=== PATIENT | female | born 1955 | race Caucasian/White ===

== ENCOUNTER → 2020-09-17 07:40 | Outpatient (CLI) | payer OTHER, SELFPAY ==
[2020-09-17 08:11] LABS: Add Manual Diff / Slide Review NO; Basophils Absolute Auto 0 /uL (0-100); Basophils Percent Auto 0.7 % (0-2); Eosinophils Absolute Auto 100 /uL (0-450); Eosinophils Percent Auto 1.5 % (2-4); Hematocrit 40.3 % (36-46); Hemoglobin 13.7 g/dL (12.0-16.0); Lymphocytes Absolute Auto 3400 /uL (1100-4500); Lymphocytes Percent Auto 51.5 % (25-40); Mean Corpuscular HGB Conc 33.9 % (30-36); Mean Corpuscular Hemoglobin 33.9 PG (26-34); Mean Corpuscular Volume 99.9 fL (80-100); Monocytes Absolute Auto 500 /uL (0-900); Monocytes Percent Auto 7.8 % (3-14); Neutrophils Absolute Auto 2500 /uL (1500-7000); Neutrophils Percent Auto 38.5 % (50-75); Platelet Count 224 X10^3/uL (150-400); Red Blood Cell Count 4.04 X10^6/uL (4.0-5.2); Red Cell Distribution Width 13.3 % (11.6-14.8); White Blood Cell Count 6.6 X10^3/uL (4.5-11.0)
[2020-09-17 08:34] LABS: Alanine Aminotransferase 28 IU/L (<35); Albumin 4.2 g/dL (3.5-5.0); Albumin Globulin Ratio 1.4 (1.0-2.8); Alkaline Phosphatase 71 U/L (38-126); Aspartate Aminotransferase 38 IU/L (14-36); BUN Creatinine Ratio 22.2 (6-22); Bilirubin Total 0.5 mg/dL (0.2-1.3); Blood Urea Nitrogen 14 mg/dL (7-17); Calcium 9.3 mg/dL (8.4-10.2); Carbon Dioxide 32 mmol/L (22-32); Chloride 101 mmol/L (98-107); Cholesterol 249 mg/dL (140-199); Estimated Glomerular Filt Rate > 60.0 mL/min (>60); Glucose 90 mg/dL (80-110); HDL Cholesterol 99 mg/dL (40-60); HEMOLYSIS < 15 (0-50); LDL Cholesterol Calculated 136 mg/dL (<100); Potassium 3.9 mmol/L (3.4-5.1); Sodium 136 mmol/L (137-145); Total Protein 7.2 g/dL (6.3-8.2); Triglycerides 68 mg/dL (35-150)
== END ==
PROVIDERS: PCP Family Medicine; Referring Provider Family Medicine; Visit Provider Family Medicine
DX: R63.6 Underweight (principal); Z13.220 Encounter for screening for lipoid disorders; Z92.89 Personal history of other medical treatment
CPT/HCPCS: 36415; 80053; 80061; 85025

== ENCOUNTER → 2020-10-18 13:52 | Outpatient (CLI) | payer OTHER, SELFPAY | PROVIDERS: PCP Family Medicine; Referring Provider Family Medicine; Visit Provider Family Medicine | DX: M81.0 Age-related osteoporosis without current pathological fracture (principal); Z13.820 Encounter for screening for osteoporosis; Z78.0 Asymptomatic menopausal state | CPT/HCPCS: 77080 ==

== ENCOUNTER → 2021-08-01 09:46 | Outpatient (CLI) | payer OTHER, SELFPAY ==
--- NOTE | 2021-08-01 09:48 | DI.RAD.S_ITS ---
PROCEDURE: XR LUMBAR SPINE 2-3V INDICATIONS: chronic back pain TECHNIQUE: Three views of the lumbar spine were acquired. COMPARISON: None. FINDINGS: Bones: 5 [id number] vertebrae are present. Generalized osteopenia. 8 mm grade 1-2 anterolisthesis of L4 on L5 and 6 mm grade 1 anterolisthesis of L5 on S1 are noted. L4 pars interarticularis defects not excluded. No vertebral body compression fractures. No suspicious bony lesions. Mild to moderate facet hypertrophy is seen throughout the lumbar spine. Disc space narrowing and degenerative endplate changes are most prominent at the L4-5 level. Soft tissues: Overlying bowel gas pattern is normal. No suspicious soft tissue calcifications. IMPRESSION: 1. Grade 1-2 anterolisthesis of L4 on L5 and grade 1 anterolisthesis of L5 on S1. 2. Arpu-qo-[id number] multilevel degenerative changes throughout the lumbar spine. Findings could be further evaluated with dedicated MRI if indicated clinically. Dictated by: Renan Bartholomew M.D. on 08/01/2021 at 10:36 Approved by: Renan Bartholomew M.D. on 08/01/2021 at 10:39
== END ==
PROVIDERS: PCP Family Medicine; Referring Provider Family Medicine; Visit Provider Family Medicine
DX: M54.41 Lumbago with sciatica, right side (principal); M43.16 Spondylolisthesis, lumbar region; M43.17 Spondylolisthesis, lumbosacral region; M47.816 Spondylosis without myelopathy or radiculopathy, lumbar region
CPT/HCPCS: 72100

== ENCOUNTER → 2021-09-05 16:30 | Outpatient (CLI) | payer OTHER, SELFPAY ==
--- NOTE | 2021-09-05 16:31 | DI.MRI.S_ITS ---
PROCEDURE: MR LUMBAR SPINE WO CON INDICATIONS: Disc degeneration, anterolisthesis TECHNIQUE: Noncontrast sagittal T1 spin echo and T2 fast echo, sagittal STIR, and T2 fast spin echo through the lumbar spine. In cases with scoliosis, additional coronal T2 fast spin echo may be performed. COMPARISON: [facility], CR, XR LUMBAR SPINE 2-3V, 08/01/2021, 9:37. FINDINGS: Image quality: Excellent. Alignment and Curvature: 5 lumbar type vertebral bodies are present by plain film. 10 mm of anterolisthesis of L4 on L5. 6 mm of anterolisthesis of L5 on S1. Bone Marrow: Marrow is of normal overall signal. No acute vertebral body compression fractures. Mild reactive signal throughout the endplates of the lumbar spine. Spinal Cord: Conus medullaris terminates at the L1-L2 disc space level. Visualized cord demonstrates normal signal and size. Paraspinous Soft Tissues: No paravertebral masses. T12-L1: Mild disc desiccation. No significant canal, or foraminal stenosis. L1-L2: Mild disc desiccation. No significant canal, or foraminal stenosis. L2-L3: Mild disc desiccation and diffuse disc bulge. Mild facet hypertrophy. Mild canal stenosis. Mild bilateral foraminal stenosis. L3-L4: Mild disc height loss and desiccation. Mild diffuse disc bulge. Mild facet hypertrophy. Mild canal stenosis. Mild bilateral foraminal stenosis. L4-L5: Moderate disc height loss and desiccation. Mild diffuse disc bulge. Moderate bilateral facet hypertrophy. Mild epidural lipomatosis. Moderate canal stenosis. Moderate right and moderate to severe left foraminal stenosis. Mild left L4 nerve root compression. L5-S1: Moderate disc height loss and desiccation. Mild diffuse disc bulge. Mild bilateral facet hypertrophy. Mild canal stenosis. Moderate to severe right and moderate left foraminal stenosis. Right L5 nerve root compression. IMPRESSION: 1. Multilevel degenerative disc and facet disease, as well as ligamentum flavum hypertrophy and epidural lipomatosis. 2. Multilevel canal stenoses, worst at L4-L5 where there is moderate canal stenosis. 3. Multilevel foraminal stenoses, worst at L4-L5 and L5-S1 where there is associated intraforaminal nerve root compression. Recommend correlation with clinical symptoms to ascertain relevance of these findings. 4. L4-L5 and L5-S1 spondylolisthesis as described above. Dictated by: Lux Stapleton M.D. on 09/06/2021 at 9:20 Approved by: Lux Stapleton M.D. on 09/06/2021 at 9:26
== END ==
PROVIDERS: PCP Family Medicine; Referring Provider Orthopaedic Surgery Orthopaedic Surgery of the Spine; Visit Provider Orthopaedic Surgery Orthopaedic Surgery of the Spine
DX: M43.17 Spondylolisthesis, lumbosacral region (principal); M48.062 Spinal stenosis, lumbar region with neurogenic claudication; M51.17 Intervertebral disc disorders with radiculopathy, lumbosacral region; M51.16 Intervertebral disc disorders with radiculopathy, lumbar region; M48.07 Spinal stenosis, lumbosacral region; G89.29 Other chronic pain
CPT/HCPCS: 72148

== ENCOUNTER → 2021-09-21 09:46 | Outpatient (CLI) | payer OTHER, SELFPAY ==
--- NOTE | 2021-09-21 09:48 | DI.CT.S_ITS ---
PROCEDURE: CT LUMBAR SPINE WO CON INDICATIONS: Spinal stenosis, lumbar region TECHNIQUE: Noncontrast 3 mm thick sections acquired from the T12 level to the sacrum. Sagittal and coronal reformats were constructed. For radiation dose reduction, the following was used: automated exposure control. COMPARISON: [facility], CR, XR LUMBAR SPINE 2-3V, 08/01/2021, 9:37. [facility], MR, MR LUMBAR SPINE WO CON, 09/05/2021, 17:14. FINDINGS: Image quality: This examination is limited by involuntary motion artifact. Bones: No acute vertebral body compression fractures. No suspicious lytic or blastic bony lesions. T12-L1: Normal. L1-L2: Normal. L2-L3: The disc height is well preserved. Mild generalized disc bulge is seen. Mild bilateral neural foraminal narrowing is seen. Mild central canal narrowing is seen. L3-L4: The disc height is well preserved. Mild to moderate disc bulge is seen. Mild to moderate facet hypertrophy is seen. Mild bilateral neural foraminal narrowing is seen. No significant central canal narrowing is seen. L4-L5: Grade 1 anterolisthesis is seen at this level, without associated pars defects. Mild loss disc height is seen. Moderate to prominent facet joint hypertrophy is seen. There is moderate right-sided and moderate to severe left-sided neural foraminal narrowing seen. There is a degree of compression seen upon the exiting nerve roots. There is severe central canal narrowing. L5-S1: Mild grade 1 anterolisthesis is seen at this level. The disc height is well preserved. At least moderate facet hypertrophy is seen. There is mild to moderate disc bulge. At least moderate bilateral neural foraminal narrowing can be seen. There is mild central canal narrowing. Soft tissues: No retroperitoneal masses or hematomas. Visualized aorta is normal in caliber. There is partial visualization of a right mammoplasty implant. A moderate amount of stool is seen within the colon. Tiny right-sided kidney stones are seen that measure up to 2 mm. IMPRESSION: Focal lower lumbar spine degenerative changes are seen at L4-L5 and L5-S1. The degenerative changes are overall better demonstrated on the recent prior lumbar MRI. Incidental note is made of: Right-sided mammoplasty implant Likely constipation The nonobstructing right-sided kidney stones Dictated by: Carlo Henry M.D. on 09/21/2021 at 10:29 Approved by: Carlo Henry M.D. on 09/21/2021 at 10:36
== END ==
PROVIDERS: PCP Family Medicine; Referring Provider Orthopaedic Surgery Orthopaedic Surgery of the Spine; Visit Provider Orthopaedic Surgery Orthopaedic Surgery of the Spine
DX: M48.061 Spinal stenosis, lumbar region without neurogenic claudication (principal); M47.816 Spondylosis without myelopathy or radiculopathy, lumbar region; M47.817 Spondylosis without myelopathy or radiculopathy, lumbosacral region; N20.0 Calculus of kidney
CPT/HCPCS: 72131

== ENCOUNTER → 2021-10-21 10:25 | Outpatient (CLI) | payer OTHER, SELFPAY | PROVIDERS: PCP Family Medicine; Referring Provider Family Medicine; Visit Provider Family Medicine | DX: M81.0 Age-related osteoporosis without current pathological fracture (principal); Z13.820 Encounter for screening for osteoporosis; Z78.0 Asymptomatic menopausal state | CPT/HCPCS: 77080 ==

== ENCOUNTER → 2021-10-21 14:38 | Outpatient (CLI) | payer OTHER, SELFPAY ==
[2021-10-21 16:27] LABS: Add Manual Diff / Slide Review NO; Basophils Absolute Auto 0 /uL (0-100); Basophils Percent Auto 0.5 % (0-2); Eosinophils Absolute Auto 100 /uL (0-450); Eosinophils Percent Auto 2.1 % (2-4); Hemoglobin 13.6 g/dL (12.0-16.0); Lymphocytes Absolute Auto 2300 /uL (1100-4500); Lymphocytes Percent Auto 35.1 % (25-40); Mean Corpuscular HGB Conc 35.7 % (30-36); Mean Corpuscular Hemoglobin 35.1 PG (26-34); Mean Corpuscular Volume 98.4 fL (80-100); Monocytes Absolute Auto 400 /uL (0-900); Monocytes Percent Auto 6.8 % (3-14); Neutrophils Absolute Auto 3700 /uL (1500-7000); Neutrophils Percent Auto 55.5 % (50-75); Platelet Count 208 X10^3/uL (150-400); Red Blood Cell Count 3.86 X10^6/uL (4.0-5.2); Red Cell Distribution Width 12.5 % (11.6-14.8); White Blood Cell Count 6.6 X10^3/uL (4.5-11.0)
[2021-10-21 16:44] LABS: BUN Creatinine Ratio 29.5 (6-22); Blood Urea Nitrogen 18 mg/dL (7-17); Calcium 9.1 mg/dL (8.4-10.2); Carbon Dioxide 30 mmol/L (22-32); Chloride 102 mmol/L (98-107); Estimated Glomerular Filt Rate > 60 mL/min (>60); Glucose 87 mg/dL (80-110); HEMOLYSIS < 15 (0-50); Potassium 4.3 mmol/L (3.4-5.1); Sodium 140 mmol/L (137-145)
[2021-11-15 11:08] LABS: Cholesterol 224 mg/dL (140-199); HDL Cholesterol 85 mg/dL (40-60); LDL Cholesterol Calculated 123 mg/dL (<100); Triglycerides 78 mg/dL (35-150)
== END ==
PROVIDERS: PCP Family Medicine; Referring Provider Orthopaedic Surgery Orthopaedic Surgery of the Spine; Visit Provider Orthopaedic Surgery Orthopaedic Surgery of the Spine
DX: Z01.818 Encounter for other preprocedural examination (principal); R73.9 Hyperglycemia, unspecified; Z01.812 Encounter for preprocedural laboratory examination; M81.0 Age-related osteoporosis without current pathological fracture; Z13.820 Encounter for screening for osteoporosis; Z78.0 Asymptomatic menopausal state; R74.8 Abnormal levels of other serum enzymes
CPT/HCPCS: 36415; 77080; 80048; 80061; 83036; 85025; 93005

== ENCOUNTER → 2021-11-15 09:11 | Outpatient (CLI) | payer OTHER, SELFPAY ==
[2021-11-15 10:15] LABS: COVID19 -Nasal RAPID Negative (Negative)
== END ==
PROVIDERS: PCP Family Medicine; Referring Provider Orthopaedic Surgery Orthopaedic Surgery of the Spine; Visit Provider Orthopaedic Surgery Orthopaedic Surgery of the Spine
DX: Z20.822 Contact with and (suspected) exposure to COVID-19 (principal)
CPT/HCPCS: 87635; C9803

== ENCOUNTER 2021-11-18 06:16 | Inpatient (IN) | payer OTHER, SELFPAY ==
[2021-11-11 12:35] VITALS: BMI 22.4
[2021-11-18] VITALS (13 sets, daily range): BP systolic 109–129; BP diastolic 49–69; PULSE 60–91; RESP 16–20; TEMP 35.7–36.8; O2SAT 94–99; BMI 22.4
[2021-11-18] MEDS: LACTATED RINGERS 1,000 ML 42 ML IV ×2 (07:17→09:29)
[2021-11-18] MEDS: PREGABALIN 75 MG CAPSULE PO (07:21)
[2021-11-18] MEDS: ACETAMINOPHEN IV 1,000 MG/100 ML VIAL 400 MG IV (07:21)
--- NOTE | 2021-11-18 07:40 | PM.PREOP ---
Pre-operative Note COVID-19 COVID-19 status: Negative Result date/Date tested (Pos, Neg/Pending): 11/17/21 Criteria for continued procedure: Expected advancement of disease process, Possibility delay results in more complex future surgery or treatment, Increased loss of function, Continuing or worsening of significant or severe pain, Deterioration of the patient's condition or overall health and Delay expected to result in less-positive ultimate med/surg outcome Interval Note History & Physical reviewed/Exam performed by Physician: Yes Changes to H&P: No
[2021-11-18] MEDS: CEFAZOLIN 2 GM/100 ML PREMIX 100 ML IV ×2 (08:14→15:59)
--- NOTE | 2021-11-18 08:33 | SUR.OPER ---
Prone on spine table, head in foam head support, padded chest and pelvic supports, gel pad at knees, lower legs supported by pillows; nipples, genitalia and toes free of pressure, arms secured on foam padded arm boards at <90 degrees abduction. Tape over blanket at thigh secured to table.
[2021-11-18] MEDS: BUPIVACAINE 0.25% (PF) 30 ML, EPINEPHrine 0.3 MG INJ (08:43)
[2021-11-18] MEDS: BUPIVACAINE LIPOSOME 266 MG/20 ML VIAL INJ (08:43)
--- NOTE | 2021-11-18 11:00 | DI.RAD.S_ITS ---
PROCEDURE: XR LUMBAR SPINE 2-3V INDICATIONS: L4-5, L5-S1 ROBOT TLIF TECHNIQUE: 2 intraoperative views of the lumbar spine were acquired. COMPARISON: [facility], , XR LUMBAR SPINE 2-3V, 08/01/2021, 9:37. FINDINGS: Pedicle screw fixation spanning L4-S1 with intervertebral body spacers. Anterolisthesis of L4 on L5 is similar to slightly improved. IMPRESSION: Intraoperative guidance provided. Dictated by: Stevie Barnes M.D. on 11/18/2021 at 12:31 Approved by: Stevie Barnes M.D. on 11/18/2021 at 12:32
--- NOTE | 2021-11-18 11:51 | P.OP_ITS ---
Operative Date/Time/Diagnoses Date of procedure: 11/18/21 Time of procedure: 07:40 Pre-op diagnosis: 1. L4-5, L5-S1 spondylolisthesis 2. L4-5, L5-S1 spinal stenosis with neurogenic claudication Post-op diagnosis: same Procedure & Clinicians Procedure: 1. L4-5, L5-S1 Postero-lateral and posterior interbody fusion 2. L4-5, L5-S1 interbody cage placement. 3. L4-5, L5-S1 decompressive laminectomy with bilateral facetecomies 4. L4-5, L5-S1 Posterior segmental instrumentation 5. Langlois of bone marrow from iliac crest 6. Utilization of microsurgical technique and operating microscope 7. Utilization of robotic assisted navigation Same procedure as scheduled: Yes Indications: Patient has been having chronic back pain and worsening lumbar radiculopathy. Patient failed multiple conservative management with worsening pain weakness and numbness in her lower extremity. Patient has been having difficulty performing activity of daily living. After discussing risks benefits of treatment options, patient elected proceed with surgery. Surgeon: Gregory Pardo Storage Administrator: Tung Littlejohn Click Yes if Unassisted: No Anesthesia Type: General Operative Notes Closure Type: primary Specimen(s): none sent Prosthetic devices, grafts, tissues, transplants, or devices: Globus CREO MIS screws, Rise cages Applied: catheter Estimated Blood Loss (mL): 100 Blood products transfused: none Procedure in detail: Patient was seen in the preoperative area. Risks and benefits of the surgery was discussed with the patient. Informed consent was obtained from the patient and placed in the chart. Surgical site was marked. Patient was taken to the operative room. General anesthesia was administered. Prophylactic antibiotic was given to the patient less than 30 min before the incision was made. Patient was placed into a prone position on the Som table. Patient's back was then prepped and draped in the sterile fashion. Time-out was performed at this time. After patient was prepped and draped, patient's PSIS was palpated and marked bilaterally. Small 1 cm incision was made over the PSIS for placement of the reference probes. Two trocar was placed into the PSIS 1 on each side. The reference probe was attached to the trocar of the reference apparatus. At this time the C-arm imaging was used to confirm AP and lateral of L4-L5, L5- S1 vertebrae and merged the C-arm imaging using the [employer] robotic navigation system with the CT of the lumbar spine. After successful merging was completed and confirmed, skin marker was used to aman out the skin incision using the Kihon robotic arm. Bilateral incision was made at this time. Pre templated trajectory was used and guided using the [employer] robotic navigation system for bilateral L4, L5, S1 pedicle screw placement. This was done by using the robotic arm to guide the high-speed bur to make a cortical entry point. Next a drill was placed also using the robotic arm and guided using the navigation system drilling partially through bilateral L4, L5 and S1 pedicles. Next L4, L5, S1 pedicle screws it was pre templated and measured was placed onto the power waste collection driver and inserted into the pedicles bilaterally. After all 6 screws were placed C-arm imaging was taken of both AP and lateral to confirm the placement. Excellent placement of the screws were confirmed and a matched precisely with the pre planned screw placement using the navigation sys tem. MARs retractor was inserted using [employer] guidence. Globus MARS retractors was placed inside the incision and docked onto the L4 and L5 lamina. Using microsurgical technique and operating microscope, a L4, L5 laminectomy and L4-5, L5-S1 facetectomy was performed using a Kerrison rongeur. Patient was found have severe lateral recess and neural foramen stenosis which was fully d ecompressed after the laminectomy facetectomy. More than 75% of the facets were removed during the process of decompression rendering L4-5, L5-S1 level grossly unstable and required a fusion procedure at the same time. The disc space at L4-5, L5-S1 was identified, and a total diskectomy was performed at L4-5, L5-S1 level. The endplates were decorticated using a rasp and shaver. The total diskectomy and decortication was performed at L4-5, L5-S1 level in order to to accomplish a L4-5, L5-S1 fusion. The local bone from the laminectomy and facetectomy was saved for local bone grafting. After the total diskectomy and decortication was completed, Trifecta bone graft material was combined with local bone that was harvested earlier. At this time, a separate skin is incision was made over the iliac crest. A Jamshidi needle was inserted into the iliac crest through a separate skin incision. 5 cc of bone marrow aspiration was obtained through the separate skin incision using a Jamshidi needle from the iliac crest. The bone marrow aspiration was combined with local bone and the Trifecta bone grafting material. The bone grafting material was placed into the L4-5, L5-S1 interbody space along with a expandable cage. The cage was expanded to its maximum height using the torque limiting screwdriver. The disc preparation as well as the cage insertion were also performed under navigation guidance. After the cage was placed, AP and lateral C-arm imaging was taken to confirm placement of the cage and excellent position was confirmed. Globus MARS retractor was inserted and docked onto the L4-5, L5-S1 posterolateral gutter on the right side. Using the power drill, posterior- lateral decortication was performed at L4-5, L5-S1 level until bleeding cortical bone was identified. The remaining bone grafting material was placed into the L4-5, L5-S1 posterior lateral gutter he order to accomplish posterolateral fusion at the L4-5, L5-S1 level. At this time the tulips were attached to the L4, L5, S1 pedicle screw shanks. After measuring the length of the rods, they were inserted into the tulips of the pedicle screws and locked in place using locking caps and torque limiting screwdriver bilaterally. Total 6 caps and 2 titanium rods was used in order to complete the posterior instrumentation construct. The locking caps reduce the spondylolisthesis when it was placed through the threaded reduction blade attached to the tulips. After all the hardware was placed, and confirmed with AP and lateral C-arm imaging, the wound was then irrigated with sterile normal saline and packed with Ray-Arvin gauze for 3 min to accomplish hemostasis. After the gauze was removed the deep fascia was closed with #1 Vicryl suture. The subcutaneous layer was closed with 2-0 Vicryl. The skin was closed with skin zion. Patient tolerated the procedure well. There were no complications. Neuro monitoring system was used to monitor patient's neurologic status throughout entire procedure. There was no disturbance of the neural monitoring signals throughout the case. Complications: none Post-operative Condition: stable Disposition: PACU Plan for aftercare: Admit to inpatient hospital
[2021-11-18] MEDS: HYDROMORPHONE 2 MG INJ IV (12:13)
[2021-11-18] MEDS: OXYCODONE IR 5 MG TABLET PO (12:19)
[2021-11-18] MEDS: SODIUM CHLORIDE 0.9% 1,000 ML 100 ML IV (14:33)
--- NOTE | 2021-11-18 15:12 | PC.NURSE ---
Pt to room 209 via bed from PACU. Pt is awake, alert, and oriented. States she is comfortable at 4/10 pain. IVF infusing as ordered. SCDS on and running. Oriented Pt to room, call light, bed controls, and tv controls. Reminded Pt that she is not to get out of bed without assistance and bed alarm has been placed on for safety.
--- NOTE | 2021-11-18 15:57 | PT-IP ANOTE ---
Received PT orders, reviewed the chart, and met with pt this PM. Was able to gather PLOF but pt was reporting 8/10 pain and felt too woozy to initiate PT. Notified RN. Will follow up Thursday AM.
[2021-11-18] MEDS: HYDROMORPHONE 0.5 MG INJ IV (15:59)
[2021-11-18] MEDS: ONDANSETRON 4 MG/2 ML INJ IV (15:59)
[2021-11-18] MEDS: OXYCODONE IR 5 MG TABLET 10 MG PO (19:33)
[2021-11-18] MEDS: DOCUSATE 100 MG CAPSULE PO (21:44)
[2021-11-18] MEDS: hydrOXYzine pamoate 25 MG CAPSULE PO (21:44)
[2021-11-18] MEDS: SENNOSIDES 8.6 MG TABLET 17.2 MG PO (21:44)
[2021-11-19] VITALS (9 sets, daily range): BP systolic 90–115; BP diastolic 37–52; PULSE 65–75; RESP 15–20; TEMP 35.6–36.4; O2SAT 93–98
[2021-11-19] MEDS: CEFAZOLIN 2 GM/100 ML PREMIX 100 ML IV (00:15)
[2021-11-19] MEDS: SODIUM CHLORIDE 0.9% 1,000 ML 100 ML IV ×2 (00:16→11:12)
[2021-11-19] MEDS: OXYCODONE IR 5 MG TABLET 10 MG PO ×5 (00:16→19:45)
[2021-11-19 07:40] LABS: Add Manual Diff / Slide Review NO; Basophils Absolute Auto 0 /uL (0-100); Basophils Percent Auto 0.1 % (0-2); Eosinophils Absolute Auto 0 /uL (0-450); Eosinophils Percent Auto 0.1 % (2-4); Hematocrit 30.1 % (36-46); Hemoglobin 10.7 g/dL (12.0-16.0); Lymphocytes Absolute Auto 2800 /uL (1100-4500); Lymphocytes Percent Auto 25.9 % (25-40); Mean Corpuscular HGB Conc 35.5 % (30-36); Mean Corpuscular Hemoglobin 34.7 PG (26-34); Mean Corpuscular Volume 97.7 fL (80-100); Monocytes Absolute Auto 900 /uL (0-900); Neutrophils Absolute Auto 7200 /uL (1500-7000); Neutrophils Percent Auto 65.9 % (50-75); Platelet Count 159 X10^3/uL (150-400); Red Blood Cell Count 3.08 X10^6/uL (4.0-5.2); Red Cell Distribution Width 12.7 % (11.6-14.8); White Blood Cell Count 10.9 X10^3/uL (4.5-11.0)
[2021-11-19 07:55] LABS: Alanine Aminotransferase 32 IU/L (<35); Albumin 3.2 g/dL (3.5-5.0); Albumin Globulin Ratio 1.4 (1.0-2.8); Alkaline Phosphatase 54 U/L (38-126); Aspartate Aminotransferase 39 IU/L (14-36); BUN Creatinine Ratio 22.6 (6-22); Bilirubin Total 0.2 mg/dL (0.2-1.3); Blood Urea Nitrogen 12 mg/dL (7-17); Calcium 8.1 mg/dL (8.4-10.2); Carbon Dioxide 27 mmol/L (22-32); Chloride 106 mmol/L (98-107); Cholesterol 173 mg/dL (140-199); Estimated Glomerular Filt Rate > 60 mL/min (>60); Globulin 2.3 g/dL (1.7-4.1); Glucose 99 mg/dL (80-110); HDL Cholesterol 66 mg/dL (40-60); HEMOLYSIS < 15 (0-50); LDL Cholesterol Calculated 96 mg/dL (<100); Potassium 3.8 mmol/L (3.4-5.1); Sodium 137 mmol/L (137-145); Total Protein 5.5 g/dL (6.3-8.2); Triglycerides 56 mg/dL (35-150)
[2021-11-19] MEDS: MAGNESIUM HYDROXIDE 30 ML UDC PO (08:19)
[2021-11-19] MEDS: ONDANSETRON 4 MG/2 ML INJ IV ×2 (08:20→23:17)
[2021-11-19] MEDS: DOCUSATE 100 MG CAPSULE PO ×2 (08:21→19:45)
--- NOTE | 2021-11-19 08:53 | P.PN_ITS ---
Subjective Subjective Date Patient Seen: 11/19/21 Time Patient Seen: 08:53 Interval history: Patient is complaining of moderate to severe low back pain. She has not worked with physical therapy or occupational therapy yet. She is somewhat hypotensive at 96/40. Not complaining of dizziness or lightheadedness currently. She notes she has some new left thigh numbness since surgery, which is slowly resolving. Exam Vital Signs (past 8 hours): - 11/19/21 05:00 11/19/21 05:20 Temperature 96.9 F L Pulse Rate 70 Respiratory Rate 17 15 Blood Pressure 96/40 L 98/48 L Pulse Oximetry 94 93 Oxygen Flow Rate 0 0 Oxygen Delivery Method Room Air Oxygen Flow Rate 0 Narrative Exam Narrative: Pleasant 66-year-old female, resting comfortably in bed, no acute distress. Dressings demonstrates some scant serosanguineous drainage, no surrounding erythema, induration, nehemiah pus. Bilateral lower extremity: Motor functions are grossly intact, sensation is grossly intact light touch, calves are soft and nontender to palpation. Objective Labs Result Diagrams: 11/19/21 06:40 11/19/21 06:40 Labs: Laboratory Results - last 24 hr 11/19/21 11/19/21 11/19/21 06:40 06:40 06:40 WBC 10.9 RBC 3.08 L Hgb Cancelled 10.7 L Hct Cancelled 30.1 L MCV 97.7 MCH 34.7 H MCHC 35.5 RDW 12.7 Plt Count 159 Neut % (Auto) 65.9 Lymph % (Auto) 25.9 Person % (Auto) 8.0 Eos % (Auto) 0.1 L Baso % (Auto) 0.1 Neut # (Auto) 7200 H Lymph # (Auto) 2800 Person # (Auto) 900 Eos # (Auto) 0 Baso # (Auto) 0 Sodium 137 Potassium 3.8 Chloride 106 Carbon Dioxide 27 BUN 12 Creatinine 0.53 Estimated GFR > 60 BUN/Creatinine Ratio 22.6 H Glucose 99 Calcium 8.1 L Total Bilirubin 0.2 AST 39 H ALT 32 Alkaline Phosphatase 54 Total Protein 5.5 L Albumin 3.2 L Globulin 2.3 Albumin/Globulin Ratio 1.4 Triglycerides 56 Cholesterol 173 LDL Cholesterol, Calc 96 HDL Cholesterol 66 H [facility] Medical History Anterolisthesis of lumbosacral spine Elevated liver enzymes History of HPV infection Low back pain with right-sided sciatica Normal colonoscopy Osteoporosis Spinal stenosis Varicose vein of leg Welcome to Medicare preventive visit Surgical History History of open reduction and internal fixation (ORIF) procedure History of tonsillectomy and adenoidectomy Hx of abdominoplasty Hx of breast augmentation Hx of cosmetic surgery Social History household members: family Smoking Status: Never smoker alcohol intake: former Assessment & Plan Post-op Postoperative Procedures: Procedures Operation Date: 11/18/21 07:45 Actual Procedure Side Surgeon p L4-5, L5-S1 TLIF w. posterior instrumentation -Robot Not Applicable Gregory Pardo MD Postoperative day: 1 Postoperative status narrative: -stable status post L4-5, L5-S1 TLIF Postoperative plan narrative: -mobilize with PT/OT. Weightbearing as tolerated with front wheel walker. Limit bending, lifting, twisting x6 weeks -continue with multimodal pain management. Encouraged use of oral pain medications. Will add tramadol for breakthrough pain. Patient declined to make Tylenol scheduled. -DC urinary catheter today -continue to monitor for hypotension -disposition: Likely home tomorrow with daughter Quality VTE Deep Vein Thrombosis/Pulmonary Embolism Present on Admission: No
--- NOTE | 2021-11-19 09:40 | PT.IIE ---
Current Diagnoses Hyperlipidemia, unspecified (11/18/21) Spondylolisthesis, lumbar region (11/18/21) Spinal stenosis, lumbar region with neurogenic claudication (11/18/21) Lumbago with sciatica, right side (11/18/21) Age-related osteoporosis without current pathological fracture (11/18/21) Abnormal levels of other serum enzymes (11/18/21) Surgery Performed Operation Date: 11/18/21 07:45 Actual Procedures p L4-5, L5-S1 TLIF w. posterior instrumentation -Robot(Not Applicable) - Gregory Pardo MD Surgical History (Last Reviewed 11/19/21 @ 08:55 by Bernadette Blount PA-C) History of open reduction and internal fixation (ORIF) procedure History of tonsillectomy and adenoidectomy Hx of abdominoplasty Hx of breast augmentation Hx of cosmetic surgery Medical History (Last Reviewed 11/19/21 @ 08:55 by Bernadette Blount PA-C) Anterolisthesis of lumbosacral spine Elevated liver enzymes History of HPV infection Low back pain with right-sided sciatica Normal colonoscopy Osteoporosis Spinal stenosis Varicose vein of leg Welcome to Medicare preventive visit Physical Therapy Inpatient Evaluation/Re-Eval M1 PT/OT-IP Prior Functional Status Start: 11/18/21 14:52 Freq: NEEDED Status: Active Protocol: Document 11/19/21 09:40 AB (Rec: 11/19/21 14:00 AB [id number]) Medical Review Prior Functional Status Medical History Reviewed Yes Communication able to make needs known Mobility and Gait pt stated that she is independent with all mobilities without assistive device. Social History Household Members family Living Arrangements House Number of Floors (Floors) One Floor Number of Stairs To Enter/Railing? 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 pt lives in [place] with her daughter, Josh, and grandbaby, Rojelio. Josh states she will be available and able to assist at discharge as long as pt's needs are relatively simple. M2 PT-IP Current Condition Start: 11/18/21 14:52 Freq: NEEDED Status: Active Protocol: Document 11/19/21 09:40 AB (Rec: 11/19/21 14:00 AB [email or web address]) Physical Therapy Current Condition Current Condition Evaluation Date 11/19/21 Treatment Diagnosis s/p L4-5, L5S1 TLIF; difficulty in wakiing Onset Date 11/18/21 M3 PT-IP Subjective Start: 11/18/21 14:52 Freq: NEEDED Status: Active Protocol: Document 11/19/21 09:40 AB (Rec: 11/19/21 14:00 AB [email or web address]) Subjective Physical Therapy Visit Type Type Initial Evaluation Visit Start Time 09:40 Visit Stop Time 10:20 Total Visit Minutes 40 Number of QUARTER TRIMMER Visits 0 Physical Therapy Visit Comments Patient Comments agreeable to do PT Therapy Pain Assessment Pain When Pain Assessed At Rest Pain Present Pain Present Pain Reported Location back Intensity 7 Scale Used Numeric (0 - 10) Pain Behaviors Guarding Pain Management Techniques Distraction,Modification of Treatment,Re-positioning, Timing of Activity with Medications M4 PT-IP Mobility and Gait Start: 11/18/21 14:52 Freq: NEEDED Status: Active Protocol: Document 11/19/21 09:40 AB (Rec: 11/19/21 14:00 AB [email or web address]) PT-Bed Mobility Assessment Rolling Type of Rolling Log Rolling Level of Assist Maximal Assistance Supine to Sit Supine to Sit Maximum Assistance,1 Person Assistance,2 Person Assistance Sit to Supine Sit to Supine Maximum Assistance,1 Person Assistance Scooting Scooting to Edge of Bed Maximum Assistance PT-Transfer Assessment Sit to and From Stand Sit to and from Stand Maximum Assistance,1 Person Assistance,2 Person Assistance ,Use of Upper Extremities Equipment Transfer Assistive Device Gait Belt,Front Wheeled Walker Orthotic/Prosthetic Devices or Brace: No Comments Mobility Comments educated pt on back precautions and log roll bed mobility. BP in supine: 97/46. pt c/o 7 /10 LBP. completed supine to sit max A and max cues. min to mod A for sitting balance on EOB. c/o lightheadedness. BP sittin/40. pt sat on EOB for ~ 2 more minutes. BP checked: 90/45. pt requesting to go back to bed. agreed to stand and completed sit to stand max A x 1-2 and max cues. instructed to take steps towards HOB and completed ~ 3 steps using FWW max A 1-2 and cues. presents with unstady gait. c/o dizziness. completed sit to supine max A and max cues for techniques. positioned pt in bed. BP in supine: 86/47. call light and table placed within reach. nurse aware of BP Gait Assessment Gait Gait Assistance Required: Maximum Assistance,1 Person Assist,2 Person Assist Distance (Feet) 2 Able to Maintain Weight Bearing Status Yes During Gait Assistive Devices Assistive Device Gait Belt,Front Wheeled Walker Orthotic/Prosthetic Devices or Brace: No Gait Deviations General Gait Pattern Decreased Stride Length, Decreased Feet Clearance Factors Limiting Gait Function Factors Limiting Gait Function Decreased Activity Tolerance, Decreased Strength,Difficulty Following Directions,Limited Range of Motion,Pain,Poor Balance,Poor Safety Awareness PT-Balance Assessment Sitting Balance and Reactions Static Sitting Balance Ability Fair Dynamic Sitting Balance Ability Fair Standing Balance and Reactions Static Standing Balance Ability Poor Dynamic Standing Balance Ability Poor Device Used FWW M5 PT-IP Objective Assessments Start: 11/18/21 14:52 Freq: NEEDED Status: Active Protocol: Document 11/19/21 09:40 AB (Rec: 11/19/21 14:00 [email or web address]) Orientation Orientation/Cognition Level of Alertness Alert Orientation Name,Place,Situation Language Function Ability No Deficits Noted Safety Awareness Decreased Safety Awareness Memory Description Short Term Impaired Comments needs constant cues to keep eyes open Gross Range of Motion Lower Extremity ROM Assessment Within Functional Limits Strength Lower Extremity Strength Hip 4-/5 Knee 4-/5 Coordination Assessment Gross Coordination Gross Coordination WNL Sensation Assessment Sensation Gross Sensation WNL Muscle Tone Muscle Tone WNL Yes M6 PT-IP Treatment Start: 11/18/21 14:52 Freq: NEEDED Status: Active Protocol: Document 11/19/21 09:40 AB (Rec: 11/19/21 14:00 AB [email or web address]) Physical Therapy Treatment Education Education Provided Precautions,Weight Bearing Status,Post-Op Packet,Safety M7 PT-IP Assessment and Plan Start: 11/18/21 14:52 Freq: NEEDED Status: Active Protocol: Document 11/19/21 09:40 AB (Rec: 11/19/21 14:00 AB [email or web address]) PT Summary Assessment and Plan Potential Rehabilitation Potential Fair Status of Condition at Evaluation Evolving Summary Impairments Pain,ROM,Strength,Balance, Coordination,Sensation,Tone, Cognition,Bed Mobility, Transfers,Gait,Activity Tolerance Assessment Summary pt requiring max A x1-2 with mobility and unable to tolerate much activity with c/ o lightheadedness with upright mobility. pt unable to ambulate at this time. pt will require SNF rehab to improve strength and independence. will continue to assess progress. Goals Bed Mobility Goal Minimal Assistance Transfer Goal Minimal Assistance,Front Wheeled Walker Gait Goal Minimal Assistance,Front Wheel Walker Gait Distance 50 Other Goals improve bed mobility, transfers, ambulation using FWW 150 ft SBA up/down 3 steps R rail ascending SBA Days to Meet Goals 10 Frequency of Treatment Frequency Of Treatment Twice a Day Treatment Plan Physical Therapy Treatment Plan Bed Mobility Training,Transfer Training,Gait Training, Therapeutic Exercise,Balance Retraining,Post Op Education, Discharge Planning,Hot or Cold Pack,Neuromuscular Re-ed, Coordination Retraining,Manual Therapy Precautions Lumbar Precautions Log Roll,No Twisting,Limit Bending,Lifting Restriction of 10 lbs,Gait Belt above Incisional Area Recommendations To Nursing Amount of Assist Needed 2 Person Assist Discharge Recommendations PT Discharge Recommendations Home with 15/09 Assist Available,Home Health,SNF Rehab,Home vs SNF Transportation Needs at Discharge Private Vehicle,Wheelchair/ Cabulance
[2021-11-19] MEDS: TRAMADOL 50 MG TABLET PO ×3 (09:45→22:18)
--- NOTE | 2021-11-19 14:35 | CM.DANOTE ---
Addendum entered by SANDRA Rodriguez 11/21/21 11:33: DC Note: Patient cleared by PT for return home w/family to assist. Patient confident about her return home, close outpatient f/u [facility] Original Note: Initial DCP Assessment Note Pt is a 66 yo female, resident of [place], now POD#[address] [place] [address] Pardo PCP: Lopez Bhakta Payer: Alen [facility] Reviewed chart, pt discussed in multidisciplinary rounds this morning. Therapy currently recommending SNF based on initial PT eval; patient is a 2 person assist. Indp at baseline. Patient hopeful to return home, lives w/dtr Josh who can assist as long as patient is closer to one person assist Unable to complete this initial assessment at bedside, patient complaining of pain this morning; needs follow up tomorrow AM SANDRA Marquez Discharge Planning/Care Management CM Discharge Assessment Start: 11/19/21 14:30 Freq: Status: Active Protocol: Document 11/19/21 14:30 WOOD (Rec: 11/19/21 14:35 WOOD [id number]) Discharge Planning Assessment Assigned College Tutor SANDRA Lawrence DPOA/Assigned Designee Name Josh Edyta Awad dtr Contact Information [phone] Advance Directives? No History Provided By Patient,Medical Record Prior Living Arrangements House Household Members family Type of transporation used prior to Relies on Others admit Independent with ADL's Yes Is patient alert and oriented? 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 PT: pt lives in [place] with her daughter, Josh, and grandbaby, Rojelio. Josh states she will be available and able to assist at discharge as long as patient's needs are relatively simple SNF currently recommended based on initial eval, 2 person assist. Patient has [facility] Patient/Family Preference Snf Facility,Home with Home Health Barriers to Discharge Yes Comment Rec is SNF at this time, patient has [facility], likely home w/family vs SNF is [place] approves Transportation Arrangement Family if home, cabulance if SNF Additional Comment Needs follow up
[2021-11-19] MEDS: ACETAMINOPHEN 325 MG TABLET 650 MG PO (15:14)
--- NOTE | 2021-11-19 15:30 | PT.IPTN ---
Current Diagnoses Hyperlipidemia, unspecified (11/18/21) Spondylolisthesis, lumbar region (11/18/21) Spinal stenosis, lumbar region with neurogenic claudication (11/18/21) Lumbago with sciatica, right side (11/18/21) Age-related osteoporosis without current pathological fracture (11/18/21) Abnormal levels of other serum enzymes (11/18/21) Surgery Performed Operation Date: 11/18/21 07:45 Actual Procedures p L4-5, L5-S1 TLIF w. posterior instrumentation -Robot(Not Applicable) - Gregory Pardo MD Physical Therapy Treatment Note M2 PT-IP Current Condition Start: 11/18/21 14:52 Freq: NEEDED Status: Active Protocol: Document 11/19/21 09:40 AB (Rec: 11/19/21 14:00 AB [email or web address]) Physical Therapy Current Condition Current Condition Evaluation Date 11/19/21 Treatment Diagnosis s/p L4-5, L5S1 TLIF; difficulty in wakiing Onset Date 11/18/21 M3 PT-IP Subjective Start: 11/18/21 14:52 Freq: NEEDED Status: Active Protocol: Document 11/19/21 15:30 AB (Rec: 11/19/21 16:42 AB [email or web address]) Subjective Physical Therapy Visit Type Type Treatment Note Visit Start Time 15:30 Visit Stop Time 16:25 Total Visit Minutes 55 Number of CLAY MAKER Visits 0 Physical Therapy Visit Comments Patient Comments agreeable to do PT Therapy Pain Assessment Pain When Pain Assessed At Rest Pain Present Pain Present Pain Reported Location back Intensity 4 Scale Used increases to 8/10 with mobility Pain Management Techniques Apply Cold,Distraction, Modification of Treatment,Re- positioning,Timing of Activity with Medications M4 PT-IP Mobility and Gait Start: 11/18/21 14:52 Freq: NEEDED Status: Active Protocol: Document 11/19/21 15:30 AB (Rec: 11/19/21 16:42 AB [id number]) PT-Bed Mobility Assessment Rolling Level of Assist Standby Assistance,Moderate Assistance Supine to Sit Supine to Sit Standby Assistance,Moderate Assistance Sit to Supine Sit to Supine Standby Assistance PT-Transfer Assessment Sit to and From Stand Sit to and from Stand Contact Guard Assistance, Minimal Assistance,1 Person Assistance,Use of Upper Extremities Equipment Transfer Assistive Device Gait Belt,Front Wheeled Walker Orthotic/Prosthetic Devices or Brace: No Transfers Transfer Destination Chair Transfer Technique Stand Step Pivot Transfer Ability Level of Assist Minimal Assistance,1 Person Assistance,Use of Upper Extremities Comments Mobility Comments daughter in room with pt. pt requires cues to recall back precautions. BP ins upine: 97 /47. pt completed supine to sit log roll mod A and cues. requires assist with trunk preventing to lean back. positioned on EOB . BP in sittin/51. completed sit to stand min A and ambulated in room using FWW min A ~ 20 ft. pt sat on the chair. BP after ambulation: 115/54. pt with no c/o dizziness. pt concerned about sit to stand from the chair. educated pt on techniques. pt completed sit <>stand from chair x 2 requiring CGA and cues. caregiver training initiated. educated daughter on pt's back precautions and log roll bed mobility. educated daughter on how to use safety belt and how to assist pt. daughter was able to put safety belt on pt and assisted pt with sit to stand and ambulated pt in room using FWW CGA to min A. pt sat on chair and rested. agreed to do bed mobility. daughter was able to assist pt with transfer to the bed using FWW CGA to min A. pt completed log roll sit<>supine x 2 sets. PT cueing pt and educated daughter on bed mobility techniques on first set. pt able to complete bed mobility on 2nd set SBA and daughter providing cues. pt transferred back to chair using FWW with daughter assisting. positioned pt on the chair. call light and table placed within reach. talked to pt regarding stair climbing and stated that there is another way into the house and she can go through the garage which has 4 steps but B rails to hold on to. pt also confirmed that she has a FWW at home. set up another caregiver training with daughter but daughter will not be able to come in the morning but will come in at 1pm tomorrow. Gait Assessment Gait Gait Assistance Required: Contact Guard Assist,Minimum Assistance Distance (Feet) 20 Able to Maintain Weight Bearing Status Yes During Gait Assistive Devices Assistive Device Gait Belt,Front Wheeled Walker Orthotic/Prosthetic Devices or Brace: No Gait Deviations General Gait Pattern Decreased Stride Length, Decreased Feet Clearance, Narrow Based Gait Factors Limiting Gait Function Factors Limiting Gait Function Decreased Activity Tolerance, Decreased Strength,Difficulty Following Directions,Limited Range of Motion,Pain,Poor Balance,Poor Safety Awareness M5 PT-IP Objective Assessments Start: 11/18/21 14:52 Freq: NEEDED Status: Active Protocol: Document 11/19/21 09:40 AB (Rec: 11/19/21 14:00 AB [email or web address]) Orientation Orientation/Cognition Level of Alertness Alert Orientation Name,Place,Situation Language Function Ability No Deficits Noted Safety Awareness Decreased Safety Awareness Memory Description Short Term Impaired Comments needs constant cues to keep eyes open Gross Range of Motion Lower Extremity ROM Assessment Within Functional Limits Strength Lower Extremity Strength Hip 4-/5 Knee 4-/5 Coordination Assessment Gross Coordination Gross Coordination WNL Sensation Assessment Sensation Gross Sensation WNL Muscle Tone Muscle Tone WNL Yes M6 PT-IP Treatment Start: 11/18/21 14:52 Freq: NEEDED Status: Active Protocol: Document 11/19/21 15:30 AB (Rec: 11/19/21 16:42 AB [id number]) Physical Therapy Treatment Education Education Provided Precautions,Safety M7 PT-IP Assessment and Plan Start: 11/18/21 14:52 Freq: NEEDED Status: Active Protocol: Document 11/19/21 15:30 AB (Rec: 11/19/21 16:42 AB [email or web address]) PT Summary Assessment and Plan Potential Rehabilitation Potential Good Summary Impairments Pain,ROM,Strength,Balance, Coordination,Sensation,Tone, Cognition,Bed Mobility, Transfers,Gait,Activity Tolerance Progress Towards Goals Slow Progress due to Pain Assessment Summary Pt continues to c/o increase pain but able to ambulate this afternoon. caregiver training initiated but further training is needed. set up another caregiver training tomorrow and daughter can only come in the afternoon at 1pm. will continue to assess progress. Goals Bed Mobility Goal Minimal Assistance Transfer Goal Minimal Assistance,Front Wheeled Walker Gait Goal Minimal Assistance,Front Wheel Walker Gait Distance 50 Other Goals improve bed mobility, transfers, ambulation using FWW 150 ft SBA up/down 4 steps B rail ascending SBA Days to Meet Goals 10 Frequency of Treatment Frequency Of Treatment Twice a Day Treatment Plan Physical Therapy Treatment Plan Bed Mobility Training,Transfer Training,Gait Training, Therapeutic Exercise,Balance Retraining,Post Op Education, Discharge Planning,Hot or Cold Pack,Neuromuscular Re-ed, Coordination Retraining,Manual Therapy Other Recommendations and Next Treatment caregiver trainin/28 @ [facility] 1pm; stair climbing training Precautions Lumbar Precautions Log Roll,No Twisting,Limit Bending,Lifting Restriction of 10 lbs,Gait Belt above Incisional Area Recommendations To Nursing Amount of Assist Needed 1 Person Assist Discharge Recommendations PT Discharge Recommendations Home with 15/09 Assist Available,Home Health Transportation Needs at Discharge Private Vehicle,Wheelchair/ Cabulance
[2021-11-19] MEDS: SENNOSIDES 8.6 MG TABLET 17.2 MG PO (19:45)
[2021-11-19] MEDS: hydrOXYzine pamoate 25 MG CAPSULE PO (22:18)
[2021-11-20] VITALS (7 sets, daily range): BP systolic 85–122; BP diastolic 32–60; PULSE 61–83; RESP 16–18; TEMP 35.8–36.1; O2SAT 93–100
[2021-11-20] MEDS: ONDANSETRON 4 MG/2 ML INJ IV ×2 (04:15→23:38)
[2021-11-20] MEDS: OXYCODONE IR 5 MG TABLET 10 MG PO ×2 (04:18→15:08)
--- NOTE | 2021-11-20 06:39 | PC.NURSE ---
End of shift note. Care of patient [id number]. Patient AAOX3, c/o 09/01 back pain, relieved with oxycodone 10mg. Patient up to bathroom with SBA. Good CMS Bilateral LE, while at rest, when asked, does say yes to some BLE numbness. Plan is for patient to possibly discharge home today with daughter.
--- NOTE | 2021-11-20 07:13 | PM.PNPO.1 ---
Subjective Subjective Date Patient Seen: 11/20/21 Time Patient Seen: 07:13 Interval history: Patient's pain is 8/10. Patient denies fever or chills. No nausea or vomiting. Exam Vital Signs (past 8 hours): - 11/19/21 23:50 11/20/21 03:50 Temperature 96.0 F L 97.0 F L Pulse Rate 68 65 Respiratory Rate 15 16 Blood Pressure 90/46 L 103/51 L Pulse Oximetry 97 93 Oxygen Flow Rate 0 Oxygen Delivery Method Room Air Oxygen Flow Rate 0 Narrative Exam Narrative: 66-year-old female resting comfortably in bed in no apparent distress. Dressing shows scant drainage. Neurovascular status is intact bilateral lower extremities. Const General: cooperative and comfortable Resp Effort & Inspection: normal respiratory effort and able to speak in complete sentences Objective Labs Result Diagrams: 11/19/21 06:40 11/19/21 06:40 Labs: Laboratory Results - last 24 hr 11/19/21 11/19/21 11/19/21 06:40 06:40 06:40 WBC 10.9 RBC 3.08 L Hgb Cancelled 10.7 L Hct Cancelled 30.1 L MCV 97.7 MCH 34.7 H MCHC 35.5 RDW 12.7 Plt Count 159 Neut % (Auto) 65.9 Lymph % (Auto) 25.9 [place] % (Auto) 8.0 Eos % (Auto) 0.1 L Baso % (Auto) 0.1 Neut # (Auto) 7200 H Lymph # (Auto) 2800 [place] # (Auto) 900 Eos # (Auto) 0 Baso # (Auto) 0 Sodium 137 Potassium 3.8 Chloride 106 Carbon Dioxide 27 BUN 12 Creatinine 0.53 Estimated GFR > 60 BUN/Creatinine Ratio 22.6 H Glucose 99 Calcium 8.1 L Total Bilirubin 0.2 AST 39 H ALT 32 Alkaline Phosphatase 54 Total Protein 5.5 L Albumin 3.2 L Globulin 2.3 Albumin/Globulin Ratio 1.4 Triglycerides 56 Cholesterol 173 LDL Cholesterol, Calc 96 HDL Cholesterol 66 H [facility] Medical History Anterolisthesis of lumbosacral spine Elevated liver enzymes History of HPV infection Low back pain with right-sided sciatica Normal colonoscopy Osteoporosis Spinal stenosis Varicose vein of leg Welcome to Medicare preventive visit Surgical History History of open reduction and internal fixation (ORIF) procedure History of tonsillectomy and adenoidectomy Hx of abdominoplasty Hx of breast augmentation Hx of cosmetic surgery Social History household members: family Smoking Status: Never smoker alcohol intake: former Assessment & Plan Post-op Postoperative Procedures: Procedures Operation Date: 11/18/21 07:45 Actual Procedure Side Surgeon p L4-5, L5-S1 TLIF w. posterior instrumentation -Robot Not Applicable Gregory Pardo MD Postoperative day: 2 Postoperative status: doing well and marginal pain control Postoperative status narrative: Stable status post L4-L5, L5-S1 posterior lateral and posterior interbody fusion Postoperative plan: routine post-op care Postoperative plan narrative: Mobilize with physical therapy, limit bending, lifting, twisting Multimodal pain management Disposition, likely home this afternoon if patient is safe for home environment Quality VTE Deep Vein Thrombosis/Pulmonary Embolism Present on Admission: No
[2021-11-20] MEDS: DOCUSATE 100 MG CAPSULE PO ×2 (08:14→19:43)
[2021-11-20] MEDS: MAGNESIUM HYDROXIDE 30 ML UDC PO (08:14)
[2021-11-20] MEDS: TRAMADOL 50 MG TABLET PO ×4 (08:14→22:23)
[2021-11-20] MEDS: ACETAMINOPHEN 325 MG TABLET 650 MG PO ×2 (08:16→14:22)
--- NOTE | 2021-11-20 10:15 | PT.IPTN ---
Current Diagnoses Hyperlipidemia, unspecified (11/18/21) Spondylolisthesis, lumbar region (11/18/21) Spinal stenosis, lumbar region with neurogenic claudication (11/18/21) Lumbago with sciatica, right side (11/18/21) Age-related osteoporosis without current pathological fracture (11/18/21) Abnormal levels of other serum enzymes (11/18/21) Surgery Performed Operation Date: 11/18/21 07:45 Actual Procedures p L4-5, L5-S1 TLIF w. posterior instrumentation -Robot(Not Applicable) - Gregory Pardo MD Physical Therapy Treatment Note M2 PT-IP Current Condition Start: 11/18/21 14:52 Freq: NEEDED Status: Active Protocol: Document 11/19/21 09:40 AB (Rec: 11/19/21 14:00 AB [id number]) Physical Therapy Current Condition Current Condition Evaluation Date 11/19/21 Treatment Diagnosis s/p L4-5, L5S1 TLIF; difficulty in wakiing Onset Date 11/18/21 M3 PT-IP Subjective Start: 11/18/21 14:52 Freq: NEEDED Status: Active Protocol: Document 11/20/21 10:15 AB (Rec: 11/20/21 12:22 AB [email or web address]) Subjective Physical Therapy Visit Type Type Treatment Note Visit Start Time 10:15 Visit Stop Time 10:55 Total Visit Minutes 40 Number of UPHOLSTERY ESTIMATOR Visits 0 Physical Therapy Visit Comments Patient Comments agreeable to do PT Therapy Pain Assessment Pain When Pain Assessed At Rest Pain Present Pain Present Pain Reported Location back Intensity 6 Scale Used Numeric (0 - 10) Pain Management Techniques Apply Cold,Distraction, Modification of Treatment,Re- positioning,Timing of Activity with Medications M4 PT-IP Mobility and Gait Start: 11/18/21 14:52 Freq: NEEDED Status: Active Protocol: Document 11/20/21 10:15 AB (Rec: 11/20/21 12:22 AB [email or web address]) PT-Bed Mobility Assessment Rolling Type of Rolling Log Rolling Level of Assist Standby Assistance Supine to Sit Supine to Sit Standby Assistance PT-Transfer Assessment Sit to and From Stand Sit to and from Stand Standby Assistance,1 Person Assistance,Use of Upper Extremities Equipment Transfer Assistive Device Gait Belt,Front Wheeled Walker Orthotic/Prosthetic Devices or Brace: No Transfers Transfer Destination Toilet Transfer Technique ambulated Transfer Ability Level of Assist Standby Assistance Comments Mobility Comments BP in supine: 92/45. completed supine to sit log roll SBA with increase time needed to complete task. no c /o dizziness. BP in sittin/52. pt requested to use the toilet and completed sit to stand SBA and ambulated to the toilet using FWW SBA . completed sit to stand from the toilet SBA and ambulated towards the sink using FWW SBA . able to maintain standing using FWW for support SBA while completing handwashing. pt ambulated to the chair using FWW SBA. BP checked: 109/53. pt ambulated in the hallway using FWW SBA ~ 125 ft. presents with slow deidra, decrease LE elevation and narrow base. educated pt on how to do stairs. pt completed up/down steps using B rails CGA. assisted pt back to room. ambulated from w/c to chair using FWW SBA. positioned on chair. call light and table placed within reach. Gait Assessment Gait Gait Assistance Required: Standby Assistance Distance (Feet) 125 Able to Maintain Weight Bearing Status Yes During Gait Assistive Devices Assistive Device Gait Belt,Front Wheeled Walker Orthotic/Prosthetic Devices or Brace: No Gait Deviations General Gait Pattern Decreased Stride Length, Decreased Feet Clearance Factors Limiting Gait Function Factors Limiting Gait Function Decreased Activity Tolerance, Decreased Strength,Limited Range of Motion,Pain,Poor Balance,Poor Safety Awareness Stair Climbing Assessment Evaluation Level of Assist On Stairs Contact Guard Assistance Devices Stair Climbing Assistive Devices Left Railing,Right Railing Technique/Endurance Stair Climbing Direction Ascend and Descend Stair Climbing Technique Step to Step Number of Steps Climbed 3 Stair Climbing Set # Repetitions (reps) 1 M5 PT-IP Objective Assessments Start: 11/18/21 14:52 Freq: NEEDED Status: Active Protocol: Document 11/19/21 09:40 AB (Rec: 11/19/21 14:00 AB [id number]) Orientation Orientation/Cognition Level of Alertness Alert Orientation Name,Place,Situation Language Function Ability No Deficits Noted Safety Awareness Decreased Safety Awareness Memory Description Short Term Impaired Comments needs constant cues to keep eyes open Gross Range of Motion Lower Extremity ROM Assessment Within Functional Limits Strength Lower Extremity Strength Hip 4-/5 Knee 4-/5 Coordination Assessment Gross Coordination Gross Coordination WNL Sensation Assessment Sensation Gross Sensation WNL Muscle Tone Muscle Tone WNL Yes M6 PT-IP Treatment Start: 11/18/21 14:52 Freq: NEEDED Status: Active Protocol: Document 11/20/21 10:15 AB (Rec: 11/20/21 12:22 AB [id number]) Physical Therapy Treatment Education Education Provided Safety M7 PT-IP Assessment and Plan Start: 11/18/21 14:52 Freq: NEEDED Status: Active Protocol: Document 11/20/21 10:15 AB (Rec: 11/20/21 12:22 AB [id number]) PT Summary Assessment and Plan Potential Rehabilitation Potential Good Summary Impairments Pain,ROM,Strength,Balance, Sensation,Cognition,Bed Mobility,Transfers,Gait, Activity Tolerance Progress Towards Goals Progressing Toward Goals Assessment Summary pt progressing with mobility but continues to c/o increase pain. able to complete tasks SBA and stair climbing CGA. Caregiver training set up at 1pm today. pt plans to go home with her daughter to assist her. pt may go home when medically stable. Goals Bed Mobility Goal Minimal Assistance Transfer Goal Minimal Assistance,Front Wheeled Walker Gait Goal Minimal Assistance,Front Wheel Walker Gait Distance 50 Other Goals improve bed mobility, transfers, ambulation using FWW 150 ft SBA up/down 4 steps B rail ascending SBA Days to Meet Goals 10 Frequency of Treatment Frequency Of Treatment Twice a Day Treatment Plan Physical Therapy Treatment Plan Bed Mobility Training,Transfer Training,Gait Training, Therapeutic Exercise,Balance Retraining,Post Op Education, Discharge Planning,Hot or Cold Pack,Neuromuscular Re-ed, Coordination Retraining,Manual Therapy Other Recommendations and Next Treatment caregiver trainin/28 @ [employer] 1pm; stair climbing training Precautions Lumbar Precautions Log Roll,No Twisting,Limit Bending,Lifting Restriction of 10 lbs,Gait Belt above Incisional Area Recommendations To Nursing Amount of Assist Needed 1 Person Assist Discharge Recommendations PT Discharge Recommendations Home with 15/09 Assist Available,Home Health Transportation Needs at Discharge Private Vehicle,Wheelchair/ Cabulance
--- NOTE | 2021-11-20 12:02 | OT.IP.EVAL ---
Current Diagnoses Hyperlipidemia, unspecified (11/18/21) Spondylolisthesis, lumbar region (11/18/21) Spinal stenosis, lumbar region with neurogenic claudication (11/18/21) Lumbago with sciatica, right side (11/18/21) Age-related osteoporosis without current pathological fracture (11/18/21) Abnormal levels of other serum enzymes (11/18/21) Surgery Performed Operation Date: 11/18/21 07:45 Actual Procedures p L4-5, L5-S1 TLIF w. posterior instrumentation -Robot(Not Applicable) - Gregory Pardo MD Past Medical History (Last Reviewed 11/20/21 @ 07:14 by Tung Littlejohn PA-C) Anterolisthesis of lumbosacral spine Elevated liver enzymes History of HPV infection Low back pain with right-sided sciatica Normal colonoscopy Osteoporosis Spinal stenosis Varicose vein of leg Welcome to Medicare preventive visit Surgical History (Last Reviewed 11/20/21 @ 07:14 by Tung Littlejohn PA-C) History of open reduction and internal fixation (ORIF) procedure History of tonsillectomy and adenoidectomy Hx of abdominoplasty Hx of breast augmentation Hx of cosmetic surgery Occupational Therapy Inpatient Evaluation/Re-Eval M1 PT/OT-IP Prior Functional Status Start: 11/18/21 14:52 Freq: NEEDED Status: Active Protocol: Document 11/20/21 11:23 [facility] (Rec: 11/20/21 12:27 [facility] [id number]) Medical Review Prior Functional Status Medical History Reviewed Yes Communication able to make needs known Mobility and Gait pt stated that she is independent with all mobilities without assistive device. Activities of Daily Living and IADL's Pt states needing increased time for ADl and IADL needs. Social History Household Members family Living Arrangements House Number of Stairs To Enter/Railing? 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 pt lives in [place] with her daughter, Josh, and grandbabyRojelio. Josh states she will be available and able to assist at discharge as long as pt's needs are relatively simple. Pt states has a female urinal and bidet at home to use. M2 OT-IP Current Condition Start: 11/20/21 12:08 Freq: Status: Active Protocol: Document 11/20/21 11:23 [facility] (Rec: 11/20/21 12:27 [facility] [id number]) Occupational Therapy Current Condition Current Condition Evaluation Date 11/20/21 Treatment Diagnosis S/P L4-5, L5-S1 TLIF Diagnosis Onset Date 11/18/21 Post Operative Precautions Lumbar Precautions Log Roll,No Twisting,Limit Bending,Lifting Restriction of 10 lbs,Gait Belt above Incisional Area M3 OT- IP Subjective and Pain Start: 11/20/21 12:08 Freq: Status: Active Protocol: Document 11/20/21 11:23 [facility] (Rec: 11/20/21 12:27 [facility] [id number]) OT- Subjective Occupational Therapy Visit Type Type Initial Evaluation Visit Start Time 11:23 Visit Stop Time 12:02 Total Visit Minutes 39 Occupational Therapy Visit Comments Patient Comments Pt wanting to shower. Patient/Caregiver Goals TO go home. OT Pain Assessment Pain When Pain Assessed At Rest Pain Present Pain Present Pain Reported Location back Intensity 5 Scale Used Numeric (0 - 10) M4 OT- IP ADL's Start: 11/20/21 12:08 Freq: Status: Active Protocol: Document 11/20/21 11:23 [facility] (Rec: 11/20/21 12:27 [facility] [id number]) OT [id number] Comments OT Self-Feeding Comments Pt states has no issues. OT ADL-Oral Care General Eval Oral Care Ability Independent Areas of Assistance Retrieving/Set-Up of Items OT ADL-Dressing General Eval Upper Body Dressing Ability Minimal Assistance Lower Body Dressing Ability Standby Assistance,Maximum Assistance Comments OT Dressing Comments Able to show pt and practice use of LB dressing equipment for needs. OT ADL-Toileting Comments OT Toileting Comments Pt able to simulate standing to wipe and able to reach appropriately. Pt has a female urinal and bidet at home to use as pt having to get up at night several times per pt. Also suggested may be helpful to use wet ones and possible or wear pads/brief at night. Pt not open to getting a BSC. OT ADL-Bathing Bathing Type Bathing Type Shower General Evaluation Bathing Ability Moderate Assistance Areas Needing Assistance Wash/Dry Back,Wash/Dry Lower Extremities Devices Bathing Equipment Hand Held Shower Sprayer, Shower Chair with Arms,Grab Bars Comments OT Bathing Comments Pt needing assist for her back and feet. Pt states her daughter will be able to assist her at home for showering needs. M5 OT- IP IADL's Start: 11/20/21 12:08 Freq: Status: Active Protocol: Document 11/20/21 11:23 [facility] (Rec: 11/20/21 12:27 [facility] [id number]) OT-Instrumental Activities of Daily Living Deficits IADL Deficits Identified Deficits Home Safety Awareness Awareness of Need for Assistance at Home Good Awareness Ability to Problem Solve Emergency Able to Problem Solve Situations Home Safety Comments Pt has supportive daughter to assist for her needs at home. Medication Management Medication Management Comments Pt has supportive daughter to assist for her needs at home. Money Management Money Management Comments Pt has supportive daughter to assist for her needs at home. Meal Preparation Meal Preparation Caregiver Provides Assist Steam Press Operator Steam Press Operator Caregiver Provides Assist M6 OT- IP Functional Cognition Start: 11/20/21 12:08 Freq: Status: Active Protocol: Document 11/20/21 11:23 [facility] (Rec: 11/20/21 12:27 [facility] [id number]) Cognitive Factors Limiting Selfcare Function Cognitive Ability Level of Alertness Alert Patient Orientation Name,Place,Situation Attention Span Ability Capable of Focused Attention, Capable of Sustained Attention Ability to Follow Commands Able to Follow One Step Commands Memory Description No Deficits Noted Safety Awareness No Deficits Noted Problem Solving Ability No deficits Noted Cognitive Comments Cognitive Assessment Comments Pt able to follow her back precautions with good safety for all ADl and mobility needs . OT- Vision and Hearing OT- Hearing Assessment OT- Hearing Assessment WFL OT- Vision Assessment Visual Acuity Glasses All The Time Visual Attentiveness WFL Occular Pursuits WFL M7 OT- IP Mobility and Balance Start: 11/20/21 12:08 Freq: Status: Active Protocol: Document 11/20/21 11:23 [facility] (Rec: 11/20/21 12:27 [facility] [id number]) OT-Transfer Assessment Sit to and From Stand Sit to and from Stand Standby Assistance Transfers Transfer Ability Standby Assistance,Contact Guard Assistance Technique Transfer Destination Chair,Shower Stall Transfer Technique Stand Step Pivot Devices Transfer Assistive Devices Gait Belt,Front Wheeled Walker Comments Mobility Comments SBA to come to stand and CGA when stepping over the threshold of the shower. OT- Balance Assessment Sitting Balance and Reactions Static Sitting Balance Ability Good Dynamic Sitting Balance Ability Good Standing Balance and Reactions Static Standing Balance Ability Good Dynamic Standing Balance Ability Fair M8 OT- IP Objective Assessments Start: 11/20/21 12:08 Freq: Status: Active Protocol: Document 11/20/21 11:23 [facility] (Rec: 11/20/21 12:27 [facility] [id number]) OT-Muscle Tone Assessment Muscle Tone WNL Yes M9 OT- IP Assessment and Plan Start: 11/20/21 12:08 Freq: Status: Active Protocol: Document 11/20/21 11:23 [facility] (Rec: 11/20/21 12:27 [facility] [id number]) OT Summary Assessment and Plan Potential Rehabilitation Potential Excellent Analytic Complexity at Evaluation Low Summary OT Impairments Pain,Balance,Functional Mobility,Dressing,Toileting, Bathing,Toilet Transfers, Shower Transfers Progress Towards Goals Progressing Toward Goals Assessment Summary Pt Low complexity and main barrier are pain, steps, and now needing one person assist for mobility and ADl needs. Pt 's daughter to be home to assist pt for her needs. Pt may benefit from LB dressing equipment and BSC/pads/brief for OT needs. Pt looking to go home with assist when medically stable. Goals Grooming Goal Independent Dressing Goal Independent Toileting Goal Independent Bathing Goal Minimal Assistance Toilet Transfer Goal Independent Shower Transfer Goal Independent Days to Meet Goals 5 Frequency of Treatment Frequency Of Treatment Once a Day Treatment Plan OT Treatment Plan ADL Training,Functional Mobility,Patient/Family Education,Discharge Planning Discharge Recommendations OT Discharge Recommendations Home with Assistance Home Equipment Needs bsc?, LB dressing equipment Transportation Needs at Discharge Private Vehicle
--- NOTE | 2021-11-20 13:39 | PT.IPTN ---
Current Diagnoses Hyperlipidemia, unspecified (11/18/21) Spondylolisthesis, lumbar region (11/18/21) Spinal stenosis, lumbar region with neurogenic claudication (11/18/21) Lumbago with sciatica, right side (11/18/21) Age-related osteoporosis without current pathological fracture (11/18/21) Abnormal levels of other serum enzymes (11/18/21) Surgery Performed Operation Date: 11/18/21 07:45 Actual Procedures p L4-5, L5-S1 TLIF w. posterior instrumentation -Robot(Not Applicable) - Gregory Pardo MD Physical Therapy Treatment Note M2 PT-IP Current Condition Start: 11/18/21 14:52 Freq: NEEDED Status: Active Protocol: Document 11/19/21 09:40 AB (Rec: 11/19/21 14:00 AB [id number]) Physical Therapy Current Condition Current Condition Evaluation Date 11/19/21 Treatment Diagnosis s/p L4-5, L5S1 TLIF; difficulty in wakiing Onset Date 11/18/21 M3 PT-IP Subjective Start: 11/18/21 14:52 Freq: NEEDED Status: Active Protocol: Document 11/20/21 13:09 [place] (Rec: 11/20/21 13:55 [place] [id number]) Subjective Physical Therapy Visit Type Type Treatment Note Visit Start Time 13:09 Visit Stop Time 13:39 Total Visit Minutes 30 Notes Daughter present for caregiver training Number of MARKSMANSHIP INSTRUCTOR Visits 1 Physical Therapy Visit Comments Patient Comments agreeable to do PT Therapy Pain Assessment Pain When Pain Assessed At Rest Pain Present Pain Present Pain Reported Location back Pain Management Techniques Re-positioning,Timing of Activity with Medications M4 PT-IP Mobility and Gait Start: 11/18/21 14:52 Freq: NEEDED Status: Active Protocol: Document 11/20/21 13:09 [place] (Rec: 11/20/21 13:55 [place] [id number]) PT-Bed Mobility Assessment Rolling Type of Rolling Log Rolling Level of Assist Standby Assistance Sit to Supine Sit to Supine Standby Assistance PT-Transfer Assessment Sit to and From Stand Sit to and from Stand Standby Assistance,1 Person Assistance,Use of Upper Extremities Equipment Transfer Assistive Device Gait Belt,Front Wheeled Walker Orthotic/Prosthetic Devices or Brace: No Transfers Transfer Destination Bed,Wheelchair Transfer Technique ambulated Transfer Ability Level of Assist Standby Assistance Comments Mobility Comments Pt in chair upon arrival w/ daughter in room. SBA for sit< >stand w/ FWW. Pt ambulated ~ 120 ft to practice stairs SBA w/ FWW and ascended/descended 3 steps w/ BHR and daughter providing CGA. Pt used w/c to transport back to room due to increased pain and fatigue. Returned to bed SBA. Good awareness and adherence to spinal precautions. Gait Assessment Gait Gait Assistance Required: Standby Assistance Distance (Feet) 125 Able to Maintain Weight Bearing Status Yes During Gait Assistive Devices Assistive Device Gait Belt,Front Wheeled Walker Orthotic/Prosthetic Devices or Brace: No Gait Deviations General Gait Pattern Decreased Stride Length, Decreased Feet Clearance Factors Limiting Gait Function Factors Limiting Gait Function Decreased Activity Tolerance, Decreased Strength,Limited Range of Motion,Pain,Poor Balance,Poor Safety Awareness Comments Gait Comments Slow deidra, proper use of FWW no LOB. Stair Climbing Assessment Evaluation Level of Assist On Stairs Contact Guard Assistance Devices Stair Climbing Assistive Devices Left Railing,Right Railing Technique/Endurance Stair Climbing Direction Ascend and Descend Stair Climbing Technique Step to Step Number of Steps Climbed 3 Stair Climbing Set # Repetitions (reps) 1 Comments Stair Climbing Comments Pt ascended/descended 3 steps w/ BHR step to pattern and CGA provided by her daughter. Pt and daughter feel safe to complete at home. PT-Balance Assessment Sitting Balance and Reactions Static Sitting Balance Ability Good Dynamic Sitting Balance Ability Good Standing Balance and Reactions Static Standing Balance Ability Good Dynamic Standing Balance Ability Good Device Used FWW M5 PT-IP Objective Assessments Start: 11/18/21 14:52 Freq: NEEDED Status: Active Protocol: Document 11/19/21 09:40 AB (Rec: 11/19/21 14:00 AB [id number]) Orientation Orientation/Cognition Level of Alertness Alert Orientation Name,Place,Situation Language Function Ability No Deficits Noted Safety Awareness Decreased Safety Awareness Memory Description Short Term Impaired Comments needs constant cues to keep eyes open Gross Range of Motion Lower Extremity ROM Assessment Within Functional Limits Strength Lower Extremity Strength Hip 4-/5 Knee 4-/5 Coordination Assessment Gross Coordination Gross Coordination WNL Sensation Assessment Sensation Gross Sensation WNL Muscle Tone Muscle Tone WNL Yes M6 PT-IP Treatment Start: 11/18/21 14:52 Freq: NEEDED Status: Active Protocol: Document 11/20/21 13:09 [place] (Rec: 11/20/21 13:55 [place] [id number]) Physical Therapy Treatment Exercises Exercises Ankle Pumps,Gluteal Sets,Quad Sets Education Education Provided Precautions,Safety Other Treatments Other Treatment Performed Completed caregiver training w / pts daughter. M7 PT-IP Assessment and Plan Start: 11/18/21 14:52 Freq: NEEDED Status: Active Protocol: Document 11/20/21 13:09 [place] (Rec: 11/20/21 13:55 KS [id number]) PT Summary Assessment and Plan Potential Rehabilitation Potential Good Summary Impairments Pain,ROM,Strength,Balance, Sensation,Cognition,Bed Mobility,Transfers,Gait, Activity Tolerance Progress Towards Goals Progressing Toward Goals Assessment Summary Pt SBA to CGA throughout treatment today. Able to ambulate ~125 ft w/ FWW and ascend/descend 3 stairs w/ BHR . Pt ambulates very slowly due to pain, however had no LOB. Completed caregiver training w / pts daughter who was able to provide all necessary assist and will be present 15/09. Pt will benefit from OPPT when appropriate to improve spinal and abdominal stability. Goals Bed Mobility Goal Minimal Assistance Transfer Goal Minimal Assistance,Front Wheeled Walker Gait Goal Minimal Assistance,Front Wheel Walker Gait Distance 50 Other Goals improve bed mobility, transfers, ambulation using FWW 150 ft SBA up/down 4 steps B rail ascending SBA Days to Meet Goals 10 Frequency of Treatment Frequency Of Treatment Twice a Day Treatment Plan Physical Therapy Treatment Plan Bed Mobility Training,Transfer Training,Gait Training, Therapeutic Exercise,Balance Retraining,Post Op Education, Discharge Planning,Hot or Cold Pack,Neuromuscular Re-ed, Coordination Retraining,Manual Therapy Precautions Lumbar Precautions Log Roll,No Twisting,Limit Bending,Lifting Restriction of 10 lbs,Gait Belt above Incisional Area Recommendations To Nursing Amount of Assist Needed 1 Person Assist Discharge Recommendations PT Discharge Recommendations Home with 15/09 Assist Available,Outpatient PT Transportation Needs at Discharge Private Vehicle
[2021-11-20] MEDS: SENNOSIDES 8.6 MG TABLET 17.2 MG PO (19:43)
[2021-11-21 03:00] VITALS: BP 98/47; PULSE 61; RESP 20; TEMP 36.3; O2SAT 96
[2021-11-21] MEDS: BISACODYL 10 MG SUPP PR (03:13)
--- NOTE | 2021-11-21 07:25 | P.DS_ITS ---
History of Present Illness History of Present Illness Date Patient Seen: 11/21/21 Time Patient Seen: 07:25 Chief complaint: Tlif Narrative: Patient is complaining of moderate low back pain this morning. Her main concern is her constipation. Her nurse states she does not want to ambulate in the hallways and has been ambulating in her room only. She also notes she has mild lightheadedness with sitting to standing. Her current pain regimen is controlling her pain well. Overall she is feeling good and would like to be discharged home today. Discharge Providers Provider Date of admission: 11/18/21 06:16 Discharge Date: 11/21/21 Primary care physician: Lopez Bhakta MD Consults: 11/18/21 12:46 Consult to Occupational Therapy Evaluate & Treat Comment: Physician Instructions: Evaluate and treat Consult to Physical Therapy Evaluate & Treat Comment: Physician Instructions: Evaluate and Treat Discharge provider: Bernadette Blount PA-C Summary Hospital Course Discharge Diagnosis: 1. L4-5, L5-S1 spondylolisthesis 2. L4-5, L5-S1 spinal stenosis with neurogenic claudication 3. Hypotension, mildly symptomatic Hospital Course: Operative Date/Time/Diagnoses Date of procedure: 11/18/21 Time of procedure: 07:40 Procedure & Clinicians Procedure: 1. L4-5, L5-S1 Postero-lateral and posterior interbody fusion 2. L4-5, L5-S1 interbody cage placement. 3. L4-5, L5-S1 decompressive laminectomy with bilateral facetecomies 4. L4-5, L5-S1 Posterior segmental instrumentation 5. [place] of bone marrow from iliac crest 6. Utilization of microsurgical technique and operating microscope 7. Utilization of robotic assisted navigation Same procedure as scheduled: Yes Indications: Patient has been having chronic back pain and worsening lumbar radiculopathy. Patient failed multiple conservative management with worsening pain weakness and numbness in her lower extremity.? Patient has been having difficulty performing activity of daily living.? After discussing risks benefits of treatment options, patient elected proceed with surgery. Surgeon: Gregory Pardo Spot Man: Tung Littlejohn Click Yes if Unassisted: No Anesthesia Type: General Operative Notes Closure Type: primary Specimen(s): none sent Prosthetic devices, grafts, tissues, transplants, or devices: Globus CREO MIS screws, Rise cages Applied: catheter Estimated Blood Loss (mL): 100 Blood products transfused: none Status at Discharge Cognitive/behavioral status at discharge: at baseline, oriented Functional status at discharge: uses cane/walker Overall status at discharge: patient is progressing back to baseline Exam Vital Signs (past 8 hours): - 11/21/21 03:00 Temperature 97.3 F L Pulse Rate 61 Respiratory Rate 20 Blood Pressure 98/47 L Pulse Oximetry 96 Oxygen Delivery Method Room Air Oxygen Flow Rate 0 Narrative Exam Narrative: Pleasant 66-year-old female, resting comfortably in bed, no acute distress. Dressing is clean, dry, intact. Bilateral lower extremity: Motor functions are grossly intact, sensation is grossly intact to light touch, calves are soft and nontender palpation. Objective Labs Result Diagrams: 11/19/21 06:40 11/19/21 06:40 [facility] Medical History Anterolisthesis of lumbosacral spine Elevated liver enzymes History of HPV infection Low back pain with right-sided sciatica Normal colonoscopy Osteoporosis Spinal stenosis Varicose vein of leg Welcome to Medicare preventive visit Surgical History History of open reduction and internal fixation (ORIF) procedure History of tonsillectomy and adenoidectomy Hx of abdominoplasty Hx of breast augmentation Hx of cosmetic surgery Social History household members: family Smoking Status: Never smoker alcohol intake: former Discharge Assessment & Plan Assessment and Plan Assessment: -stable status post L4-5, L5-S1 Postero-lateral and posterior interbody fusion -hypotension, mildly symptomatic Plan of Treatment: -mobilize with PT/OT. No bending, lifting, twisting x6 weeks. Weightbearing as tolerated with front wheel walker. -continue with multimodal pain management -encouraged ambulation for constipation. We will also use constipation med occasions. -in terms of hypotension, encouraged the patient to dangle her legs at the side of the bed before standing for 5 minutes. -disposition: Home today once cleared by PT/OT Discharge Plan Discharge Plan Patient Disposition: Home Discharge orders & Medications Prescriptions: New docusate sodium 100 mg Capsule 100 mg PO BID PRN (Reason: constipation) Qty: 30 0RF oxycodone 5 mg Tablet See Rx Instructions .ROUTE .COMPLEX PRN (Reason: Pain, Severe (7-10)) Qty: 30 0RF Rx Instructions: Take 1-2 tablets by mouth every 4 hours as needed for moderate to severe postoperative pain tramadol 50 mg Tablet 50 mg PO Q4HR PRN (Reason: pain) Qty: 42 0RF Continued (DME) compression stockings See Rx Instructions .Route .MEDSUPPLY Qty: 3 0RF Rx Instructions: Bilateral lower extremity compression stockings up to knee 10-15 mmHg. Duration 999 days. Indication: Varicose veins and swelling acetaminophen 325 mg Tablet 650 mg PO Q4H PRN (Reason: Pain) Follow up/Referrals: Lopez Bhakta MD [Primary Care Provider] - Gregory Pardo MD [Physician] - (10-14 days for postoperative visit) Diet/Activity/Treatments Diet: Diet as Tolerated Other treatments: Dressing/Wound care: -Keep dressing in place until postoperative follow-up office visit. -Okay to shower. Keep wound out of direct water stream. Can use PressNSeal plastic wrap to protect from shower stream. No soaking or submerging until all the scabs fall off (approximately 6 weeks). -Please call the office if dressing becomes wet, soiled, or saturated. Activities: -Limit bending, lifting, twisting x6 weeks. No deep bending (more than 90 degrees) or twisting at the waist. No lifting > 20 pounds. -Walk frequently. -Weight-bearing as tolerated. Use front wheeled walker, and progress to cane when safe. -Continue with home exercises as directed by your physical therapist. -Ice your incision as needed for pain/inflammation/swelling. Protect your skin with a folded pillowcase. -Incentive Spirometer (breathing device from hospital): 5-10xs every hour while awake for the first 1-2 weeks. Follow-up: -Follow-up with your surgeon or PA in the office in 10-14 days after surgery. -Follow-up with your surgeon 6 weeks postoperatively. Call the office if you have chest pain, shortness of breath, significant swelling that will not resolve with elevating, fever over 101?, significantly w orsening pain, or are concerned you might need to go to the Emergency Room. [facility]: [phone] Skin/Wound/Dressing Care Report to your healthcare provider any signs of infection, such as:: chills, fever, night sweats, unusual drainage and unusual redness Visit Report/Discharge Packet Instructions: DI for Prescription Opioid Use, DI for Transforaminal Lumbar Interbody Fusion Stand Alone Forms: Surgery Discharge Discharge Data Primary Care Provider: Lopez Bhakta Quality VTE Deep Vein Thrombosis/Pulmonary Embolism Present on Admission: No
[2021-11-21 08:00] VITALS: BP 109/48; PULSE 67; RESP 18; TEMP 36.3; O2SAT 98
[2021-11-21] MEDS: DOCUSATE 100 MG CAPSULE PO (08:19)
[2021-11-21] MEDS: TRAMADOL 50 MG TABLET PO ×2 (08:19→14:40)
[2021-11-21 09:10] LABS: Hematocrit 30.2 % (36-46); Hemoglobin 10.7 g/dL (12.0-16.0)
--- NOTE | 2021-11-21 09:33 | OT.IP.TRT ---
Current Diagnoses Hyperlipidemia, unspecified (11/18/21) Spondylolisthesis, lumbar region (11/18/21) Spinal stenosis, lumbar region with neurogenic claudication (11/18/21) Lumbago with sciatica, right side (11/18/21) Age-related osteoporosis without current pathological fracture (11/18/21) Abnormal levels of other serum enzymes (11/18/21) Surgery Performed Operation Date: 11/18/21 07:45 Actual Procedures p L4-5, L5-S1 TLIF w. posterior instrumentation -Robot(Not Applicable) - Gregory Pardo MD Occupational Therapy Treatment Note M2 OT-IP Current Condition Start: 11/20/21 12:08 Freq: Status: Active Protocol: Document 11/20/21 11:23 [facility] (Rec: 11/20/21 12:27 [facility] [id number]) Occupational Therapy Current Condition Current Condition Evaluation Date 11/20/21 Treatment Diagnosis S/P L4-5, L5-S1 TLIF Diagnosis Onset Date 11/18/21 Post Operative Precautions Lumbar Precautions Log Roll,No Twisting,Limit Bending,Lifting Restriction of 10 lbs,Gait Belt above Incisional Area M3 OT- IP Subjective and Pain Start: 11/20/21 12:08 Freq: Status: Active Protocol: Document 11/21/21 09:32 [facility] (Rec: 11/21/21 09:43 [facility] [id number]) OT- Subjective Occupational Therapy Visit Type Type Treatment Note Visit Start Time 09:09 Visit Stop Time 09:33 Total Visit Minutes 24 Occupational Therapy Visit Comments Patient Comments Pt sitting on the BSC when OT came to work with pt. Pt not hungry and did not eat. Pt requesting to have a protein drink and nurse notified. Patient/Caregiver Goals To go home. OT Pain Assessment Pain When Pain Assessed At Rest Pain Present Pain Present Pain Reported Location back Intensity 5 Scale Used Numeric (0 - 10) M4 OT- IP ADL's Start: 11/20/21 12:08 OT ADL-Toileting Comments OT Toileting Comments Pt able to squat and reach back to wipe appropriately while keeping the other hand in the middle of the FWW to assist for her balance. M5 OT- IP IADL's Start: 11/20/21 12:08 Freq: Status: Active Protocol: Document 11/20/21 11:23 [facility] (Rec: 11/20/21 12:27 [facility] [id number]) OT-Instrumental Activities of Daily Living Deficits IADL Deficits Identified Deficits Home Safety Awareness Awareness of Need for Assistance at Home Good Awareness Ability to Problem Solve Emergency Able to Problem Solve Situations Home Safety Comments Pt has supportive daughter to assist for her needs at home. Medication Management Medication Management Comments Pt has supportive daughter to assist for her needs at home. Money Management Money Management Comments Pt has supportive daughter to assist for her needs at home. Meal Preparation Meal Preparation Caregiver Provides Assist Seasoner Seasoner Caregiver Provides Assist M6 OT- IP Functional Cognition Start: 11/20/21 12:08 Freq: Status: Active Protocol: Document 11/21/21 09:32 [facility] (Rec: 11/21/21 09:43 [facility] [id number]) Cognitive Factors Limiting Selfcare Function Cognitive Comments Cognitive Assessment Comments No issues noted. M7 OT- IP Mobility and Balance Start: 11/20/21 12:08 Freq: Status: Active Protocol: Document 11/21/21 09:32 [facility] (Rec: 11/21/21 09:43 [facility] [id number]) OT- Bed Mobility Assessment Supine to Sit Supine to Sit Assist Standby Assistance Sit to Supine Sit to Supine Assist Standby Assistance OT-Transfer Assessment Sit to and From Stand Sit to and from Stand Standby Assistance Transfers Transfer Ability Standby Assistance Technique Transfer Destination Bed,Bedside Commode Transfer Technique Stand Step Pivot Devices Transfer Assistive Devices Gait Belt,Front Wheeled Walker Comments Mobility Comments SBA to stand able to transfer from the BSC to bed. CGA for gown management. OT- Balance Assessment Sitting Balance and Reactions Static Sitting Balance Ability Normal Dynamic Sitting Balance Ability Good Standing Balance and Reactions Static Standing Balance Ability Good Dynamic Standing Balance Ability Fair M8 OT- IP Objective Assessments Start: 11/20/21 12:08 Freq: Status: Active Protocol: Document 11/20/21 11:23 [facility] (Rec: 11/20/21 12:27 [facility] [id number]) OT-Muscle Tone Assessment Muscle Tone WNL Yes M9 OT- IP Assessment and Plan Start: 11/20/21 12:08 Freq: Status: Active Protocol: Document 11/21/21 09:32 [facility] (Rec: 11/21/21 09:43 [facility] [id number]) OT Summary Assessment and Plan Potential Rehabilitation Potential Excellent Analytic Complexity at Evaluation Low Summary OT Impairments Pain,Balance,Functional Mobility,Dressing,Toileting, Bathing,Toilet Transfers, Shower Transfers Progress Towards Goals Progressing Toward Goals Assessment Summary Pt still having lots of pain 5 /10 but moving very well with mostly with SBA with occasional CGA. Pt looking to home with her daughter when medically stable. Goals Grooming Goal Independent Dressing Goal Independent Toileting Goal Independent Bathing Goal Minimal Assistance Toilet Transfer Goal Independent Shower Transfer Goal Independent Days to Meet Goals 2 Frequency of Treatment Frequency Of Treatment Once a Day Treatment Plan OT Treatment Plan ADL Training,Functional Mobility,Patient/Family Education,Discharge Planning Discharge Recommendations OT Discharge Recommendations Home with Assistance Home Equipment Needs bsc?, LB dressing equipment Transportation Needs at Discharge Private Vehicle
--- NOTE | 2021-11-21 10:21 | PT-IP ANOTE ---
Attempted to see pt this AM, she refused PT due to fatigue. Has already been cleared for d/c home w/ daughter assisting.
[2021-11-21 12:00] VITALS: BP 96/47; PULSE 70; TEMP 36.3; O2SAT 95
--- NOTE | 2021-11-21 17:36 | PC.NURSE ---
Pt discharged at 1645, escorted off floor in wheelchair accompanied by hospital staff. IV removed and discharge teaching provided, including wound care, follow up appointments and instructions about new medications. All questions answered. Pt left the floor with all belongings.
== END 2021-11-21 17:40 | disposition home or self-care (01) | DRG 455 ==
PROVIDERS: Physician Assistant; Admitting Provider Orthopaedic Surgery Orthopaedic Surgery of the Spine; PCP Family Medicine; Referring Provider Family Medicine; Visit Provider Orthopaedic Surgery Orthopaedic Surgery of the Spine
PROC: 0SG00AJ Fusion of Lumbar Vertebral Joint with Interbody Fusion Device, Posterior Approach, Anterior Column, Open Approach (ICD-10-PCS; principal; 2021-11-18 07:45)
DX: M48.062 Spinal stenosis, lumbar region with neurogenic claudication (principal); M43.16 Spondylolisthesis, lumbar region; M43.17 Spondylolisthesis, lumbosacral region; M48.07 Spinal stenosis, lumbosacral region; I95.9 Hypotension, unspecified; K59.00 Constipation, unspecified; Z20.822 Contact with and (suspected) exposure to COVID-19
CPT/HCPCS: 36415; 72100; 76000; 80053; 80061; 85014; 85018; 85025; 87635; 97116; 97162; 97165; 97530; 97535; C9803; C1713; C9290; J0131; J0171; J0330; J0690; J1100; J1170; J2250; J2405; J2704; J3010

== ENCOUNTER → 2022-10-23 08:49 | Outpatient (CLI) | payer OTHER, SELFPAY ==
[2021-11-18 13:13] VITALS: BMI 22.4
[2022-10-23 10:22] LABS: Add Manual Diff / Slide Review NO; Basophils Absolute Auto 0 /uL (0-100); Basophils Percent Auto 0.5 % (0-2); Eosinophils Absolute Auto 100 /uL (0-450); Hematocrit 39.9 % (36-46); Hemoglobin 14.1 g/dL (12.0-16.0); Lymphocytes Absolute Auto 2300 /uL (1100-4500); Lymphocytes Percent Auto 42.2 % (25-40); Mean Corpuscular HGB Conc 35.3 % (30-36); Mean Corpuscular Hemoglobin 33.8 PG (26-34); Mean Corpuscular Volume 95.8 fL (80-100); Monocytes Absolute Auto 400 /uL (0-900); Neutrophils Absolute Auto 2600 /uL (1500-7000); Neutrophils Percent Auto 48.3 % (50-75); Platelet Count 230 X10^3/uL (150-400); Red Blood Cell Count 4.16 X10^6/uL (4.0-5.2); White Blood Cell Count 5.4 X10^3/uL (4.5-11.0)
--- NOTE | 2022-10-23 10:39 | DI.RAD.S_ITS ---
Bone Density Report Name: VELVET DRAKE Age: 67 Sex: Female Ethnicity: White Date of : 1955 Indication: postmenopausal osteoporosis; monitoring treatment; Referring Provider: JUAN C QUEZADA Study: Bone densitometry was performed. Exam Date: October 23, 2022 Accession number: [id number] Bone Density: Region BMD T-score Z-score Classification Femoral Neck (Left) 0.551 -2.7 -1.0 Osteoporosis Total Hip (Left) 0.629 -2.6 -1.2 Osteoporosis Femoral Neck (Right) 0.471 -3.4 -1.8 Osteoporosis Total Hip (Right) 0.566 -3.1 -1.7 Osteoporosis Total Hip Mean 0.597 -2.9 -1.5 Osteoporosis Total Forearm (Left) 0.389 -3.5 -1.8 Osteoporosis 1/3 Forearm (Left) 0.400 -4.9 -3.1 Osteoporosis UD Forearm (Left) 0.371 -1.2 0.1 Osteopenia World Health Organization criteria for BMD impression classify patients as: Normal (T-score at or above -1.0), Osteopenia (T-score between -1.0 and -2.5), or Osteoporosis (T-score at or below -2.5). 10-year Fracture Risk: FRAX not reported because: Some T-score for Spine Total or Hip Total or Femoral Neck at or below -2.5 Treated for osteoporosis Previous Exams: -- Region Exam Age BMD T-score BMD Change BMD Change Date g/cm2 vs Baseline vs Previous -- Total Hip(Left) 10/23/2022 67 0.629 -2.6 0.011 (1.7%)# 0.011 (1.7%)# 10/21/2021 66 0.618 -2.7 Total Hip(Right) 10/23/2022 67 0.566 -3.1 -0.015 (-2.5%)# -0.015 (-2.5%)# 10/21/2021 66 0.581 -3.0 -- *Denotes significance at 95% confidence level, LSC for Total Hip = 0.027 g/cm2 # Denotes dissimilar scan types or analysis methods Impression: The patient has osteoporosis, based on the Right Femoral Neck T-score. No significant bone loss was observed. Discussion: PATIENT UNDER TREATMENT WITH NO SIGNIFICANT BMD LOSS SINCE LAST EXAM. In an untreated patient, BMD typically declines with age. A lack of decline or gain is usually a sign that treatment is efficacious and fracture risk is reduced. It is important to ask patients whether they are taking their medications and to encourage continued and appropriate compliance with their osteoporosis therapies to reduce fracture risk. It is also important to review their risk factors and encourage appropriate calcium and vitamin D intakes, exercise, fall prevention and other lifestyle measures. Follow-Up: Consider a repeat BMD and Vertebral Fracture Assessment (VFA) exam in 2 years or sooner if medically necessary, to reassess this patient's status. Reported by: LEONARDO JAIN M.D. on 10/23/2022 11:12:00 AM.
[2022-10-23 10:41] LABS: HEMOLYSIS < 15 (0-50); Iron 158 ug/dL (37-170)
[2022-10-23 10:43] LABS: Alanine Aminotransferase 26 IU/L (<35); Albumin 4.4 g/dL (3.5-5.0); Albumin Globulin Ratio 1.6 (1.0-2.8); Alkaline Phosphatase 87 U/L (38-126); Aspartate Aminotransferase 29 IU/L (14-36); Bilirubin Total 0.5 mg/dL (0.2-1.3); Blood Urea Nitrogen 11 mg/dL (7-17); Calcium 8.9 mg/dL (8.4-10.2); Carbon Dioxide 30 mmol/L (22-32); Chloride 101 mmol/L (98-107); Cholesterol 265 mg/dL (140-199); Estimated Glomerular Filt Rate > 60 mL/min (>60); Globulin 2.8 g/dL (1.7-4.1); Glucose 85 mg/dL (80-110); HDL Cholesterol 87 mg/dL (40-60); HEMOLYSIS < 15 (0-50); LDL Cholesterol Calculated 162 mg/dL (<100); Potassium 4.3 mmol/L (3.4-5.1); Sodium 139 mmol/L (137-145); Total Protein 7.2 g/dL (6.3-8.2); Triglycerides 81 mg/dL (35-150)
[2022-10-23 10:53] LABS: Percent Iron Saturation 66 % (15-50); Total Iron Binding Capacity 241 ug/dL (265-497); Transferrin 188 mg/dL (206-381)
[2022-10-23 11:18] LABS: Ferritin 335 ng/mL (11-264)
--- NOTE | 2022-11-03 11:22 | PC.NURSE ---
Heme referral: This Rn called and spoke to pt. She wants to wait for oncology to get providers by the end of the year. Pt is on a call back list when we do get providers. Msg sent to Dr. Bhakta' clinic staff about this.
== END ==
PROVIDERS: PCP Family Medicine; Referring Provider Family Medicine; Visit Provider Family Medicine
DX: D50.9 Iron deficiency anemia, unspecified (principal); E78.2 Mixed hyperlipidemia; M81.0 Age-related osteoporosis without current pathological fracture; R74.8 Abnormal levels of other serum enzymes; Z78.0 Asymptomatic menopausal state
CPT/HCPCS: 36415; 77080; 77081; 80053; 80061; 82728; 83540; 83550; 85025

== ENCOUNTER → 2023-10-27 14:12 | Outpatient (CLI) | payer OTHER, SELFPAY ==
[2021-11-18 13:13] VITALS: BMI 22.4
--- NOTE | 2023-10-27 14:13 | DI.RAD.S_ITS ---
PROCEDURE: XR HIP W PEL IF DONE LT 2V INDICATIONS: left hip pain TECHNIQUE: 2 views of the hip were acquired. COMPARISON: None. FINDINGS: Bones: Lumbosacral fusion hardware. Mild right and clrq-op-empcintf left hip arthrosis. Subchondral lucencies are seen at the femoral head, probably geodes. Questionable nondisplaced lucency is seen at the left inferior acetabulum. Soft tissues: No suspicious calcifications IMPRESSION: Left greater right degenerative changes. Lucencies at the femoral head may represent degenerative geodes versus sequelae of prior erosion. Questionable nondisplaced lucency at the left inferior acetabulum. Cross-sectional imaging preferably MRI could further evaluate the above findings depending on clinical context. Dictated by: Yannick Medellin M.D. on 10/27/2023 at 17:13 Approved by: Yannick Medellin M.D. on 10/27/2023 at 17:15
== END ==
PROVIDERS: PCP Family Medicine; Referring Provider Family Medicine; Visit Provider Family Medicine
DX: M16.12 Unilateral primary osteoarthritis, left hip (principal); M25.552 Pain in left hip; G89.29 Other chronic pain; R79.89 Other specified abnormal findings of blood chemistry; Z98.1 Arthrodesis status
CPT/HCPCS: 73502

== ENCOUNTER → 2023-10-29 09:06 | Outpatient (CLI) | payer OTHER, SELFPAY ==
[2021-11-18 13:13] VITALS: BMI 22.4
[2023-10-29 09:54] LABS: Add Manual Diff / Slide Review NO; Basophils Absolute Auto 0 /uL (0-100); Basophils Percent Auto 0.4 % (0-2); Eosinophils Absolute Auto 100 /uL (0-450); Eosinophils Percent Auto 0.9 % (2-4); Hematocrit 40.9 % (36-46); Lymphocytes Absolute Auto 2300 /uL (1100-4500); Lymphocytes Percent Auto 41.8 % (25-40); Mean Corpuscular HGB Conc 34.3 % (30-36); Mean Corpuscular Hemoglobin 33.6 PG (26-34); Mean Corpuscular Volume 97.9 fL (80-100); Monocytes Absolute Auto 400 /uL (0-900); Monocytes Percent Auto 7.9 % (3-14); Neutrophils Absolute Auto 2700 /uL (1500-7000); Platelet Count 233 X10^3/uL (150-400); Red Blood Cell Count 4.18 X10^6/uL (4.0-5.2); Red Cell Distribution Width 12.8 % (11.6-14.8); White Blood Cell Count 5.6 X10^3/uL (4.5-11.0)
[2023-10-29 10:22] LABS: Alanine Aminotransferase 21 IU/L (<35); Albumin 4.4 g/dL (3.5-5.0); Albumin Globulin Ratio 1.9 (1.0-2.8); Alkaline Phosphatase 64 U/L (38-126); Aspartate Aminotransferase 33 IU/L (14-36); BUN Creatinine Ratio 24.2 (6-22); Bilirubin Total 0.6 mg/dL (0.2-1.3); Blood Urea Nitrogen 15 mg/dL (7-17); Calcium 9.1 mg/dL (8.4-10.2); Carbon Dioxide 29 mmol/L (22-32); Chloride 101 mmol/L (98-107); Cholesterol 250 mg/dL (140-199); Estimated Glomerular Filt Rate > 60 mL/min (>60); Globulin 2.3 g/dL (1.7-4.1); Glucose 91 mg/dL (80-110); HDL Cholesterol 98 mg/dL (40-60); HEMOLYSIS < 15 (0-50); LDL Cholesterol Calculated 139 mg/dL (<100); Potassium 4.1 mmol/L (3.4-5.1); Sodium 136 mmol/L (137-145); Total Protein 6.7 g/dL (6.3-8.2); Triglycerides 64 mg/dL (35-150)
[2023-10-29 16:08] LABS: Free T4, Direct Thyroxine 1.01 ng/dL (0.78-2.19)
== END ==
PROVIDERS: PCP Family Medicine; Referring Provider Family Medicine; Visit Provider Family Medicine
DX: R79.89 Other specified abnormal findings of blood chemistry (principal); R74.8 Abnormal levels of other serum enzymes; M25.552 Pain in left hip; G89.29 Other chronic pain
CPT/HCPCS: 36415; 80053; 80061; 84439; 84443; 85025

== ENCOUNTER → 2023-11-05 | Outpatient (CLI) | payer OTHER, SELFPAY ==
[2021-11-18 13:13] VITALS: BMI 22.4
--- NOTE | 2023-11-05 09:56 | DI.RAD.S_ITS ---
PROCEDURE: XR DEXA AXIAL SKELETON INDICATIONS: Osteoporosis COMPARISON: [facility], CR, XR DEXA AXIAL SKELETON, 10/23/2022, 11:01. FINDINGS: Lumbar Spine: Not performed Left Hip: Bone mineral density 0.638 g/cm2, T score -2.5, osteoporosis, change from previous 1.5%. Left Femoral Neck: Bone mineral density 0.567 g/cm2, T score -2.5, osteoporosis, change from previous 2.7%. Right Hip: Bone mineral density 0.446 g/cm2, T score -3.6, osteoporosis, change from previous-5.3%. Right Femoral Neck: Bone mineral density 0.572 g/cm2, T score -3.0, osteoporosis, change from previous 1.0%. Left Forearm: Bone mineral density 0.408 g/cm2, T score -4.8, osteoporosis, change from previous 1.9%. Fracture Risk Calculation (when applicable): 10-year fracture risk of a major osteoporotic fracture not applicable due to osteoporosis. (T score greater or equal to -1.0 to: NORMAL) (T score from -1.1 to -2.4: OSTEOPENIA) (T score less than or equal to -2.5: OSTEOPOROSIS) IMPRESSION: Dissimilar scan types precludes direct testicle comparison between the current and prior exams. The patient is diffusely osteoporotic. No significant interval change in bone mineral density compared to the prior exam. Follow-up in two years recommended. Follow-up guidelines as follows: Osteoporosis: Consider a repeat DEXA and Vertebral Fracture Assessment (VFA) exam in 2 years or sooner if medically necessary, to reassess this patient's status. Osteopenia: Consider a repeat DEXA in 2-3 years to reassess this patient's status, or if there is a new clinical indication. Normal: Consider a repeat DEXA in 5 years or sooner, or if there is a new clinical indication. All treatment decisions require clinical judgment and consideration of individual patient factors, including patient preferences, comorbidities, previous drug use, risk factors not captured in the FRAX model (e.g., frailty, falls, vitamin D deficiency, increased bone turnover, interval significant decline in bone density ) and possible under- or over-estimation of fracture risk by FRAX. In addition, the NOF Guide recommends that FDA-approved medical therapies be considered in postmenopausal women and men age >= 50 years with a: * Hip or vertebral (clinical or morphometric) fracture * T-score of <=-2.5 at the spine or hip * Ten-year fracture probability by FRAX of >= 3% for hip fracture or >=20% for major osteoporotic fracture. People with diagnosed cases of osteoporosis or at high risk for fracture should have regular bone mineral density tests. For patients eligible for Medicare, routine testing is allowed once every 2 years. The testing frequency can be increased to one year for patients who have rapidly progressing disease, those who are receiving or discontinuing medical therapy to restore bone mass, or have additional risk factors. Dictated by: Vianey Portillo M.D. on 11/05/2023 at 16:42 Approved by: Vianey Portillo M.D. on 11/05/2023 at 16:45
== END ==
LOC: RAD 09:56
PROVIDERS: PCP Family Medicine; Referring Provider Family Medicine; Visit Provider Family Medicine
DX: M81.0 Age-related osteoporosis without current pathological fracture (principal)
CPT/HCPCS: 77080; 77081

== ENCOUNTER → 2024-11-03 09:06 | Outpatient (CLI) | payer OTHER, SELFPAY ==
[2021-11-18 13:13] VITALS: BMI 22.4
== END ==
PROVIDERS: Family Provider Family Medicine; PCP Family Medicine; Referring Provider Family Medicine; Visit Provider Family Medicine
DX: Z12.11 Encounter for screening for malignant neoplasm of colon (principal)
CPT/HCPCS: 82274

== ENCOUNTER → 2024-11-07 10:16 | Outpatient (CLI) | payer OTHER, SELFPAY ==
[2021-11-18 13:13] VITALS: BMI 22.4
[2024-11-07 10:59] LABS: Add Manual Diff / Slide Review NO; Hematocrit 40.6 % (36-46); Hemoglobin 14.2 g/dL (12.0-16.0); Lymphocytes Absolute Auto 2000 /uL (1100-4500); Mean Corpuscular HGB Conc 34.9 % (30-36); Mean Corpuscular Hemoglobin 33.6 PG (26-34); Mean Corpuscular Volume 96.3 fL (80-100); Platelet Count 199 X10^3/uL (150-400)
[2024-11-07 11:53] LABS: HEMOLYSIS < 15 (0-50)
[2024-11-07 11:58] LABS: Alanine Aminotransferase 21 IU/L (<35); Albumin 4.4 g/dL (3.5-5.0); Albumin Globulin Ratio 1.8 (1.0-2.8); Alkaline Phosphatase 57 U/L (38-126); Blood Urea Nitrogen 15 mg/dL (7-17); Calcium 9.0 mg/dL (8.4-10.2); Carbon Dioxide 27 mmol/L (22-32); Chloride 99 mmol/L (98-107); Cholesterol 259 mg/dL (140-199); Estimated Glomerular Filt Rate > 60 mL/min (>60); Globulin 2.5 g/dL (1.7-4.1); Glucose 87 mg/dL (70-99); HDL Cholesterol 102 mg/dL (40-60); HEMOLYSIS 15 (0-50); Potassium 4.3 mmol/L (3.4-5.1); Sodium 133 mmol/L (137-145); Total Protein 6.9 g/dL (6.3-8.2); Triglycerides 77 mg/dL (35-150)
[2024-11-07 12:13] LABS: Total Iron Binding Capacity 196 ug/dL (265-497); Transferrin 173 mg/dL (206-381)
[2024-11-07 12:30] LABS: TSH w/ Reflex to FT4 1.69 uIU/mL (0.47-4.68)
[2024-11-07 12:33] LABS: Ferritin 386 ng/mL (11-264)
[2024-11-09 14:37] LABS: Iron 205 ug/dL (37-170)
[2024-11-09 14:38] LABS: Percent Iron Saturation 105 % (15-50)
== END ==
PROVIDERS: Family Provider Family Medicine; PCP Family Medicine; Referring Provider Family Medicine; Visit Provider Family Medicine
DX: R79.89 Other specified abnormal findings of blood chemistry (principal); E78.5 Hyperlipidemia, unspecified; M81.0 Age-related osteoporosis without current pathological fracture; R74.8 Abnormal levels of other serum enzymes; Z00.00 Encounter for general adult medical examination without abnormal findings; D50.9 Iron deficiency anemia, unspecified
CPT/HCPCS: 36415; 80053; 80061; 82728; 83540; 83550; 84443; 85025

== ENCOUNTER 2024-12-12 13:00 | Outpatient (RCR) | payer OTHER, SELFPAY ==
[2021-11-18 13:13] VITALS: BMI 22.4
--- NOTE | 2024-09-13 16:27 | PT.OIE ---
Current Diagnoses Other chronic pain (09/13/24) Pain in left hip (09/13/24) Radiculopathy, lumbar region (09/13/24) Past Medical History (Last Reviewed 11/21/21 @ 07:27 by Bernadette Blount PA-C) Anterolisthesis of lumbosacral spine Elevated liver enzymes History of HPV infection Low back pain with right-sided sciatica Normal colonoscopy Osteoporosis Spinal stenosis Varicose vein of leg Welcome to Medicare preventive visit Past Surgical History (Last Reviewed 11/21/21 @ 07:27 by Bernadette Blount PA-C) History of open reduction and internal fixation (ORIF) procedure History of tonsillectomy and adenoidectomy Hx of abdominoplasty Hx of breast augmentation Hx of cosmetic surgery Visit Care Team Role Provider Type Lopez Bhakta MD Attending Provider Physician Family Provider Primary Care Provider Referring Provider Specialty: Family Practice Address: [address] [place] [address] Email: [email or web address] Physical Therapy Initial Evaluation PT-OP-A Visit Information Start: 09/10/24 11:22 Freq: Status: Active Protocol: Document 09/13/24 14:35 LRN (Rec: 09/13/24 16:17 LRN Laptop) Out-Patient Physical Therapy Visit Information Visit Information Visit Type Initial Evaluation Visit Start Time 14:35 Visit Stop Time 15:24 Visit Number 1 Evaluation Information Evaluation Date 09/13/24 Precautions Precautions Surgery of R ankle plates and screws - 2013, Spine surgery 04/20/21 - L4-5, L5-S1 spondylolisthesis 2. L4-5, L5-S1 spinal stenosis with neurogenic claudication f/b L4-5, L5-S1 Postero-lateral and posterior interbody fusion-hypotension surgery. PT-OP-B Current Condition Start: 09/10/24 11:22 Freq: Status: Active Protocol: Document 09/13/24 14:35 LRN (Rec: 09/13/24 16:17 LRN Laptop) Current Condition History of Current Condition Onset Date 10/2023 Current Complaints Constant L hip pain that radiates into the groin, causing her to limp. History of Current Insidious onset of L hip pain that is getting worse. A Condition year ago was present when sleeping on a certain side, and now is a constant ache when sleeping on any side. Feeling the pain now. An ache on the L lateral border of the middle sacrum that radiates into the buttock, down the side and anterior of the thigh and into the groin. Pain sometimes in the posterior thigh and sometimes into the lower leg. Worsens with next day walking but walking relieves the pain. After sitting, upon standing the pain worsens. Prior Treatments and X-ray, CAT scan Tests Treatment Goals Patient/Caregiver Pt goals: Goals Reduce limping when first getting up from a chair after the first few steps 5 out of 10 times. With walking ~25 minutes on level ground, pain is less and less constant (ache). Able to sit on kitchen chair > 20 minutes (30-40 minutes). Personal Factors Other Personal Osteoporosis, Osteoarthritis. Factors That May Effect Therapy/ Recovery PT-OP-C Subjective Start: 09/10/24 11:22 Freq: Status: Active Protocol: Document 09/13/24 14:35 LRN (Rec: 09/13/24 16:17 LRN Laptop) Patient Questionnaires Lower Extremity Functional Scale LEFS Score 46 LEFS Impairment 40 to 59% Impaired (Score 32-47) OP-PT Pain Assessment Pain Assessment Grid Paper Pain Yes Assessment Grid Completed Location L hip Pain Location Posterior buttock -> thigh: posterior, lateral, Details anterior, & groin Intensity 6 Description Aching,Burning Frequency Constant Pain Alleviating Cold Factors back Pain Location L lateral sacrum radiating into the posterior buttock Details Intensity 6 Scale Used Numeric (0 - 10) Description Aching,Burning,Radiating Frequency Constant Pain Alleviating Cold Factors PT-OP-G Mobility & Gait Start: 09/10/24 11:22 Freq: Status: Active Protocol: Document 09/13/24 14:35 LRN (Rec: 09/13/24 16:17 LRN Laptop) OP Gait Assessment Comments Gait Comments Pt reports limping gait. PT-OP-J Posture/Palpation/Skin Start: 09/10/24 11:22 Freq: Status: Active Protocol: Document 09/13/24 14:35 LRN (Rec: 09/13/24 16:17 LRN Laptop) Posture Evaluation Position Standing Head/C-Spine Posture Forward Head L-Spine Posture Increased Lordosis Shoulder Posture (L) Elevated Weight Distribution Weight Shifted Right Comments Posture Comments R LE slightly ER'd, excessive lordosis at T12-L4. PT-OP-K Range of Motion Start: 09/10/24 11:22 Freq: Status: Active Protocol: Document 09/13/24 14:35 LRN (Rec: 09/13/24 16:17 LRN Laptop) Lumbar Spine Range of Motion Lumbar Spine Active Degrees Testing Position Standing Flexion 80 Extension 10 Rotation Left 20 Rotation Right 15 Lateral Flexion Left 10 Lateral Flexion 15 Right Hip Goniometric Range of Motion Hip Right Passive Testing Position Supine Straight Leg Raise 95 Extension 20 Abduction 27 Internal Rotation 45 External Rotation 55 Left Passive Testing Position Supine Straight Leg Raise 50 Extension 20 Abduction 17 Internal Rotation 10 External Rotation 20 PT-OP-L Special Tests Start: 09/10/24 11:22 Freq: Status: Active Protocol: Document 09/13/24 14:35 LRN (Rec: 09/13/24 16:17 LRN Laptop) Special Tests Lumbar Spine Special Tests Straight Leg Raise Test Results negative Comments LLE: 50 Deg's with hamstring tightness PT-OP-M Strength Start: 09/10/24 11:22 Freq: Status: Active Protocol: Document 09/13/24 14:35 LRN (Rec: 09/13/24 16:17 LRN Laptop) Trunk Strength Trunk Manual Muscle Testing Testing Position Supine Core Stabilization Pt is not able to stabilize her core with MMT of L LE. Hip Strength Hip Manual Muscle Testing Right External Rotation 5 Normal Internal Rotation 4 Good Comments Strength is 5/5 except extension not tested and as indicated above. Left Flexion (L2) 4 Good Abduction 4 Good Adduction 4 Good External Rotation 3 Fair Internal Rotation 4 Good Comments Strength is 5/5 except extension not tested and as indicated above. PT-OP-Q Treatments Start: 09/10/24 11:22 Freq: Status: Active Protocol: Document 09/13/24 14:35 LRN (Rec: 09/13/24 16:17 LRN Laptop) Therapeutic Activity Therapeutic Activity Transfer training Name Supine > Sit log roll transfer training Reps/Minutes 4' Comments Pt needed physical and verbal cuing. Self-Care/Home Management Treatment Education Other Education Discussed results of evaluation, extensive discussion of goals, treatment, and plan of care (POC) with pt; pt agreeable to evaluation, goals, treatment and POC. Activities Self-Care/Home I/S pt to transfer in/out of bed as taught s/p lumbar Management surgery. Activities PT-OP-T Assessment and Plan Start: 09/10/24 11:22 Freq: Status: Active Protocol: Document 09/13/24 14:35 LRN (Rec: 09/13/24 16:17 LRN Laptop) Physical Therapy Assessment Rehab Potential Rehabilitation Good Potential Evaluation Complexity Number of Personal 1-2 Factors/ Comorbidities Number of Body 4 or More Systems Impaired Clinical Evolving Presentation at Evaluation Impairments Impairments Activity Tolerance,Pain,Posture,ROM,Soft Tissue Mobility,Strength,Transfers Goals Three Impairment Decreased ability to walk for exercise due to pain. Short Term Goal (STG Pt will be educated in pain mgmt and proper standing/ ) sitting posture. STG Duration 10/27/24 Half-Way Goal (LTG) With walking ~25 minutes on level ground, pain is less and less constant (ache). LTG Duration 12/08/24 Two Impairment LBP, L hip pain radiating into the thigh lateral, anterior, sometimes stage rigger Short Term Goal (STG Pt able to sit on kitchen chair > 20 minutes (30-40 ) minutes). STG Duration 10/27/24 Half-Way Goal (LTG) Reduce limping when first getting up from a chair after the first few steps 5 out of 10 times. LTG Duration 12/08/24 One Impairment Lacks appropriate self care HEP Short Term Goal (STG Pt will be educated in proper log roll transfer and ) body mechanics for ADLs. 09/13/24: Pt educated in log roll transfer off of plinth. STG Duration 10/27/24 progressed 09/13/24 Certified Physician'S Assistant Goal (LTG) Reduce limping when first getting up from a chair after the first few steps 5 out of 10 times. With walking ~25 minutes on level ground, pain is less and less constant (ache). Able to sit on kitchen chair > 20 minutes (30-40 minutes). LTG Duration 12/08/24 Assessment Summary Assessment Pt is a 69 yo female who presents with LBP radiating into the L hip and thigh (lateral/anterior/groin, sometimes posterior) with postural change of lordosis of the lower thoracic and lumbar spine, greater weightbearing on RLE (due to L L pain) and decreased L hip mobility and hip/core strength. The pt's PSLR is L 50 deg's with hamstring tightness and R 90 deg's; pain in region of L1, L2 nerve roots (?kidney). It is expected that the pt's rehabilitation will be extended due to her co-morbidities the chronicity of her condition. The pt will benefit from skilled physical therapy to work towards achieving the above stated goals. Physical Therapy Plan Frequency and Duration Frequency of 2x/Week Treatment Duration of 12 treatment (weeks) Plan of Care Start 09/13/24 Date Plan of Care End 12/08/24 Date Therapeutic Interventions Therapeutic Gait Training,Home Exercise Program,Manual Therapy, Interventions Neuromuscular Re-education,Self-Care/Home Management, Soft Tissue Mobilization,Therapeutic Activities, Therapeutic Exercises Modalities Cold Pack/Ice Massage,Electric Stimulation,Hot Packs, Ultrasound Next Visit Focus/Plan Next Note Type Treatment Note Next Visit Plan Next: (Note: pt Osteoporosis) Assess gait, stair amb, OBED posture, sensation, DTRs, LE neural glides, strength L knee/ankle, start L hip stretches. Ther Ex: L hip HEP: ROM and strengthening POC: L L1-L2, L4 neural pain rehab. Improve posture/ Neuromuscular Reeducation, Therapeutic Ex ( strengthening/ROM), Therapeutic Activity (transfer training), manual therapy (STM/JMT), Gait & Balance training, Pt Education (HEP, Edema and pain mgmt).
--- NOTE | 2024-09-13 16:27 | PT.OPPOC ---
Physical, Occupational & Speech Therapy At [facility] Current Diagnoses Other chronic pain (09/13/24) Pain in left hip (09/13/24) Radiculopathy, lumbar region (09/13/24) Visit Care Team Role Provider Type Lopez Bhakta MD Attending Provider Physician Family Provider Primary Care Provider Referring Provider Specialty: Family Practice Address: [address] [place] [address], [facility] Email: [email or web address] Plan Of Care PT-OP-B Current Condition Start: 09/10/24 11:22 Freq: Status: Active Protocol: Document 09/13/24 14:35 LRN (Rec: 09/13/24 16:17 LRN Laptop) Current Condition History of Current Condition Onset Date 10/2023 Current Complaints Constant L hip pain that radiates into the groin, causing her to limp. History of Current Insidious onset of L hip pain that is getting worse. A Condition year ago was present when sleeping on a certain side, and now is a constant ache when sleeping on any side. Feeling the pain now. An ache on the L lateral border of the middle sacrum that radiates into the buttock, down the side and anterior of the thigh and into the groin. Pain sometimes in the posterior thigh and sometimes into the lower leg. Worsens with next day walking but walking relieves the pain. After sitting, upon standing the pain worsens. Prior Treatments and X-ray, CAT scan Tests Treatment Goals Patient/Caregiver Pt goals: Goals Reduce limping when first getting up from a chair after the first few steps 5 out of 10 times. With walking ~25 minutes on level ground, pain is less and less constant (ache). Able to sit on kitchen chair > 20 minutes (30-40 minutes). Personal Factors Other Personal Osteoporosis, Osteoarthritis. Factors That May Effect Therapy/ Recovery PT-OP-T Assessment and Plan Start: 09/10/24 11:22 Freq: Status: Active Protocol: Document 09/13/24 14:35 LRN (Rec: 09/13/24 16:17 LRN Laptop) Physical Therapy Assessment Rehab Potential Rehabilitation Good Potential Evaluation Complexity Number of Personal 1-2 Factors/ Comorbidities Number of Body 4 or More Systems Impaired Clinical Evolving Presentation at Evaluation Impairments Impairments Activity Tolerance,Pain,Posture,ROM,Soft Tissue Mobility,Strength,Transfers Goals Three Impairment Decreased ability to walk for exercise due to pain. Short Term Goal (STG Pt will be educated in pain mgmt and proper standing/ ) sitting posture. STG Duration 10/27/24 Jar Filler Goal (LTG) With walking ~25 minutes on level ground, pain is less and less constant (ache). LTG Duration 12/08/24 Two Impairment LBP, L hip pain radiating into the thigh lateral, anterior, sometimes field software engineer Short Term Goal (STG Pt able to sit on kitchen chair > 20 minutes (30-40 ) minutes). STG Duration 10/27/24 Jar Filler Goal (LTG) Reduce limping when first getting up from a chair after the first few steps 5 out of 10 times. LTG Duration 12/08/24 One Impairment Lacks appropriate self care HEP Short Term Goal (STG Pt will be educated in proper log roll transfer and ) body mechanics for ADLs. 09/13/24: Pt educated in log roll transfer off of plinth. STG Duration 10/27/24 progressed 09/13/24 Jar Filler Goal (LTG) Reduce limping when first getting up from a chair after the first few steps 5 out of 10 times. With walking ~25 minutes on level ground, pain is less and less constant (ache). Able to sit on kitchen chair > 20 minutes (30-40 minutes). LTG Duration 12/08/24 Assessment Summary Assessment Pt is a 69 yo female who presents with LBP radiating into the L hip and thigh (lateral/anterior/groin, sometimes posterior) with postural change of lordosis of the lower thoracic and lumbar spine, greater weightbearing on RLE (due to L L pain) and decreased L hip mobility and hip/core strength. The pt's PSLR is L 50 deg's with hamstring tightness and R 90 deg's; pain in region of L1, L2 nerve roots (?kidney). It is expected that the pt's rehabilitation will be extended due to her co-morbidities the chronicity of her condition. The pt will benefit from skilled physical therapy to work towards achieving the above stated goals. Physical Therapy Plan Frequency and Duration Frequency of 2x/Week Treatment Duration of 12 treatment (weeks) Plan of Care Start 09/13/24 Date Plan of Care End 12/08/24 Date Therapeutic Interventions Therapeutic Gait Training,Home Exercise Program,Manual Therapy, Interventions Neuromuscular Re-education,Self-Care/Home Management, Soft Tissue Mobilization,Therapeutic Activities, Therapeutic Exercises Modalities Cold Pack/Ice Massage,Electric Stimulation,Hot Packs, Ultrasound Next Visit Focus/Plan Next Note Type Treatment Note Next Visit Plan Next: (Note: pt Osteoporosis) Assess gait, stair amb, OBED posture, sensation, DTRs, LE neural glides, strength L knee/ankle, start L hip stretches. Ther Ex: L hip HEP: ROM and strengthening POC: L L1-L2, L4 neural pain rehab. Improve posture/ Neuromuscular Reeducation, Therapeutic Ex ( strengthening/ROM), Therapeutic Activity (transfer training), manual therapy (STM/JMT), Gait & Balance training, Pt Education (HEP, Edema and pain mgmt). Plan of Care Dates Plan of Care Start Date 09/13/24 Plan of Care End Date 12/08/24 Electronically Signed by: Laurel Guy, PT 09/13/24 [id number] If you are in agreement with this Plan of Care, please return a signed and dated copy. I have reviewed this Plan of Care and certify that the skilled therapy services above are required to meet the patient?s needs. Physician Signature Date Printed Name and Credentials Clinical Instructor Signature Printed Name and Credentials
--- NOTE | 2024-09-20 15:33 | PT.OTN ---
Current Diagnoses Other chronic pain (09/20/24) Pain in left hip (09/20/24) Radiculopathy, lumbar region (09/20/24) Physical Therapy Treatment Note PT-OP-A Visit Information Start: 09/10/24 11:22 Freq: Status: Active Protocol: Document 09/20/24 14:41 LRN (Rec: 09/20/24 15:28 LRN Laptop) Out-Patient Physical Therapy Visit Information Visit Information Visit Type Treatment Note Visit Start Time 14:41 Visit Stop Time 15:16 Visit Number 2 Evaluation Information Evaluation Date 09/13/24 Precautions Precautions Surgery of R ankle plates and screws - 2013, Spine surgery 04/20/21 - L4-5, L5-S1 spondylolisthesis 2. L4-5, L5-S1 spinal stenosis with neurogenic claudication f/b L4-5, L5-S1 Postero-lateral and posterior interbody fusion-hypotension surgery. PT-OP-B Current Condition Start: 09/10/24 11:22 Freq: Status: Active Protocol: Document 09/13/24 14:35 LRN (Rec: 09/13/24 16:17 LRN Laptop) Current Condition History of Current Condition Onset Date 10/2023 Current Complaints Constant L hip pain that radiates into the groin, causing her to limp. History of Current Insidious onset of L hip pain that is getting worse. A Condition year ago was present when sleeping on a certain side, and now is a constant ache when sleeping on any side. Feeling the pain now. An ache on the L lateral border of the middle sacrum that radiates into the buttock, down the side and anterior of the thigh and into the groin. Pain sometimes in the posterior thigh and sometimes into the lower leg. Worsens with next day walking but walking relieves the pain. After sitting, upon standing the pain worsens. Prior Treatments and X-ray, CAT scan Tests Treatment Goals Patient/Caregiver Pt goals: Goals Reduce limping when first getting up from a chair after the first few steps 5 out of 10 times. With walking ~25 minutes on level ground, pain is less and less constant (ache). Able to sit on kitchen chair > 20 minutes (30-40 minutes). Personal Factors Other Personal Osteoporosis, Osteoarthritis. Factors That May Effect Therapy/ Recovery PT-OP-C Subjective Start: 09/10/24 11:22 Freq: Status: Active Protocol: Document 09/20/24 14:41 LRN (Rec: 09/20/24 15:28 LRN Laptop) OP-PT Subjective Patient Comments Patient Comments No changes. PT-OP-G Mobility & Gait Start: 09/10/24 11:22 Freq: Status: Active Protocol: Document 09/13/24 14:35 LRN (Rec: 09/13/24 16:17 LRN Laptop) OP Gait Assessment Comments Gait Comments Pt reports limping gait. PT-OP-J Posture/Palpation/Skin Start: 09/10/24 11:22 Freq: Status: Active Protocol: Document 09/13/24 14:35 LRN (Rec: 09/13/24 16:17 LRN Laptop) Posture Evaluation Position Standing Head/C-Spine Posture Forward Head L-Spine Posture Increased Lordosis Shoulder Posture (L) Elevated Weight Distribution Weight Shifted Right Comments Posture Comments R LE slightly ER'd, excessive lordosis at T12-L4. PT-OP-K Range of Motion Start: 09/10/24 11:22 Freq: Status: Active Protocol: Document 09/13/24 14:35 LRN (Rec: 09/13/24 16:17 LRN Laptop) Lumbar Spine Range of Motion Lumbar Spine Active Degrees Testing Position Standing Flexion 80 Extension 10 Rotation Left 20 Rotation Right 15 Lateral Flexion Left 10 Lateral Flexion 15 Right Hip Goniometric Range of Motion Hip Right Passive Testing Position Supine Straight Leg Raise 95 Extension 20 Abduction 27 Internal Rotation 45 External Rotation 55 Left Passive Testing Position Supine Straight Leg Raise 50 Extension 20 Abduction 17 Internal Rotation 10 External Rotation 20 PT-OP-L Special Tests Start: 09/10/24 11:22 Freq: Status: Active Protocol: Document 09/13/24 14:35 LRN (Rec: 09/13/24 16:17 LRN Laptop) Special Tests Lumbar Spine Special Tests Straight Leg Raise Test Results negative Comments LLE: 50 Deg's with hamstring tightness PT-OP-M Strength Start: 09/10/24 11:22 Freq: Status: Active Protocol: Document 09/13/24 14:35 LRN (Rec: 09/13/24 16:17 LRN Laptop) Trunk Strength Trunk Manual Muscle Testing Testing Position Supine Core Stabilization Pt is not able to stabilize her core with MMT of L LE. Hip Strength Hip Manual Muscle Testing Right External Rotation 5 Normal Internal Rotation 4 Good Comments Strength is 5/5 except extension not tested and as indicated above. Left Flexion (L2) 4 Good Abduction 4 Good Adduction 4 Good External Rotation 3 Fair Internal Rotation 4 Good Comments Strength is 5/5 except extension not tested and as indicated above. PT-OP-Q Treatments Start: 09/10/24 11:22 Freq: Status: Active Protocol: Document 09/20/24 14:41 LRN (Rec: 09/20/24 15:28 LRN Laptop) Therapeutic Exercises Supine Exercises Iliopsoas stretch Supine Exercise Name HEP: Ilipsoas stretchIn Eren Test position Side bilateral Reps/Minutes 30SH x 2 each Comments Extra time to determine bebo & position for stretch Lateral Hip stretch Supine Exercise Name HEP: Lateral hip stretch Side bilateral Reps/Minutes 4' Comments Extra time to determine bebo & position for stretch Piriformis stretch Supine Exercise Name HEP: Cross L leg over the right, cued no inner groin pain (L) Side bilateral Reps/Minutes 5' Comments Extra time to determine bebo & position for stretch Hip ER stretch Supine Exercise Name HEP: FIg 4 in hooklie Side bilateral Reps/Minutes 30 SH x 2 Comments Extra time to determine bebo & position for stretch Therapeutic Activity Therapeutic Activity Transfer training Name Supine > Sit log roll transfer training Reps/Minutes 5' Comments Pt needed physical and verbal cuing, was able to perform correctly after training. Self-Care/Home Management Treatment Activities Self-Care/Home Issued & reviewed HEP: Hip stretch of Fig 4 (modified Management to hooklie position), L Lateral Hip Stretch, Activities Piriformis stretch (L leg crossed over R leg), Iliopsoas stretch (Eren Test position), & L LE neural glide. Issued & reviewed Handout: Transfers sit<>supine, I/S for sit<>stand. PT-OP-T Assessment and Plan Start: 09/10/24 11:22 Freq: Status: Active Protocol: Document 09/20/24 14:41 LRN (Rec: 09/20/24 15:28 LRN Laptop) Physical Therapy Assessment Goals Three Impairment Decreased ability to walk for exercise due to pain. Short Term Goal (STG Pt will be educated in pain mgmt and proper standing/ ) sitting posture. STG Duration 10/27/24 Escrow Secretary Goal (LTG) With walking ~25 minutes on level ground, pain is less and less constant (ache). LTG Duration 12/08/24 Two Impairment LBP, L hip pain radiating into the thigh lateral, anterior, sometimes cafe lead Short Term Goal (STG Pt able to sit on kitchen chair > 20 minutes (30-40 ) minutes). STG Duration 10/27/24 Assisted Goal (LTG) Reduce limping when first getting up from a chair after the first few steps 5 out of 10 times. LTG Duration 12/08/24 One Impairment Lacks appropriate self care HEP Short Term Goal (STG Pt will be educated in proper log roll transfer and ) body mechanics for ADLs. 09/13/24: Pt educated in log roll transfer off of plinth. : Handout issued: Transfers sit<>supine, I/S for sit<>stand. STG Duration 10/27/24 progressed 09/20/24 (need educ for ADLS) Assisted Goal (LTG) Reduce limping when first getting up from a chair after the first few steps 5 out of 10 times. With walking ~25 minutes on level ground, pain is less and less constant (ache). Able to sit on kitchen chair > 20 minutes (30-40 minutes). LTG Duration 12/08/24 Assessment Summary Assessment 69 yo female w/LBP radiating into the L hip and thigh ( lateral/anteior/groin, sometimes posterior), incr'd lordosis of lower T/S and L/S, WBing > RLE (due to LLE pain), decr'd L hip mob & hip core strength. Today, the pt was able to perform hip ex's although limited with L hip due to groin pain, and she shows good tolerance to LLE neural glide with what apears >er SLR moblity. Physical Therapy Plan Frequency and Duration Frequency of 2x/Week Treatment Duration of 12 treatment (weeks) Plan of Care Start 09/13/24 Date Plan of Care End 12/08/24 Date Next Visit Focus/Plan Next Note Type Treatment Note Next Visit Plan Next: (Note: pt Osteoporosis) Assess response to HEP hip stretches (L>R). Assess gait, stair amb, sensation, DTRs, LE neural glides, strength L knee/ ankle. Recheck PSLR & OBED posture. Ther Ex: L hip HEP of ROM and strengthening. Sacral mob w/ osteoporosis precaution. POC: L L1-L2, L4 neural pain rehab. Improve posture/ Neuromuscular Reeducation, Therapeutic Ex ( strengthening/ROM), Therapeutic Activity (transfer training), manual therapy (STM/JMT), Gait & Balance training, Pt Education (HEP, Edema and pain mgmt).
--- NOTE | 2024-09-22 14:39 | PT.OTN ---
Current Diagnoses Other chronic pain (09/22/24) Pain in left hip (09/22/24) Radiculopathy, lumbar region (09/22/24) Physical Therapy Treatment Note PT-OP-A Visit Information Start: 09/10/24 11:22 Freq: Status: Active Protocol: Document 09/22/24 13:54 SP (Rec: 09/22/24 14:39 SP [id number]) Out-Patient Physical Therapy Visit Information Visit Information Visit Type Treatment Note Visit Start Time 13:54 Visit Stop Time 14:39 Visit Number 3 Number of GRANTS DIRECTOR Visits 1 PT-OP-B Current Condition Start: 09/10/24 11:22 Freq: Status: Active Protocol: Document 09/13/24 14:35 LRN (Rec: 09/13/24 16:17 LRN Laptop) Current Condition History of Current Condition Onset Date 10/2023 Current Complaints Constant L hip pain that radiates into the groin, causing her to limp. History of Current Insidious onset of L hip pain that is getting worse. A Condition year ago was present when sleeping on a certain side, and now is a constant ache when sleeping on any side. Feeling the pain now. An ache on the L lateral border of the middle sacrum that radiates into the buttock, down the side and anterior of the thigh and into the groin. Pain sometimes in the posterior thigh and sometimes into the lower leg. Worsens with next day walking but walking relieves the pain. After sitting, upon standing the pain worsens. Prior Treatments and X-ray, CAT scan Tests Treatment Goals Patient/Caregiver Pt goals: Goals Reduce limping when first getting up from a chair after the first few steps 5 out of 10 times. With walking ~25 minutes on level ground, pain is less and less constant (ache). Able to sit on kitchen chair > 20 minutes (30-40 minutes). Personal Factors Other Personal Osteoporosis, Osteoarthritis. Factors That May Effect Therapy/ Recovery PT-OP-C Subjective Start: 09/10/24 11:22 Freq: Status: Active Protocol: Document 09/22/24 13:54 SP (Rec: 09/22/24 14:39 SP [id number]) OP-PT Subjective Patient Comments Patient Comments Pt reports doing well with stretches, only able to 2x/ day today and 1 yesterday due to busy lift activities. SHe has 3-4 stairs garage vs front PT-OP-G Mobility & Gait Start: 09/10/24 11:22 Freq: Status: Active Protocol: Document 09/13/24 14:35 LRN (Rec: 09/13/24 16:17 LRN Laptop) OP Gait Assessment Comments Gait Comments Pt reports limping gait. PT-OP-J Posture/Palpation/Skin Start: 09/10/24 11:22 Freq: Status: Active Protocol: Document 09/13/24 14:35 LRN (Rec: 09/13/24 16:17 LRN Laptop) Posture Evaluation Position Standing Head/C-Spine Posture Forward Head L-Spine Posture Increased Lordosis Shoulder Posture (L) Elevated Weight Distribution Weight Shifted Right Comments Posture Comments R LE slightly ER'd, excessive lordosis at T12-L4. PT-OP-K Range of Motion Start: 09/10/24 11:22 Freq: Status: Active Protocol: Document 09/13/24 14:35 LRN (Rec: 09/13/24 16:17 LRN Laptop) Lumbar Spine Range of Motion Lumbar Spine Active Degrees Testing Position Standing Flexion 80 Extension 10 Rotation Left 20 Rotation Right 15 Lateral Flexion Left 10 Lateral Flexion 15 Right Hip Goniometric Range of Motion Hip Right Passive Testing Position Supine Straight Leg Raise 95 Extension 20 Abduction 27 Internal Rotation 45 External Rotation 55 Left Passive Testing Position Supine Straight Leg Raise 50 Extension 20 Abduction 17 Internal Rotation 10 External Rotation 20 PT-OP-L Special Tests Start: 09/10/24 11:22 Freq: Status: Active Protocol: Document 09/13/24 14:35 LRN (Rec: 09/13/24 16:17 LRN Laptop) Special Tests Lumbar Spine Special Tests Straight Leg Raise Test Results negative Comments LLE: 50 Deg's with hamstring tightness PT-OP-M Strength Start: 09/10/24 11:22 Freq: Status: Active Protocol: Document 09/13/24 14:35 LRN (Rec: 09/13/24 16:17 LRN Laptop) Trunk Strength Trunk Manual Muscle Testing Testing Position Supine Core Stabilization Pt is not able to stabilize her core with MMT of L LE. Hip Strength Hip Manual Muscle Testing Right External Rotation 5 Normal Internal Rotation 4 Good Comments Strength is 5/5 except extension not tested and as indicated above. Left Flexion (L2) 4 Good Abduction 4 Good Adduction 4 Good External Rotation 3 Fair Internal Rotation 4 Good Comments Strength is 5/5 except extension not tested and as indicated above. PT-OP-Q Treatments Start: 09/10/24 11:22 Freq: Status: Active Protocol: Document 09/22/24 13:54 SP (Rec: 09/22/24 14:39 SP [id number]) Therapeutic Exercises Supine Exercises HS stretch Supine Exercise Name added to HEP with HO Side bilateral Equipment Used use towel posterior thigh Reps/Minutes 60 sec hold Comments occ cue for proper form and bebo position for stretch Adductor Stretch Supine Exercise Name added to HEP with HO Side bilateral Reps/Minutes 60 sec hold Comments occ cue for proper form and bebo position for stretch Lateral Hip stretch Supine Exercise Name HEP: Lateral hip stretch Side bilateral Reps/Minutes 60sec Comments occ cue for proper form and bebo position for stretchh Piriformis stretch Supine Exercise Name HEP: Cross L leg over the right, cued no inner groin pain (L) Side bilateral Reps/Minutes 60 sec hold Comments occ cue for proper form and bebo position for stretch Hip ER stretch Supine Exercise Name HEP: FIg 4 in hooklie Side bilateral Reps/Minutes 30 SH x 2 Comments occ cue for proper form and bebo position for stretch Other Exercises self STMs Other Exercise Name quad, HS, adductor, calf, ITB Equipment Used rolling pin seated and ball wall glut Comments good response Manual Therapy Treatment Consent Patient gave verbal Yes consent for manual treatment Soft Tissue Mobilization L hip Body Location quad, adductor, HS Comments good feedback response- manual and discussion self use rolling pin and ball wall Joint Mobilizations L hip mob Joint inferior, posterolateral and anteromedial with strap Comments good feedback response- gentle deep hip stretch Self-Care/Home Management Treatment Education Patient Education Home Exercise Program,Joint Protection,Pain Management, Safety Other Education Ed self STMs, written on HO with added HS and Adductor. Discussed anatomy and how tight hip musculature can affect mechanics of hip and why stretching selection at this time, perform can help comfort into standing/gait . PT-OP-T Assessment and Plan Start: 09/10/24 11:22 Freq: Status: Active Protocol: Document 09/22/24 13:54 SP (Rec: 09/22/24 14:39 SP [id number]) Physical Therapy Assessment Goals Three Impairment Decreased ability to walk for exercise due to pain. Short Term Goal (STG Pt will be educated in pain mgmt and proper standing/ ) sitting posture. STG Duration 10/27/24 Retirement Goal (LTG) With walking ~25 minutes on level ground, pain is less and less constant (ache). LTG Duration 12/08/24 Two Impairment LBP, L hip pain radiating into the thigh lateral, anterior, sometimes material spreader Short Term Goal (STG Pt able to sit on kitchen chair > 20 minutes (30-40 ) minutes). STG Duration 10/27/24 Retirement Goal (LTG) Reduce limping when first getting up from a chair after the first few steps 5 out of 10 times. LTG Duration 12/08/24 One Impairment Lacks appropriate self care HEP Short Term Goal (STG Pt will be educated in proper log roll transfer and ) body mechanics for ADLs. 09/13/24: Pt educated in log roll transfer off of plinth. 09/20/24: Handout issued: Transfers sit<>supine, I/S for sit<>stand. 09/22/24: improved for transfers utilizing log roll and UE support. STG Duration 10/27/24 progressed 09/22/24 (need educ for ADLS) Glass Cleaning Machine Tender Goal (LTG) Reduce limping when first getting up from a chair after the first few steps 5 out of 10 times. With walking ~25 minutes on level ground, pain is less and less constant (ache). Able to sit on kitchen chair > 20 minutes (30-40 minutes). 09/22/24: HEP: HO HS stretch supine and sitting, adductor stretch supine. Discussed anatomy and how tight hip musculature can affect mechanics of hip and why stretching selection at this time, perform can help comfort into standing/gait. LTG Duration 12/08/24 progression 09/22/24 Assessment Summary Assessment Pt good feedback response to manual STMs and L hip mobe improved hip comfort mobility end tx.Provided education and instruction on self STMs use ball wall and rolling pin thigh with good feedback response. Incorportated HS and adductor stretching today for added support and reported deminished discomfort felt at arrival. Physical Therapy Plan Frequency and Duration Frequency of 2x/Week Treatment Duration of 12 treatment (weeks) Plan of Care Start 09/13/24 Date Plan of Care End 12/08/24 Date Therapeutic Interventions Therapeutic Gait Training,Home Exercise Program,Manual Therapy, Interventions Neuromuscular Re-education,Self-Care/Home Management, Soft Tissue Mobilization,Therapeutic Activities, Therapeutic Exercises Modalities Cold Pack/Ice Massage,Electric Stimulation,Hot Packs, Ultrasound Next Visit Focus/Plan Next Note Type Treatment Note Next Visit Plan Next: (Note: pt Osteoporosis) Assess response to HEP hip stretches (L>R). Assess gait, stair amb, sensation, DTRs, LE neural glides, strength L knee/ ankle. Recheck PSLR & OBED posture. Ther Ex: L hip HEP of ROM and strengthening. Sacral mob w/ osteoporosis precaution. POC: L L1-L2, L4 neural pain rehab. Improve posture/ Neuromuscular Reeducation, Therapeutic Ex ( strengthening/ROM), Therapeutic Activity (transfer training), manual therapy (STM/JMT), Gait & Balance training, Pt Education (HEP, Edema and pain mgmt).
--- NOTE | 2024-09-27 11:35 | PT.OTN ---
Current Diagnoses Other chronic pain (09/27/24) Pain in left hip (09/27/24) Radiculopathy, lumbar region (09/27/24) Physical Therapy Treatment Note PT-OP-A Visit Information Start: 09/10/24 11:22 Freq: Status: Active Protocol: Document 09/27/24 10:53 SP (Rec: 09/27/24 12:21 SP [id number]) Out-Patient Physical Therapy Visit Information Visit Information Visit Type Treatment Note Visit Start Time 10:53 Visit Stop Time 11:35 Visit Number 4 (/ since Eval, PN due by 10/14/24) Number of STREET LIGHT CLEANER Visits 2 PT-OP-B Current Condition Start: 09/10/24 11:22 Freq: Status: Active Protocol: Document 09/13/24 14:35 LRN (Rec: 09/13/24 16:17 LRN Laptop) Current Condition History of Current Condition Onset Date 10/2023 Current Complaints Constant L hip pain that radiates into the groin, causing her to limp. History of Current Insidious onset of L hip pain that is getting worse. A Condition year ago was present when sleeping on a certain side, and now is a constant ache when sleeping on any side. Feeling the pain now. An ache on the L lateral border of the middle sacrum that radiates into the buttock, down the side and anterior of the thigh and into the groin. Pain sometimes in the posterior thigh and sometimes into the lower leg. Worsens with next day walking but walking relieves the pain. After sitting, upon standing the pain worsens. Prior Treatments and X-ray, CAT scan Tests Treatment Goals Patient/Caregiver Pt goals: Goals Reduce limping when first getting up from a chair after the first few steps 5 out of 10 times. With walking ~25 minutes on level ground, pain is less and less constant (ache). Able to sit on kitchen chair > 20 minutes (30-40 minutes). Personal Factors Other Personal Osteoporosis, Osteoarthritis. Factors That May Effect Therapy/ Recovery PT-OP-C Subjective Start: 09/10/24 11:22 Freq: Status: Active Protocol: Document 09/27/24 10:53 SP (Rec: 09/27/24 12:21 SP [id number]) OP-PT Subjective Patient Comments Patient Comments Pt reports walked [employer] full length with some little back and L hip pain after. She has been able to perform stretching HEP 2x/day, hasn't had time to increase to 3x/day per recommendation of PT. She has been having aching L hip sitting about 20 min needs to get up, is limited in static standing >10 min as well. PT-OP-G Mobility & Gait Start: 09/10/24 11:22 Freq: Status: Active Protocol: Document 09/13/24 14:35 LRN (Rec: 09/13/24 16:17 LRN Laptop) OP Gait Assessment Comments Gait Comments Pt reports limping gait. PT-OP-J Posture/Palpation/Skin Start: 09/10/24 11:22 Freq: Status: Active Protocol: Document 09/13/24 14:35 LRN (Rec: 09/13/24 16:17 LRN Laptop) Posture Evaluation Position Standing Head/C-Spine Posture Forward Head L-Spine Posture Increased Lordosis Shoulder Posture (L) Elevated Weight Distribution Weight Shifted Right Comments Posture Comments R LE slightly ER'd, excessive lordosis at T12-L4. PT-OP-K Range of Motion Start: 09/10/24 11:22 Freq: Status: Active Protocol: Document 09/13/24 14:35 LRN (Rec: 09/13/24 16:17 LRN Laptop) Lumbar Spine Range of Motion Lumbar Spine Active Degrees Testing Position Standing Flexion 80 Extension 10 Rotation Left 20 Rotation Right 15 Lateral Flexion Left 10 Lateral Flexion 15 Right Hip Goniometric Range of Motion Hip Right Passive Testing Position Supine Straight Leg Raise 95 Extension 20 Abduction 27 Internal Rotation 45 External Rotation 55 Left Passive Testing Position Supine Straight Leg Raise 50 Extension 20 Abduction 17 Internal Rotation 10 External Rotation 20 PT-OP-L Special Tests Start: 09/10/24 11:22 Freq: Status: Active Protocol: Document 09/13/24 14:35 LRN (Rec: 09/13/24 16:17 LRN Laptop) Special Tests Lumbar Spine Special Tests Straight Leg Raise Test Results negative Comments LLE: 50 Deg's with hamstring tightness PT-OP-M Strength Start: 09/10/24 11:22 Freq: Status: Active Protocol: Document 09/13/24 14:35 LRN (Rec: 09/13/24 16:17 LRN Laptop) Trunk Strength Trunk Manual Muscle Testing Testing Position Supine Core Stabilization Pt is not able to stabilize her core with MMT of L LE. Hip Strength Hip Manual Muscle Testing Right External Rotation 5 Normal Internal Rotation 4 Good Comments Strength is 5/5 except extension not tested and as indicated above. Left Flexion (L2) 4 Good Abduction 4 Good Adduction 4 Good External Rotation 3 Fair Internal Rotation 4 Good Comments Strength is 5/5 except extension not tested and as indicated above. PT-OP-Q Treatments Start: 09/10/24 11:22 Freq: Status: Active Protocol: Document 09/27/24 10:53 SP (Rec: 09/27/24 12:21 SP [id number]) Therapeutic Exercises Supine Exercises TA hip rolls (ER/IR) Supine Exercise Name Trialed in PT Side bilateral Equipment Used gluteal region over miracle balls Reps/Minutes susained pressure 20 sec then hip ER/IR 5 reps then removed balls Comments good feedback response less tightness in glut/hips HS stretch Supine Exercise Name verbal review, didn't get to performance today Adductor Stretch Supine Exercise Name verbal review, didn't get to performance today Iliopsoas stretch Supine Exercise Name REviewed HEP: Ilipsoas stretch- Eren Test position Side bilateral Equipment Used opp knee bent vs pulled toward chest Reps/Minutes 60 sec Comments R ok, L thigh rested on table due to quad very tight ( leg off hurt L knee) Lateral Hip stretch Supine Exercise Name REviewed HEP:Lateral hip stretch Side bilateral Equipment Used bent knee foot over opp LE- better stretch lateral hip Reps/Minutes 60sec Comments occ cue for proper form and bebo position for stretch Piriformis stretch Supine Exercise Name REviewed HEP: Cross L leg over the right, cued no inner groin pain (L) Side bilateral Reps/Minutes 60 sec hold Comments occ cue for proper form and bebo position for stretch Hip ER stretch Supine Exercise Name REviewed HEP: FIg 4 in hooklie Side bilateral Reps/Minutes 60 sec Comments occ cue for proper form and bebo position for stretch Other Exercises self STMs Other Exercise Name quad, HS, adductor, calf, ITB Side bilateral Equipment Used rolling pin seated verbal review again, hooklying miracle ball glut sustain Reps/Minutes 3 min total Comments sustained pressure gluteal region then added hip roll out- good response Manual Therapy Treatment Consent Patient gave verbal Yes consent for manual treatment Soft Tissue Mobilization L hip Body Location HS (STMs only), glut med & piriformis (STM and MWM hip IR/ER /c knee flex.) Mobilization Type Rolling,Sustained Pressure,Other Intensity/Depth PRone Body Position prone over pillows Comments STMs and MWM hip IR/ER with knee flexion bebo range- limited range ER more than IR- noted pelvic rock and hip flexor engagement ER more than IR- next tx will trial contract/relax for muscle inhibition to see if can gain (A)ROM. Joint Mobilizations L hip mob Joint hip ER with prox femur anterior glide Direction anteromedial with strap Grade II Body Position Hooklying Comments good feedback response- gentle deep hip stretch- MWM hip ER AROM feels good no pain at all & eliminated anterior L hip/groin pinch during piriformis and lat hip stretch (IR). Self-Care/Home Management Treatment Education Patient Education Home Exercise Program,Joint Protection,Pain Management, Safety Other Education Education and provided HOs for spinal alignment sit, stand, ADLs with HOs. Discussion review use CP (see goal- no HO). PT-OP-T Assessment and Plan Start: 09/10/24 11:22 Freq: Status: Active Protocol: Document 09/27/24 10:53 SP (Rec: 09/27/24 12:21 SP [id number]) Physical Therapy Assessment Goals Three Impairment Decreased ability to walk for exercise due to pain. Short Term Goal (STG Pt will be educated in pain mgmt and proper standing/ ) sitting posture. 09/27/24: ed CP for pain mgt with pain cycle cold/burning /numb, provided sit, sleeping, standing and ADL HOs. STG Duration 10/27/24 progressing 09/27/24 Gang Ripsaw Operator Goal (LTG) With walking ~25 minutes on level ground, pain is less and less constant (ache). LTG Duration 12/08/24 Two Impairment LBP, L hip pain radiating into the thigh lateral, anterior, sometimes slab stripper Short Term Goal (STG Pt able to sit on kitchen chair > 20 minutes (30-40 ) minutes). 09/27/24: did comment about kitchen chair discussed couch 20 min before need get up due to achiness in L hip. STG Duration 10/27/24 progressing 09/27/24 Intermediate Goal (LTG) Reduce limping when first getting up from a chair after the first few steps 5 out of 10 times. LTG Duration 12/08/24 One Impairment Lacks appropriate self care HEP Short Term Goal (STG Pt will be educated in proper log roll transfer and ) body mechanics for ADLs. 09/13/24: Pt educated in log roll transfer off of plinth. 09/20/24: Handout issued: Transfers sit<>supine, I/S for sit<>stand. 09/22/24: improved for transfers utilizing log roll and UE support. STG Duration 10/27/24 progressed 09/22/24 (need educ for ADLS) Gang Ripsaw Operator Goal (LTG) Reduce limping when first getting up from a chair after the first few steps 5 out of 10 times. With walking ~25 minutes on level ground, pain is less and less constant (ache). Able to sit on kitchen chair > 20 minutes (30-40 minutes). 09/22/24: HEP: HO HS stretch supine and sitting, adductor stretch supine. Discussed anatomy and how tight hip musculature can affect mechanics of hip and why stretching selection at this time, perform can help comfort into standing/gait. LTG Duration 12/08/24 progression 09/22/24 Assessment Summary Assessment 69 yo female w/LBP radiating into the L hip and thigh ( lateral/anteior/groin, sometimes posterior), had good feedback response to manual today, improved L hip flexor and quad mobility post manual and stretching modified Eren stretch (thigh support on table due to leg dangle off table hurt knee, good opp R knee flexion ) vs long leg press supported on table. Initiated gluteal region resting over miracle balls post manual then small range hip roll out/in with TA and HEALTH IT SPECIALIST cued awareness. Ed postural alignment sit/stand/ADLs with HOs. Pt has very tight L quad and B hip ER>IRs, will spend time next tx on this. Would benefit from initiating strengthening hips and core next tx. Physical Therapy Plan Frequency and Duration Frequency of 2x/Week Treatment Duration of 12 treatment (weeks) Plan of Care Start 09/13/24 Date Plan of Care End 12/08/24 Date Therapeutic Interventions Therapeutic Gait Training,Home Exercise Program,Manual Therapy, Interventions Neuromuscular Re-education,Self-Care/Home Management, Soft Tissue Mobilization,Therapeutic Activities, Therapeutic Exercises Modalities Cold Pack/Ice Massage,Electric Stimulation,Hot Packs, Ultrasound Next Visit Focus/Plan Next Note Type Treatment Note Next Visit Plan Next: (Note: pt Osteoporosis) Recheck L>R lat hip and hip flexor stretching. Add hip and core strengthening for support gait endurance. Ask if applying postural aligment to ADLs with HOs last tx. Assess gait, stair amb, sensation, DTRs, LE neural glides, strength L knee /ankle. Recheck PSLR & OBED posture. Ther Ex: L hip HEP of ROM and strengthening. Sacral mob w/ osteoporosis precaution. POC: L L1-L2, L4 neural pain rehab. Improve posture/ Neuromuscular Reeducation, Therapeutic Ex ( strengthening/ROM), Therapeutic Activity (transfer training), manual therapy (STM/JMT), Gait & Balance training, Pt Education (HEP, Edema and pain mgmt).
--- NOTE | 2024-09-29 12:18 | PT.OTN ---
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 History of Current Insidious onset of L hip pain that is getting worse. A Condition year ago was present when sleeping on a certain side, and now is a constant ache when sleeping on any side. Feeling the pain now. An ache on the L lateral border of the middle sacrum that radiates into the buttock, down the side and anterior of the thigh and into the groin. Pain sometimes in the posterior thigh and sometimes into the lower leg. Worsens with next day walking but walking relieves the pain. After sitting, upon standing the pain worsens. Prior Treatments and X-ray, CAT scan Tests Treatment Goals Patient/Caregiver Pt goals: Goals Reduce limping when first getting up from a chair after the first few steps 5 out of 10 times. With walking ~25 minutes on level ground, pain is less and less constant (ache). Able to sit on kitchen chair > 20 minutes (30-40 minutes). Personal Factors Other Personal Osteoporosis, Osteoarthritis. Factors That May Effect Therapy/ Recovery PT-OP-C Subjective Start: 09/10/24 11:22 Freq: Status: Active Protocol: Document 09/29/24 11:38 SP (Rec: 09/29/24 12:49 SP [id number]) OP-PT Subjective Patient Comments Patient Comments Pt reports felt ok after last tx and still so suprised how tight her anterior L leg is and maybe spend time how can improve this on own as well. She states doesn't understand how L leg got so tight and limits her flexibility that causes pain into anterior leg/groin. PT-OP-G Mobility & Gait Start: 09/10/24 11:22 Freq: Status: Active Protocol: Document 09/13/24 14:35 LRN (Rec: 09/13/24 16:17 LRN Laptop) OP Gait Assessment Comments Gait Comments Pt reports limping gait. PT-OP-J Posture/Palpation/Skin Start: 09/10/24 11:22 Freq: Status: Active Protocol: Document 09/13/24 14:35 LRN (Rec: 09/13/24 16:17 LRN Laptop) Posture Evaluation Position Standing Head/C-Spine Posture Forward Head L-Spine Posture Increased Lordosis Shoulder Posture (L) Elevated Weight Distribution Weight Shifted Right Comments Posture Comments R LE slightly ER'd, excessive lordosis at T12-L4. PT-OP-K Range of Motion Start: 09/10/24 11:22 Freq: Status: Active Protocol: Document 09/13/24 14:35 LRN (Rec: 09/13/24 16:17 LRN Laptop) Lumbar Spine Range of Motion Lumbar Spine Active Degrees Testing Position Standing Flexion 80 Extension 10 Rotation Left 20 Rotation Right 15 Lateral Flexion Left 10 Lateral Flexion 15 Right Hip Goniometric Range of Motion Hip Right Passive Testing Position Supine Straight Leg Raise 95 Extension 20 Abduction 27 Internal Rotation 45 External Rotation 55 Left Passive Testing Position Supine Straight Leg Raise 50 Extension 20 Abduction 17 Internal Rotation 10 External Rotation 20 PT-OP-L Special Tests Start: 09/10/24 11:22 Freq: Status: Active Protocol: Document 09/13/24 14:35 LRN (Rec: 09/13/24 16:17 LRN Laptop) Special Tests Lumbar Spine Special Tests Straight Leg Raise Test Results negative Comments LLE: 50 Deg's with hamstring tightness PT-OP-M Strength Start: 09/10/24 11:22 Freq: Status: Active Protocol: Document 09/13/24 14:35 LRN (Rec: 09/13/24 16:17 LRN Laptop) Trunk Strength Trunk Manual Muscle Testing Testing Position Supine Core Stabilization Pt is not able to stabilize her core with MMT of L LE. Hip Strength Hip Manual Muscle Testing Right External Rotation 5 Normal Internal Rotation 4 Good Comments Strength is 5/5 except extension not tested and as indicated above. Left Flexion (L2) 4 Good Abduction 4 Good Adduction 4 Good External Rotation 3 Fair Internal Rotation 4 Good Comments Strength is 5/5 except extension not tested and as indicated above. 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 LE extension Prone Exercise Name added to HEP with HO Side bilateral Resistance L>R tight Equipment Used 2 pillows under pelvis, head resting on arms Reps/Minutes 5 reps Comments cued gentle PPT to neutral with TA fac, neutral ankle, lift/unweight thigh Standing Exercises Hip flexor Stretch Standing Exercise lunge stance- added to HEP Name Side bilateral Resistance L>R Equipment Used BUEs on doorframe, allow back heel lift off floor Reps/Minutes 30 sec hold x2 each side Comments Cued gentle/light front of hip toward door, no low back arch Manual Therapy Treatment Consent Patient gave verbal Yes consent for manual treatment Soft Tissue Mobilization L hip Body Location L quad, TFL, Psoas, ITB Mobilization Type Instrument Assisted,Rolling,Sustained Pressure,Other Intensity/Depth hookying and prone Body Position Supine Comments STMs leg on wedge>table, off EOtable. Then prone MWM hip ER/IR then c/r with PA pressure prox femur with PROM. Joint Mobilizations L hip mob Joint hip ER with prox femur anterior glide Direction anteromedial with strap Grade II Body Position Hooklying Comments good feedback response- gentle deep hip stretch- MWM hip ER AROM feels good no pain at all & eliminated anterior L hip/groin pinch during piriformis and lat hip stretch (IR). Self-Care/Home Management Treatment Education Patient Education Home Exercise Program,Pain Management Other Education Continued ed during manual and self application to compliment stretches. Education on PPT and TA for spinal alignment support during added LE ext and trial prone press ups to decrease anterior chain abdominals and LEs tightness. PT-OP-T Assessment and Plan Start: 09/10/24 11:22 Freq: Status: Active Protocol: Document 09/29/24 11:38 SP (Rec: 09/29/24 12:49 SP [id number]) Physical Therapy Assessment Goals Three Impairment Decreased ability to walk for exercise due to pain. Short Term Goal (STG Pt will be educated in pain mgmt and proper standing/ ) sitting posture. 09/27/24: ed CP for pain mgt with pain cycle cold/burning /numb, provided sit, sleeping, standing and ADL HOs. STG Duration 10/27/24 progressing 09/27/24 Halfway Goal (LTG) With walking ~25 minutes on level ground, pain is less and less constant (ache). 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 09/27/24: did comment about kitchen chair discussed couch 20 min before need get up due to achiness in L hip. STG Duration 10/27/24 progressing 09/27/24 Halfway Goal (LTG) Reduce limping when first getting up from a chair after the first few steps 5 out of 10 times. LTG Duration 12/08/24 One Impairment Lacks appropriate self care HEP Short Term Goal (STG Pt will be educated in proper log roll transfer and ) body mechanics for ADLs. 09/13/24: Pt educated in log roll transfer off of plinth. 09/20/24: Handout issued: Transfers sit<>supine, I/S for sit<>stand. 09/22/24: improved for transfers utilizing log roll and UE support. STG Duration 10/27/24 progressed 09/22/24 (need educ for ADLS) Halfway Goal (LTG) Reduce limping when first getting up from a chair after the first few steps 5 out of 10 times. With walking ~25 minutes on level ground, pain is less and less constant (ache). Able to sit on kitchen chair > 20 minutes (30-40 minutes). 09/22/24: HEP: HO HS stretch supine and sitting, adductor stretch supine. Discussed anatomy and how tight hip musculature can affect mechanics of hip and why stretching selection at this time, perform can help comfort into standing/gait. LTG Duration 12/08/24 progression 09/22/24 Assessment Summary Assessment Pt good feedback response to manual and education on self application rolling pin/ball wall to compliment stretching HEP whick states is compliant and demonstrates good recall set up and direction. Pt had good response to hip extension and prone press up small range with cues for PPT and TA engagement to support active posterior chain strengthening and actively stretch anterior chain, verbalized understanding to stop if experiences pain. No c/o pain throughout tx, stated feels can take better steps leaving. Physical Therapy Plan Frequency and Duration Frequency of 2x/Week Treatment Duration of 12 treatment (weeks) Plan of Care Start 09/13/24 Date Plan of Care End 12/08/24 Date Therapeutic Interventions Therapeutic Gait Training,Home Exercise Program,Manual Therapy, Interventions Neuromuscular Re-education,Self-Care/Home Management, Soft Tissue Mobilization,Therapeutic Activities, Therapeutic Exercises Modalities Cold Pack/Ice Massage,Electric Stimulation,Hot Packs, Ultrasound Next Visit Focus/Plan Next Note Type Treatment Note Next Visit Plan Next: (Note: pt Osteoporosis) Recheck L>R lat hip and hip flexor stretching. Add hip and core strengthening for support gait endurance. Ask if applying postural aligment to ADLs with HOs last tx. Assess gait, stair amb, sensation, DTRs, LE neural glides, strength L knee /ankle. Recheck PSLR & OBED posture. Ther Ex: L hip HEP of ROM and strengthening. Sacral mob w/ osteoporosis precaution. POC: L L1-L2, L4 neural pain rehab. Improve posture/ Neuromuscular Reeducation, Therapeutic Ex ( strengthening/ROM), Therapeutic Activity (transfer training), manual therapy (STM/JMT), Gait & Balance training, Pt Education (HEP, Edema and pain mgmt).
--- NOTE | 2024-10-04 16:09 | PT.OPPN ---
Current Diagnoses Other chronic pain (10/04/24) Pain in left hip (10/04/24) Radiculopathy, lumbar region (10/04/24) Physical Therapy Progress Note PT OP: Lower Back/Lower Extremity Start: 09/30/24 16:59 Freq: Status: Active Protocol: Document 10/04/24 14:49 LRN (Rec: 10/04/24 16:08 LRN Laptop) Out-Patient Physical Therapy Visit Information Visit Information Visit Type Progress Note Visit Start Time 14:49 Visit Stop Time 14:31 Visit Number 6 (08/02 since Eval) Progress Note Due 11/03/24 Evaluation Information Evaluation Date 09/13/24 Precautions Precautions Surgery of R ankle plates and screws - 2013, Spine surgery 04/20/21 - L4-5, L5-S1 spondylolisthesis 2. L4-5, L5-S1 spinal stenosis with neurogenic claudication f/b L4-5, L5-S1 Postero-lateral and posterior interbody fusion-hypotension surgery. OP-PT Subjective Patient Comments Patient Comments States she is a little better. Got a Miracle Ball and would like to know if it is okay to use. Patient Questionnaires Lower Extremity Functional Scale LEFS Score 33 LEFS Impairment 40 to 59% Impaired (Score 32-47) Therapeutic Exercises Supine Exercises Iliopsoas stretch Supine Exercise Name REviewed HEP: Ilipsoas stretch- Eren Test position Side bilateral Equipment Used opp knee bent vs pulled toward chest Reps/Minutes 60 sec Comments R ok, L thigh rested on table due to quad very tight ( leg off hurt L knee) Lateral Hip stretch Supine Exercise Name Review HEP: 2xL, 1xR. Lateral hip stretch Side bilateral Equipment Used bent knee foot over opp LE- better stretch lateral hip Reps/Minutes 60sec Comments cued to place stretch foot above opp knee or hold in air. Piriformis stretch Supine Exercise Name Review HEP: 2xL, 1xR. 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 LE extension Prone Exercise Name Reviewed HEP Side bilateral Resistance L>R tight Equipment Used 2 pillows under pelvis, head resting on arms Reps/Minutes 5 reps Comments cued gentle PPT to neutral with TA fac, neutral ankle, lift/unweight thigh Standing Exercises Hip flexor Stretch Standing Exercise HEP review: lunge stance Name Side bilateral Resistance L>R Equipment Used BUEs at stairs, allow back heel lift off floor Reps/Minutes 60 sec hold x1 each side Comments Cued gentle/light front of hip toward door, no low back arch Self-Care/Home Management Treatment Education Other Education Briefly reviewed ex's from [employer] booklet. Recommended pt not position at rest in supine with ball on spine or low back/sacrum. Physical Therapy Assessment Goals Three Impairment Decreased ability to walk for exercise due to pain. Short Term Goal (STG Pt will be educated in pain mgmt and proper standing/ ) sitting posture. 09/27/24: ed CP for pain mgt with pain cycle cold/burning /numb, provided sit, sleeping, standing and ADL HOs. 10/03/24: Pt issued proper sitting/standing posture handout on 09/27/24. 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 10/04/24: Pt walking 1 mile with a little bit of difficulty. 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 09/27/24: did comment about kitchen chair discussed couch 20 min before need get up due to achiness in L hip. STG Duration 10/27/24 progressing 09/27/24 [facility] Goal (LTG) Reduce limping when first getting up from a chair after the first few steps 5 out of 10 times. LTG Duration 12/08/24 One Impairment Lacks appropriate self care HEP Short Term Goal (STG Pt will be educated in proper log roll transfer and ) body mechanics for ADLs. 09/13/24: Pt educated in log roll transfer off of plinth. 09/20/24: Handout issued: Transfers sit<>supine, I/S for sit<>stand. 09/22/24: improved for transfers utilizing log roll and UE support. STG Duration 10/27/24 progressed 09/22/24 (need educ for ADLS) Assistant Sales Director Goal (LTG) Reduce limping when first getting up from a chair after the first few steps 5 out of 10 times. With walking ~25 minutes on level ground, pain is less and less constant (ache). Able to sit on kitchen chair > 20 minutes (30-40 minutes). 09/22/24: HEP: HO HS stretch supine and sitting, adductor stretch supine. Discussed anatomy and how tight hip musculature can affect mechanics of hip and why stretching selection at this time, perform can help comfort into standing/gait. LTG Duration 12/08/24 progression 09/22/24 Assessment Summary Assessment Pt is a 69 yo female, initially w/LBP radiating into the L hip and thigh (lateral/anteior/groin, sometimes posterior), incr'd lordosis of lower T/S and L/S, WBing > RLE (due to LLE pain), decr'd L hip mob & hip core strength. The pt has been seen for 5 treatment visits and is slowly improving in her activity tolerance fo walking and sitting. Her pain is a little less and rated 4-5/10 (initially was 4-6/10). LEFS score improved from an impairment of 46% to 33%. She is tolerating exercises quite well, but is slow to progress as expected due to her co-morbidities and chronicity of her condition. Today, I reviewed lateral hip and sup/stand hip flexor stretches, but further review may be needed as pt has fair to poor recall. Review of ex's is a slow process. The pt will benefit from continued skilled physical therapy to work towards goals stated above. Physical Therapy Plan Frequency and Duration Frequency of 2x/Week Treatment Duration of 12 treatment (weeks) Plan of Care Start 09/13/24 Date Plan of Care End 12/08/24 Date Next Visit Focus/Plan Next Note Type Treatment Note Next Visit Plan Next: (Note: pt Osteoporosis) Recheck modified eren stretch/hip ext and ZAINAB ex. Ask if applying postural aligment to ADLs with HOs. Add hip and core strengthening for support of gait endurance. Assess gait, stair amb, sensation, DTRs, LE neural glides, strength L knee/ankle. Recheck PSLR & OBED posture. Ther Ex: L hip HEP of ROM and strengthening. Sacral mob w/osteoporosis precaution. POC: L L1-L2, L4 neural pain rehab. Improve posture/ Neuromuscular Reeducation, Therapeutic Ex ( strengthening/ROM), Therapeutic Activity (transfer training), manual therapy (STM/JMT), Gait & Balance training, Pt Education (HEP, Edema and pain mgmt).
--- NOTE | 2024-10-11 15:18 | PT.OTN ---
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 L4-5, L5-S1 spinal stenosis with neurogenic claudication f/b L4-5, L5-S1 Postero-lateral and posterior interbody fusion-hypotension surgery. OP-PT Subjective Patient Comments Patient Comments Pt reports purchased the blue miracle balls with book. Wants to see what and where can use them for decreased tightness and improve ROM in L hip and back. Therapeutic Exercises Supine Exercises HS stretch Supine Exercise Name added to HEP with HO Side left Resistance AAROM Equipment Used strap on foot Reps/Minutes 30 sec Comments cued TKE and slow into tension not into pain or change body pos. Adductor Stretch Supine Exercise Name Post manual Side left Equipment Used L foot inside R leg (KFO stretch & Modified Fig 4) Comments cued for level pelvis, only range gentle stretch- LB toward table Lateral Hip stretch Supine Exercise Name UPdated Lateral hip stretch with strap: with HO Side left Equipment Used bent knee foot over opp LE then use strap long lever arm- better lat hip Reps/Minutes 60sec Comments cued slow pacing gentle stretch, LB toward table support Sitting Exercises Hip Abduction Sitting Exercise added to HEp with HO Name Side bilateral Resistance TB #2 Reps/Minutes 60 sec hold then 15 r eps Comments good form and muscle tiring- no pain Other Exercises self STMs Other Exercise Name Miracle Ball under Maeve glut Side bilateral Equipment Used hooklying miracle blue (smaller than purple/same density) ball glut sustain Reps/Minutes 3 min total Comments sustained pressure gluteal region then added hip roll out- good response Manual Therapy Treatment Consent Patient gave verbal Yes consent for manual treatment Soft Tissue Mobilization Back Body Location L QL, ES Mobilization Type Rolling Intensity/Depth Moderate Body Position SL Comments gentle broad STMs L hip Body Location L quad, TFL, HS, ITB, adductor Mobilization Type Rolling,Sustained Pressure,Other Intensity/Depth hookying Comments gentle broad STMs leg on wedge, adductor supported KFO range not guarded STMs and contract/relax against isometric adduction then hip ER range allow. Joint Mobilizations L hip mob Joint hip ER with prox femur anterior glide, lateral & posterolateral Direction anteromedial with strap Grade II Body Position Hooklying Comments good feedback response- gentle deep hip stretch- MWM hip ER AROM feels good no pain at all & eliminated anterior L hip/groin pinch during piriformis and lat hip stretch (IR). Neuro Re-Education Treatment Balance Activities gait Details LLE wt acceptance Comments cued posture over LLE with glut and quad engagement over stance LLE with TA post manual and resisted hip abd seated, improved stable WB into LLE with distance steps. Self-Care/Home Management Treatment Education Patient Education Body Mechanics,Home Exercise Program,Pain Management, Posture,Safety Other Education Continued education proper use miracle balls for gentle STM sustained pressure into maeve gluteal region with LB allowance toward table- good feedback results home and in PT today. Modified Lateral hip stretch using strap today, better benefitted stretch and added hip clamshell seated for strength and education anatomy and mechanics WB over stance LLE with quad, glut and TA support improvement in stability/decreased limp, improved understanding. Physical Therapy Assessment Goals Three Impairment Decreased ability to walk for exercise due to pain. Short Term Goal (STG Pt will be educated in pain mgmt and proper standing/ ) sitting posture. 09/27/24: ed CP for pain mgt with pain cycle cold/burning /numb, provided sit, sleeping, standing and ADL HOs. 10/03/24: Pt issued proper sitting/standing posture handout on 09/27/24. STG Duration 10/27/24 (09/27/24: MET GOAL) Residential Goal (LTG) With walking ~25 minutes on level ground, pain is less and less constant (ache). 10/04/24: Pt walking 1 mile with a little bit of difficulty. LTG Duration 12/08/24 Two Impairment LBP, L hip pain radiating into the thigh lateral, anterior, sometimes industrial nurse Short Term Goal (STG Pt able to sit on kitchen chair > 20 minutes (30-40 ) minutes). 09/27/24: did comment about kitchen chair discussed couch 20 min before need get up due to achiness in L hip. STG Duration 10/27/24 progressing 09/27/24 Associate Data Scientist Goal (LTG) Reduce limping when first getting up from a chair after the first few steps 5 out of 10 times. LTG Duration 12/08/24 One Impairment Lacks appropriate self care HEP Short Term Goal (STG Pt will be educated in proper log roll transfer and ) body mechanics for ADLs. 09/13/24: Pt educated in log roll transfer off of plinth. 09/20/24: Handout issued: Transfers sit<>supine, I/S for sit<>stand. 09/22/24: improved for transfers utilizing log roll and UE support. STG Duration 10/27/24 progressed 09/22/24 (need educ for ADLS) Associate Data Scientist Goal (LTG) Reduce limping when first getting up from a chair after the first few steps 5 out of 10 times. With walking ~25 minutes on level ground, pain is less and less constant (ache). Able to sit on kitchen chair > 20 minutes (30-40 minutes). 09/22/24: HEP: HO HS stretch supine and sitting, adductor stretch supine. Discussed anatomy and how tight hip musculature can affect mechanics of hip and why stretching selection at this time, perform can help comfort into standing/gait. LTG Duration 12/08/24 progression 09/22/24 Assessment Summary Assessment Pt improved L hip ER AROM and flexibility after stretching today. Progressed hip strengthening against resistance seated today to assist stability of L hip after manual and into gait over stance LLE. Pt would benefit from continued L hip flexibility review and progress hip and core strengthening to allow strength to normalize gait and decrease limp. Physical Therapy Plan Frequency and Duration Frequency of 2x/Week Treatment Duration of 12 treatment (weeks) Plan of Care Start 09/13/24 Date Plan of Care End 12/08/24 Date Therapeutic Interventions Therapeutic Gait Training,Home Exercise Program,Manual Therapy, Interventions Neuromuscular Re-education,Self-Care/Home Management, Soft Tissue Mobilization,Therapeutic Activities, Therapeutic Exercises Modalities Cold Pack/Ice Massage,Electric Stimulation,Hot Packs, Ultrasound Next Visit Focus/Plan Next Note Type Treatment Note Next Visit Plan Next: (Note: pt Osteoporosis) Continue to progress hip and core strengthening for support of gait endurance. Recheck modified michael stretch/hip ext and ZAINAB ex. Ask if applying postural aligment to ADLs with HOs. Assess gait, stair amb, sensation, DTRs, LE neural glides, strength L knee/ankle. Recheck PSLR & OBED posture. Ther Ex: L hip HEP of ROM and strengthening. Sacral mob w/osteoporosis precaution. POC: L L1-L2, L4 neural pain rehab. Improve posture/ Neuromuscular Reeducation, Therapeutic Ex ( strengthening/ROM), Therapeutic Activity (transfer training), manual therapy (STM/JMT), Gait & Balance training, Pt Education (HEP, Edema and pain mgmt).
--- NOTE | 2024-10-13 15:35 | PT.OTN ---
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 L4-5, L5-S1 spinal stenosis with neurogenic claudication f/b L4-5, L5-S1 Postero-lateral and posterior interbody fusion-hypotension surgery. OP-PT Subjective Patient Comments Patient Comments Pt reports felt really good after last tx using miracle balls, stretching. 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 Therapeutic Exercises Supine Exercises Core Series Supine Exercise Name added to HEP with HO: SKFO, TA heel slide, LTR, TA march Resistance SKFO TB #2 teal at thighs Reps/Minutes 10 each LE each Comments cued PPT, TA, slow movement TA hip rolls (ER/IR) Supine Exercise Name added to HEP with HO (SKFO) Side bilateral Equipment Used TB #2 teal at thighs Reps/Minutes 20 reps alternating Comments good feedback response less tightness in glut/hips Prone Exercises Prone Press up Prone Exercise Name Hold discussed 10/11/24 LE extension Prone Exercise Name Hold discussed 10/11/24 Sitting Exercises Stretching Sitting Exercise trialed in PT: seated hip stretching: Pirif & HS Name Side bilateral Resistance L>R tightness Reps/Minutes 60 sec each LE each Comments cued leg ankle rest on opp knee, hip hinge gentle painfree range Hip Abduction Sitting Exercise reivewed- verbal Name Side bilateral Resistance TB #2 Reps/Minutes 60 sec hold then 15 r eps Comments good form and muscle tiring- no pain Standing Exercises Hip flexor Stretch Standing Exercise HEP review: lunge stance Name Side bilateral Resistance L>R Equipment Used 1UE support on door frame Reps/Minutes 60 sec hold x1 each side Comments Cued gentle/light front of hip toward door, no low back arch Other Exercises Self Hip Mobes Other Exercise Name Instruction self: L hip posterolateral and lateral hip distraction Resistance on floor- strap around post/pt prox thigh Equipment Used folded under strap Reps/Minutes 30 sec hold Comments good feedback deep gentle stretch, cues set up/proper form/direction pull Therapeutic Activity Therapeutic Activity body mechanics Reps/Minutes 5 reps AROM and 10# wt in bucket Comments 1. squatting- even BLE WBk hip hinge 2. mechanics lifting- Self-Care/Home Management Treatment Education Patient Education Body Mechanics,Home Exercise Program,Pain Management, Posture,Safety Other Education Continued education proper set up/form for self hip mobes, took pic pt phone for self recall/performance- good feedback response. Ed performance stretching, added core series and proper body mechanics picking up grandchildren limit swinging them as they want and try not do at all and ed them pt body can't do this right now. Can instruct them to do ex with her and let them help her do her HEP with good education for their future. Continue use cold pack for relief. Physical Therapy Assessment Goals Three Impairment Decreased ability to walk for exercise due to pain. Short Term Goal (STG Pt will be educated in pain mgmt and proper standing/ ) sitting posture. 09/27/24: ed CP for pain mgt with pain cycle cold/burning /numb, provided sit, sleeping, standing and ADL HOs. 10/03/24: Pt issued proper sitting/standing posture handout on 09/27/24. STG Duration 10/27/24 (09/27/24: MET GOAL) Brass Pickler Goal (LTG) With walking ~25 minutes on level ground, pain is less and less constant (ache). 10/04/24: Pt walking 1 mile with a little bit of difficulty. LTG Duration 12/08/24 Two Impairment LBP, L hip pain radiating into the thigh lateral, anterior, sometimes general dentist Short Term Goal (STG Pt able to sit on kitchen chair > 20 minutes (30-40 ) minutes). 09/27/24: did comment about kitchen chair discussed couch 20 min before need get up due to achiness in L hip. STG Duration 10/27/24 progressing 09/27/24 Brass Pickler Goal (LTG) Reduce limping when first getting up from a chair after the first few steps 5 out of 10 times. LTG Duration 12/08/24 One Impairment Lacks appropriate self care HEP Short Term Goal (STG Pt will be educated in proper log roll transfer and ) body mechanics for ADLs. 09/13/24: Pt educated in log roll transfer off of plinth. 09/20/24: Handout issued: Transfers sit<>supine, I/S for sit<>stand. 09/22/24: improved for transfers utilizing log roll and UE support. STG Duration 10/27/24 progressed 09/22/24 (need educ for ADLS) Brass Pickler Goal (LTG) Reduce limping when first getting up from a chair after the first few steps 5 out of 10 times. With walking ~25 minutes on level ground, pain is less and less constant (ache). Able to sit on kitchen chair > 20 minutes (30-40 minutes). 09/22/24: HEP: HO HS stretch supine and sitting, adductor stretch supine. Discussed anatomy and how tight hip musculature can affect mechanics of hip and why stretching selection at this time, perform can help comfort into standing/gait. LTG Duration 12/08/24 progression 09/22/24 Assessment Summary Assessment Pt good feedback response to instruction self manual L hip mobes with pt phone pic to recall and support decreased hip pain and increased flexibility feels after in PT. Initiated core and hip strengthening today for progression hip support WB. Some time spent proper body mechanics lifting and education on letting grandchildren do ex with her and decrease lifting/ swinging them to better health her back, better understanding will try not do thingk hurt back. But hoping do more ex to strength so not limp next tx. Physical Therapy Plan Frequency and Duration Frequency of 2x/Week Treatment Duration of 12 treatment (weeks) Plan of Care Start 09/13/24 Date Plan of Care End 12/08/24 Date Therapeutic Interventions Therapeutic Gait Training,Home Exercise Program,Manual Therapy, Interventions Neuromuscular Re-education,Self-Care/Home Management, Soft Tissue Mobilization,Therapeutic Activities, Therapeutic Exercises Modalities Cold Pack/Ice Massage,Electric Stimulation,Hot Packs, Ultrasound Next Visit Focus/Plan Next Note Type Treatment Note Next Visit Plan Next: Continue Ther Ex: L hip and core HEP of ROM and strengthening for gait endurance, glut engagement and lengthening L hip flexor and body mechanics for squat playing with grandchildren. (Note: pt Osteoporosis) Recheck modified michael stretch/hip ext and ZAINAB ex. Ask if applying postural aligment to ADLs with HOs. Assess gait, stair amb, sensation, DTRs, LE neural glides, strength L knee/ankle. Recheck PSLR & OBED posture. Sacral mob w/osteoporosis precaution. POC: L L1-L2, L4 neural pain rehab. Improve posture/ Neuromuscular Reeducation, Therapeutic Ex ( strengthening/ROM), Therapeutic Activity (transfer training), manual therapy (STM/JMT), Gait & Balance training, Pt Education (HEP, Edema and pain mgmt).
--- NOTE | 2024-10-25 16:44 | PT.OPPOC ---
Physical, Occupational & Speech Therapy At [facility] Current Diagnoses Other chronic pain (10/25/24) Pain in left hip (10/25/24) Radiculopathy, lumbar region (10/25/24) Visit Care Team Role Provider Type Lopez Bhakta MD Attending Provider Physician Family Provider Primary Care Provider Referring Provider Specialty: Family Practice Address: [address] [place] [address], [facility] Email: [email or web address] Plan Of Care PT OP: Lower Back/Lower Extremity Start: 09/30/24 16:59 Freq: Status: Active Protocol: Document 10/25/24 14:40 LRN (Rec: 10/25/24 15:49 LRN Laptop) Out-Patient Physical Therapy Visit Information Visit Information Visit Type Progress Note Visit Note MD appt 10/31/24 Visit Start Time 14:40 Visit Stop Time 15:30 Visit Number 9 (06/02 since PN) Progress Note Due 12/23/24 Evaluation Information Evaluation Date 09/13/24 Precautions Precautions Surgery of R ankle plates and screws - 2013, Spine surgery 04/20/21 - L4-5, L5-S1 spondylolisthesis 2. L4-5, L5-S1 spinal stenosis with neurogenic claudication f/b L4-5, L5-S1 Postero-lateral and posterior interbody fusion-hypotension surgery. OP-PT Subjective Patient Comments Patient Comments If consistent with PT home ex's, doesn't ache or limp as much. Patient Questionnaires Lower Extremity Functional Scale LEFS Score 38 LEFS Impairment 40 to 59% Impaired (Score 32-47) Hip Goniometric Range of Motion Hip Measured in Degrees Right Passive Straight Leg Raise 65 Left Passive Testing Position Supine Straight Leg Raise 60 Therapeutic Exercises Supine Exercises TA hip rolls (ER/IR) Supine Exercise Name HEP as SKFO Side bilateral Equipment Used TB #2 teal at thighs Reps/Minutes 25 reps alternating Comments Cued to keep hips stable as opp knee performs BKFO HS stretch Supine Exercise Name HEP Side left Equipment Used strap on foot Reps/Minutes 60 SH Comments cued slow into tension not into pain or change body pos . Lateral Hip stretch Supine Exercise Name DC'd UPdated Lat hip stretch w/strap. I/S heel above opp knee lat hip stret Side bilateral Comments Cued not to stretch into lateral thigh/hip pain. Prone Exercises Prone Press up Prone Exercise Name Minimal prone press up Reps/Minutes x 5 Manual Therapy Treatment Manual Traction Very very gentle L/S axial tx Details Tension applied at upper thighs for very slight axial tx. Body Position Hooklying Reps/Duration 4x Comments Relief of maeve lateral hip pain, centralizing into the LB. Self-Care/Home Management Treatment Education Other Education Discussed results of reassessment, goals, treatment, and plan of care (POC) with pt; pt agreeable to goals, treatment and POC. Physical Therapy Assessment Rehab Potential Rehabilitation Good Potential Evaluation Complexity Number of Personal 1-2 Factors/ Comorbidities Number of Body 4 or More Systems Impaired Clinical Evolving Presentation at Evaluation Impairments Impairments Activity Tolerance,Pain,Posture,ROM,Soft Tissue Mobility,Strength,Transfers Goals Three Impairment Decreased ability to walk for exercise due to pain. Short Term Goal (STG Pt will be educated in pain mgmt and proper standing/ ) sitting posture. 09/27/24: ed CP for pain mgt with pain cycle cold/burning /numb, provided sit, sleeping, standing and ADL HOs. 10/03/24: Pt issued proper sitting/standing posture handout on 09/27/24. STG Duration 10/27/24 (09/27/24: MET GOAL) Nursing Home Goal (LTG) With walking ~25 minutes on level ground, pain is less and less constant (ache). 10/04/24: Pt walking 1 mile with a little bit of difficulty. 10/25/24: Walking 2+ miles around [place], ~45- 60'. Less pain and not a constant ache. LTG Duration 12/23/24 progressed 10/25/24 (goal less pain needed) Two Impairment LBP, L hip pain radiating into the thigh lateral, anterior, sometimes forge helper Short Term Goal (STG Pt able to sit on kitchen chair > 20 minutes (30-40 ) minutes). 09/27/24: did comment about kitchen chair discussed couch 20 min before need get up due to achiness in L hip. 10/25/24: Can sit 20' before her LB down the middle, sometimes on the R side starts hurting, can be on the R or L hip pain. STG Duration 11/18/24 progressing 10/25/24 (Pain is in the center of the back). Nursing Home Goal (LTG) Reduce limping when first getting up from a chair after the first few steps 5 out of 10 times. 10/25/24: Pain getting up from the chair is usually on the L side, can be in the middle and sometimes on the R side. LTG Duration 12/23/24 One Impairment Lacks appropriate self care HEP Short Term Goal (STG Pt will be educated in proper log roll transfer and ) body mechanics for ADLs. 09/13/24: Pt educated in log roll transfer off of plinth. 09/20/24: Handout issued: Transfers sit<>supine, I/S for sit<>stand. 09/22/24: improved for transfers utilizing log roll and UE support. STG Duration 11/11/24 progressed 09/22/24 (need educ for ADLS) Hands Assembler Goal (LTG) Reduce limping when first getting up from a chair after the first few steps 5 out of 10 times. With walking ~25 minutes on level ground, pain is less and less constant (ache). Able to sit on kitchen chair > 20 minutes (30-40 minutes). 09/22/24: HEP: HO HS stretch supine and sitting, adductor stretch supine. Discussed anatomy and how tight hip musculature can affect mechanics of hip and why stretching selection at this time, perform can help comfort into standing/gait. LTG Duration 12/23/24 progression 10/25/24 Assessment Summary Assessment Pt is a 69 yo female, initially w/LBP radiating into the L hip and thigh (lateral/anterior/groin, sometimes posterior), incr'd lordosis of lower T/S and L/S, WBing > RLE (due to LLE pain), decr'd L hip mob & hip core strength. The pt has been seen for 9 treatment visits. Her pain is a little less, rated 4/10 (previously 4-5 /10), but is also felt sometimes in the L lateral thigh . She has improved in her activity tolerance, walking 20-35' longer although her pain rating is the same. LEFS score is worse today with impairment 38% (was 33%) , due to maeve hip/lateral thigh pain (was initially on the L side). She was being advanced in her rehab exercise program, but now appears to be in a flare up, which is not unexpected due to her co-morbidities and chronicity of her condition. The pt would benefit from continued skilled physical therapy to minimize her pain as her activity level continues to increase and to improve her static positioning tolerance and tolerance to daily activities/gait upon first standing. Physical Therapy Plan Frequency and Duration Frequency of 2x/Week Treatment Duration of 8 treatment (weeks) Plan of Care Start 10/25/24 Date Plan of Care End 12/23/24 Date Therapeutic Interventions Therapeutic Gait Training,Home Exercise Program,Manual Therapy, Interventions Neuromuscular Re-education,Self-Care/Home Management, Soft Tissue Mobilization,Therapeutic Activities, Therapeutic Exercises Next Visit Focus/Plan Next Note Type Treatment Note Next Visit Plan (Note: pt Osteoporosis) Next: Evon ROY'd UPdated Lateral hip stretch with strap and reissue Calf & Hamstring stretch as Hamstring/LE neural stretch. Continue Ther Ex: L hip and core HEP of ROM and strengthening for gait endurance, glut engagement and lengthening L hip flexor and body mechanics for squat playing with grandchildren. Recheck modified michael stretch/hip ext and HOLD ZAINAB ex. Ask if applying postural aligment to ADLs with HOs. Assess gait, stair amb, sensation, DTRs, LE neural glides, strength L knee/ankle. Recheck OBED posture. POC: L L1-L2, L4 neural pain rehab. Improve posture/ Neuromuscular Reeducation, Therapeutic Ex ( strengthening/ROM), Therapeutic Activity (transfer training), manual therapy (STM-note pt w/Osteoporosis), Gait & Balance training, Pt Education (HEP, Edema and pain mgmt). Plan of Care Dates Plan of Care Start Date 10/25/24 Plan of Care End Date 12/23/24 Electronically Signed by: Laurel Guy, PT 10/25/24 1708 If you are in agreement with this Plan of Care, please return a signed and dated copy. I have reviewed this Plan of Care and certify that the skilled therapy services above are required to meet the patient?s needs. Physician Signature Date Printed Name and Credentials Clinical Instructor Signature Printed Name and Credentials
--- NOTE | 2024-10-25 16:49 | PT.OPPOC ---
Physical, Occupational & Speech Therapy At [facility] Current Diagnoses Other chronic pain (10/25/24) Pain in left hip (10/25/24) Radiculopathy, lumbar region (10/25/24) Visit Care Team Role Provider Type Lopez Bhakta MD Attending Provider Physician Family Provider Primary Care Provider Referring Provider Specialty: Family Practice Address: [address] [place] [address], [facility] Email: [email or web address] Plan Of Care PT OP: Lower Back/Lower Extremity Start: 09/30/24 16:59 Freq: Status: Active Protocol: Document 10/25/24 14:40 LRN (Rec: 10/25/24 15:49 LRN Laptop) Out-Patient Physical Therapy Visit Information Visit Information Visit Type Progress Note Visit Note MD appt 10/31/24 Visit Start Time 14:40 Visit Stop Time 15:30 Visit Number 9 (06/02 since PN) Progress Note Due 12/23/24 Evaluation Information Evaluation Date 09/13/24 Precautions Precautions Osteoporosis, Surgery of R ankle plates and screws - 2013, Spine surgery 04/20/21 - L4-5, L5-S1 spondylolisthesis 2. L4-5, L5-S1 spinal stenosis with neurogenic claudication f/b L4-5, L5-S1 Postero-lateral and posterior interbody fusion-hypotension surgery. OP-PT Subjective Patient Comments Patient Comments If consistent with PT home ex's, doesn't ache or limp as much. Patient Questionnaires Lower Extremity Functional Scale LEFS Score 38 LEFS Impairment 40 to 59% Impaired (Score 32-47) Hip Goniometric Range of Motion Hip Measured in Degrees Right Passive Straight Leg Raise 65 Left Passive Testing Position Supine Straight Leg Raise 60 Therapeutic Exercises Supine Exercises TA hip rolls (ER/IR) Supine Exercise Name HEP as SKFO Side bilateral Equipment Used TB #2 teal at thighs Reps/Minutes 25 reps alternating Comments Cued to keep hips stable as opp knee performs BKFO HS stretch Supine Exercise Name HEP Side left Equipment Used strap on foot Reps/Minutes 60 SH Comments cued slow into tension not into pain or change body pos . Lateral Hip stretch Supine Exercise Name DC'd UPdated Lat hip stretch w/strap. I/S heel above opp knee lat hip stret Side bilateral Comments Cued not to stretch into lateral thigh/hip pain. Prone Exercises Prone Press up Prone Exercise Name Minimal prone press up Reps/Minutes x 5 Manual Therapy Treatment Manual Traction Very very gentle L/S axial tx Details Tension applied at upper thighs for very slight axial tx. Body Position Hooklying Reps/Duration 4x Comments Relief of maeve lateral hip pain, centralizing into the LB. Self-Care/Home Management Treatment Education Other Education Discussed results of reassessment, goals, treatment, and plan of care (POC) with pt; pt agreeable to goals, treatment and POC. Physical Therapy Assessment Rehab Potential Rehabilitation Good Potential Evaluation Complexity Number of Personal 1-2 Factors/ Comorbidities Number of Body 4 or More Systems Impaired Clinical Evolving Presentation at Evaluation Impairments Impairments Activity Tolerance,Pain,Posture,ROM,Soft Tissue Mobility,Strength,Transfers Goals Three Impairment Decreased ability to walk for exercise due to pain. Short Term Goal (STG Pt will be educated in pain mgmt and proper standing/ ) sitting posture. 09/27/24: ed CP for pain mgt with pain cycle cold/burning /numb, provided sit, sleeping, standing and ADL HOs. 10/03/24: Pt issued proper sitting/standing posture handout on 09/27/24. STG Duration 10/27/24 (09/27/24: MET GOAL) [facility] Goal (LTG) With walking ~25 minutes on level ground, pain is less and less constant (ache). 10/04/24: Pt walking 1 mile with a little bit of difficulty. 10/25/24: Walking 2+ miles around [place], ~45- 60'. Less pain and not a constant ache. 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 09/27/24: did comment about kitchen chair discussed couch 20 min before need get up due to achiness in L hip. 10/25/24: Can sit 20' before her LB down the middle, sometimes on the R side starts hurting, can be on the R or L hip pain. STG Duration 11/18/24 progressing 10/25/24 (Pain is in the center of the back). Smudger Goal (LTG) Reduce limping when first getting up from a chair after the first few steps 5 out of 10 times. 10/25/24: Pain getting up from the chair is usually on the L side, can be in the middle and sometimes on the R side. LTG Duration 12/23/24 One Impairment Lacks appropriate self care HEP Short Term Goal (STG Pt will be educated in proper log roll transfer and ) body mechanics for ADLs. 09/13/24: Pt educated in log roll transfer off of plinth. 09/20/24: Handout issued: Transfers sit<>supine, I/S for sit<>stand. 09/22/24: improved for transfers utilizing log roll and UE support. STG Duration 11/11/24 progressed 09/22/24 (need educ for ADLS) Smudger Goal (LTG) Reduce limping when first getting up from a chair after the first few steps 5 out of 10 times. With walking ~25 minutes on level ground, pain is less and less constant (ache). Able to sit on kitchen chair > 20 minutes (30-40 minutes). 09/22/24: HEP: HO HS stretch supine and sitting, adductor stretch supine. Discussed anatomy and how tight hip musculature can affect mechanics of hip and why stretching selection at this time, perform can help comfort into standing/gait. LTG Duration 12/23/24 progression 10/25/24 Assessment Summary Assessment Pt is a 69 yo female, initially w/LBP radiating into the L hip and thigh (lateral/anterior/groin, sometimes posterior), incr'd lordosis of lower T/S and L/S, WBing > RLE (due to LLE pain), decr'd L hip mob & hip core strength. The pt has been seen for 9 treatment visits. Her pain is a little less, rated 4/10 (previously 4-5 /10), but is also felt sometimes in the L lateral thigh . She has improved in her activity tolerance, walking 20-35' longer although her pain rating is the same. LEFS score is worse today with impairment 38% (was 33%) , due to maeve hip/lateral thigh pain (was initially on the L side). She was being advanced in her rehab exercise program, but now appears to be in a flare up, which is not unexpected due to her co-morbidities and chronicity of her condition. The pt would benefit from continued skilled physical therapy to minimize her pain as her activity level continues to increase and to improve her static positioning tolerance and tolerance to daily activities/gait upon first standing. Physical Therapy Plan Frequency and Duration Frequency of 2x/Week Treatment Duration of 8 treatment (weeks) Plan of Care Start 10/25/24 Date Plan of Care End 12/23/24 Date Therapeutic Interventions Therapeutic Gait Training,Home Exercise Program,Manual Therapy, Interventions Neuromuscular Re-education,Self-Care/Home Management, Soft Tissue Mobilization,Therapeutic Activities, Therapeutic Exercises Next Visit Focus/Plan Next Note Type Treatment Note Next Visit Plan (Note: pt Osteoporosis) Next: Evon ROY'd UPdated Lateral hip stretch with strap and reissue Calf & Hamstring stretch as Hamstring/LE neural stretch. Continue Ther Ex: L hip and core HEP of ROM and strengthening for gait endurance, glut engagement and lengthening L hip flexor and body mechanics for squat playing with grandchildren. Recheck modified michael stretch/hip ext and HOLD ZAINAB ex. Ask if applying postural aligment to ADLs with HOs. Assess gait, stair amb, sensation, DTRs, LE neural glides, strength L knee/ankle. Recheck OBED posture. POC: L L1-L2, L4 neural pain rehab. Improve posture/ Neuromuscular Reeducation, Therapeutic Ex ( strengthening/ROM), Therapeutic Activity (transfer training), manual therapy (STM-note pt w/Osteoporosis), Gait & Balance training, Pt Education (HEP, Edema and pain mgmt). Plan of Care Dates Plan of Care Start Date 10/25/24 Plan of Care End Date 12/23/24 Electronically Signed by: Laurel Guy, PT 10/25/24 0608 If you are in agreement with this Plan of Care, please return a signed and dated copy. I have reviewed this Plan of Care and certify that the skilled therapy services above are required to meet the patient?s needs. Physician Signature Date Printed Name and Credentials Clinical Instructor Signature Printed Name and Credentials
--- NOTE | 2024-10-27 15:57 | PT.OTN ---
Current Diagnoses Other chronic pain (10/27/24) Pain in left hip (10/27/24) Radiculopathy, lumbar region (10/27/24) Physical Therapy Treatment Note PT OP: Lower Back/Lower Extremity Start: 09/30/24 16:59 Freq: Status: Active Protocol: Document 10/27/24 14:37 LRN (Rec: 10/27/24 15:26 LRN Laptop) Out-Patient Physical Therapy Visit Information Visit Information Visit Type Treatment Note Visit Note MD berkowitz 10/31/24 Visit Start Time 14:37 Visit Stop Time 15:19 Visit Number 10 Progress Note Due 12/23/24 Evaluation Information Evaluation Date 09/13/24 Precautions Precautions Osteoporosis, Surgery of R ankle plates and screws - 2013, Spine surgery 04/20/21 - L4-5, L5-S1 spondylolisthesis 2. L4-5, L5-S1 spinal stenosis with neurogenic claudication f/b L4-5, L5-S1 Postero-lateral and posterior interbody fusion-hypotension surgery. OP-PT Subjective Patient Comments Patient Comments States the L hip and posterior thigh pain is present, but in supine the pain is on the R side. Only able to do lateral hip stretch. OP Gait Assessment Comments Gait Comments Pt heavy leans left when in WBing and lifting R LE. Therapeutic Exercises Supine Exercises LE neural/HS stretch Side bilateral Reps/Minutes 3 sets of HS stretch f/b neural glide Comments Cuing for LE positioning during ex and routine for stretch, NO PAIN Core Series Supine Exercise Name Core series: SKFO, TA heel slide, small rot LTR, TA march Resistance SKFO TB #2 teal at thighs Reps/Minutes 8-10 each LE each Comments cued Neutral spine positioning vs PPT, TA, slow movements Lateral Hip stretch Supine Exercise Name Heel above opp knee for lat hip stretch Side bilateral Reps/Minutes 10 SH x 6 Comments Cued to not stretch into pain Therapeutic Activity Therapeutic Activity Transfer training Name Sup<>sit Reps/Minutes 3' Comments Cuing needed for proper log roll technique Manual Therapy Treatment Soft Tissue Mobilization L hip Body Location Distraction of back with minimal inferior pressure at thighs Mobilization Type Sustained Pressure Manual Traction Very very gentle L/S axial tx Details Tension applied at upper thighs for very slight axial tx. Body Position Hooklying Reps/Duration 1x Comments Relief of R lateral hip pain, centralizing into the LB. Self-Care/Home Management Treatment Activities Self-Care/Home Reissued: DC'd UPdated Lateral hip stretch with strap Management and reissued the Calf & Hamstring stretch instead to Activities a LE neural/hamstring stretch. DC'd Abdominal tightening with a bridge. Physical Therapy Assessment Goals Three Impairment Decreased ability to walk for exercise due to pain. Short Term Goal (STG Pt will be educated in pain mgmt and proper standing/ ) sitting posture. 09/27/24: ed CP for pain mgt with pain cycle cold/burning /numb, provided sit, sleeping, standing and ADL HOs. 10/03/24: Pt issued proper sitting/standing posture handout on 09/27/24. STG Duration 10/27/24 (09/27/24: MET GOAL) Alf Goal (LTG) With walking ~25 minutes on level ground, pain is less and less constant (ache). 10/04/24: Pt walking 1 mile with a little bit of difficulty. 10/25/24: Walking 2+ miles around [place], ~45- 60'. Less pain and not a constant ache. 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 09/27/24: did comment about kitchen chair discussed couch 20 min before need get up due to achiness in L hip. 10/25/24: Can sit 20' before her LB down the middle, sometimes on the R side starts hurting, can be on the R or L hip pain. STG Duration 11/18/24 progressing 10/25/24 (Pain is in the center of the back). Tank Car Inspector Goal (LTG) Reduce limping when first getting up from a chair after the first few steps 5 out of 10 times. 10/25/24: Pain getting up from the chair is usually on the L side, can be in the middle and sometimes on the R side. LTG Duration 12/23/24 One Impairment Lacks appropriate self care HEP Short Term Goal (STG Pt will be educated in proper log roll transfer and ) body mechanics for ADLs. 09/13/24: Pt educated in log roll transfer off of plinth. 09/20/24: Handout issued: Transfers sit<>supine, I/S for sit<>stand. 09/22/24: improved for transfers utilizing log roll and UE support. 10/27/24: Reissued Transfers Handout. STG Duration 11/11/24 progressed 10/27/24 (need educ for ADLS) Alf Goal (LTG) Reduce limping when first getting up from a chair after the first few steps 5 out of 10 times. With walking ~25 minutes on level ground, pain is less and less constant (ache). Able to sit on kitchen chair > 20 minutes (30-40 minutes). 09/22/24: HEP: HO HS stretch supine and sitting, adductor stretch supine. Discussed anatomy and how tight hip musculature can affect mechanics of hip and why stretching selection at this time, perform can help comfort into standing/gait. 10/27/24: Reissued DC'd UPdated Lateral hip stretch with strap and reissue Calf & Hamstring stretch as Hamstring/LE neural stretch. LTG Duration 12/23/24 progression 10/27/24 Assessment Summary Assessment 69 yo female, initially w/LBP radiating into the L hip and thigh (lateral/anterior/groin, sometimes posterior) , incr'd lordosis of lower T/S and L/S, decr'd L hip mob & hip core strength. L side Sciatic (hip pain) relieved and became R sided pain in supine; R sided pain relieved with very gentle spinal axial traction x 4. Pt able to partially relieve (change pain) with UE self traction pull. Poor sit<>sup transfer technique, needs further training. R scapular discomfort w/L BKFO possibly due to fascial tension of back or active trunk ext with L BKFO mvmt. Gait is with noticeable L lean today on LLE WBing. Physical Therapy Plan Frequency and Duration Frequency of 2x/Week Treatment Duration of 8 treatment (weeks) Plan of Care Start 10/25/24 Date Plan of Care End 12/23/24 Date Next Visit Focus/Plan Next Note Type Treatment Note Next Visit Plan (Note: pt Osteoporosis) Next: Training for body mechanics w/ADLs. Add MFR to back from sacral region to posterior scapula. Gait training to minimize L anterior thigh pain when L wbing. Continue Ther Ex: Core stabilization and L hip HEP of ROM and strengthening for gait endurance, glut engagement and lengthening L hip flexor and body mechanics for squat playing with grandchildren. Recheck modified michael stretch/hip ext and HOLD ZAINAB ex. Ask if applying postural aligment to ADLs with HOs. Assess stair amb, sensation, DTRs, strength L knee/ankle. Recheck OBED posture. POC: L L1-L2, L4 neural pain rehab. Improve posture/ Neuromuscular Reeducation, Therapeutic Ex ( strengthening/ROM), Therapeutic Activity (transfer training), manual therapy (STM-note pt w/Osteoporosis), Gait & Balance training, Pt Education (HEP, Edema and pain mgmt).
--- NOTE | 2024-12-08 15:57 | PT.OPPN ---
Current Diagnoses Other chronic pain (12/08/24) Pain in left hip (12/08/24) Radiculopathy, lumbar region (12/08/24) Physical Therapy Progress Note PT OP: Lower Back/Lower Extremity Start: 09/30/24 16:59 Freq: Status: Active Protocol: Document 12/08/24 13:53 JZ (Rec: 12/08/24 15:54 JZ [id number]) Out-Patient Physical Therapy Visit Information Visit Information Visit Type Treatment Note Visit Note MD berkowitz 10/31/24 Visit Start Time 13:55 Visit Stop Time 14:30 Visit Number 11 Progress Note Due 01/07/25 Precautions Precautions Osteoporosis, Surgery of R ankle plates and screws - 2013, Spine surgery 04/20/21 - L4-5, L5-S1 spondylolisthesis 2. L4-5, L5-S1 spinal stenosis with neurogenic claudication f/b L4-5, L5-S1 Postero-lateral and posterior interbody fusion-hypotension surgery. OP-PT Subjective Patient Comments Patient Comments History of current diagnosis: Patient reports L hip that has been chronic for the last few years. She reports since starting PT she feels the pain has improved a little. Her pain is worse in the morning. 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 She sometimes also has pain in her back and into her R hip Pain description: Dull, achy Pain 0-10/10 (current): 4/10 Pain 0-10/10 (worst): 6/10 - sitting for extended period Pain 0-10/10 (best): 2/10 - at end of day Aggravating: Sitting for extended periods Alleviating: Moving around Function prior to injury: Independent with all ADLs Function current: Independent with all ADLs - limited with lifting things, carrying bags of groceries. Patient goals: Find home exercises to manage symptoms and continue to make progress. Hip Goniometric Range of Motion Hip Measured in Degrees Right Passive Flexion w/Knee 130 Flexed Internal Rotation 30 External Rotation 45 Left Passive Straight Leg Raise 120 Internal Rotation 30 External Rotation 40 Comments Pain reproduction with hip flexion Physical Therapy Assessment Goals Four Impairment HEP independence Short Term Goal (STG Patient will report being comfortable with continuing ) her HEP independently. Three Impairment Decreased ability to walk for exercise due to pain. Short Term Goal (STG Pt will be educated in pain mgmt and proper standing/ ) sitting posture. 09/27/24: ed CP for pain mgt with pain cycle cold/burning /numb, provided sit, sleeping, standing and ADL HOs. 10/03/24: Pt issued proper sitting/standing posture handout on 09/27/24. STG Duration 10/27/24 (09/27/24: MET GOAL) [facility]iary Goal (LTG) With walking ~25 minutes on level ground, pain is less and less constant (ache). 10/04/24: Pt walking 1 mile with a little bit of difficulty. 10/25/24: Walking 2+ miles around [place], ~45- 60'. Less pain and not a constant ache. 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 09/27/24: did comment about kitchen chair discussed couch 20 min before need get up due to achiness in L hip. 10/25/24: Can sit 20' before her LB down the middle, sometimes on the R side starts hurting, can be on the R or L hip pain. STG Duration 11/18/24 progressing 10/25/24 (Pain is in the center of the back). Rn Admit Goal (LTG) Reduce limping when first getting up from a chair after the first few steps 5 out of 10 times. 10/25/24: Pain getting up from the chair is usually on the L side, can be in the middle and sometimes on the R side. LTG Duration 12/23/24 One Impairment Lacks appropriate self care HEP Short Term Goal (STG Pt will be educated in proper log roll transfer and ) body mechanics for ADLs. 09/13/24: Pt educated in log roll transfer off of plinth. 09/20/24: Handout issued: Transfers sit<>supine, I/S for sit<>stand. 09/22/24: improved for transfers utilizing log roll and UE support. 10/27/24: Reissued Transfers Handout. STG Duration 11/11/24 progressed 09/04/25 (need educ for ADLS) Penitentiary Goal (LTG) Reduce limping when first getting up from a chair after the first few steps 5 out of 10 times. With walking ~25 minutes on level ground, pain is less and less constant (ache). Able to sit on kitchen chair > 20 minutes (30-40 minutes). 09/22/24: HEP: HO HS stretch supine and sitting, adductor stretch supine. Discussed anatomy and how tight hip musculature can affect mechanics of hip and why stretching selection at this time, perform can help comfort into standing/gait. 10/27/24: Reissued DC'd UPdated Lateral hip stretch with strap and reissue Calf & Hamstring stretch as Hamstring/LE neural stretch. LTG Duration 12/23/24 progression 10/27/24 Assessment Summary Assessment Patient presenting to PT after 10 visits for L hip pain . Patient has reported some progress with pain levels and general function. Her current presentation is consistent with L hip osteoarthritis and patient will benefit from short round of PT to promote independence with home program. Physical Therapy Plan Frequency and Duration Frequency of 2x/Week Treatment Duration of 8 treatment (weeks) Plan of Care Start 10/25/24 Date Plan of Care End 12/23/24 Date Next Visit Focus/Plan Next Note Type Treatment Note Next Visit Plan Add hip mobility exercises and strengthening in symptom free ranges. Add SLDL, split squats, posterior tap downs, hip airplanes.
--- NOTE | 2024-12-12 15:17 | PT.OPDS ---
Current Diagnoses Other chronic pain (12/12/24) Pain in left hip (12/12/24) Radiculopathy, lumbar region (12/12/24) Visit Care Team Role Provider Type Lopez Bhakta MD Attending Provider Physician Family Provider Primary Care Provider Referring Provider Specialty: Family Practice Address: [address] [place] [address], [facility] Email: [email or web address] Visit Number Visit Number 12 Discharge Summary PT OP: Lower Back/Lower Extremity Start: 09/30/24 16:59 Freq: Status: Active Protocol: Document 12/12/24 13:01 GIANA (Rec: 12/12/24 15:16 GIANA [id number]) Out-Patient Physical Therapy Visit Information Visit Information Visit Type Discharge Summary Visit Start Time 13:05 Visit Stop Time 13:45 Visit Number 12 Progress Note Due 01/07/25 Precautions Precautions Osteoporosis, Surgery of R ankle plates and screws - 2013, Spine surgery 04/20/21 - L4-5, L5-S1 spondylolisthesis 2. L4-5, L5-S1 spinal stenosis with neurogenic claudication f/b L4-5, L5-S1 Postero-lateral and posterior interbody fusion-hypotension surgery. OP-PT Subjective Patient Comments Patient Comments Patient reports she would like for today to be her last formal PT session. She feels comfortable continuing the exercises from today's session independently. Therapeutic Exercises Supine Exercises Supine bridges Reps/Minutes 3x10 Sitting Exercises Seated hip adduction isometrics Resistance basketball Reps/Minutes x20, 5 squeeze Hip Abduction Resistance Blue band Reps/Minutes 2x10 Standing Exercises Split squats Reps/Minutes 2x10, UE support Deep squat with UE support Reps/Minutes x15 Lateral band walk Resistance Level 1 band (blue) Reps/Minutes 3x10 steps each direction Standing marches Equipment Used Blue band Reps/Minutes 2x10 Physical Therapy Assessment Goals Four Impairment HEP independence Short Term Goal (STG Patient will report being comfortable with continuing ) her HEP independently. - Met (12/12/2024) Three Impairment Decreased ability to walk for exercise due to pain. Short Term Goal (STG Pt will be educated in pain mgmt and proper standing/ ) sitting posture. 09/27/24: ed CP for pain mgt with pain cycle cold/burning /numb, provided sit, sleeping, standing and ADL HOs. 10/03/24: Pt issued proper sitting/standing posture handout on 09/27/24. STG Duration 10/27/24 (09/27/24: MET GOAL) Fpc Goal (LTG) With walking ~25 minutes on level ground, pain is less and less constant (ache). 10/04/24: Pt walking 1 mile with a little bit of difficulty. 10/25/24: Walking 2+ miles around [place], ~45- 60'. Less pain and not a constant ache. LTG Duration 12/23/24 progressed 10/25/24 (goal less pain needed) Two Impairment LBP, L hip pain radiating into the thigh lateral, anterior, sometimes cio Short Term Goal (STG Pt able to sit on kitchen chair > 20 minutes (30-40 ) minutes). 09/27/24: did comment about kitchen chair discussed couch 20 min before need get up due to achiness in L hip. 10/25/24: Can sit 20' before her LB down the middle, sometimes on the R side starts hurting, can be on the R or L hip pain. STG Duration 11/18/24 progressing 10/25/24 (Pain is in the center of the back). Fpc Goal (LTG) Reduce limping when first getting up from a chair after the first few steps 5 out of 10 times. 10/25/24: Pain getting up from the chair is usually on the L side, can be in the middle and sometimes on the R side. LTG Duration 12/23/24 One Impairment Lacks appropriate self care HEP Short Term Goal (STG Pt will be educated in proper log roll transfer and ) body mechanics for ADLs. 09/13/24: Pt educated in log roll transfer off of plinth. 09/20/24: Handout issued: Transfers sit<>supine, I/S for sit<>stand. 09/22/24: improved for transfers utilizing log roll and UE support. 10/27/24: Reissued Transfers Handout. STG Duration 11/11/24 progressed 10/27/24 (need educ for ADLS) Operations Planner Goal (LTG) Reduce limping when first getting up from a chair after the first few steps 5 out of 10 times. With walking ~25 minutes on level ground, pain is less and less constant (ache). Able to sit on kitchen chair > 20 minutes (30-40 minutes). 09/22/24: HEP: HO HS stretch supine and sitting, adductor stretch supine. Discussed anatomy and how tight hip musculature can affect mechanics of hip and why stretching selection at this time, perform can help comfort into standing/gait. 10/27/24: Reissued DC'd UPdated Lateral hip stretch with strap and reissue Calf & Hamstring stretch as Hamstring/LE neural stretch. LTG Duration 12/23/24 progression 10/27/24 Assessment Summary Assessment Treatment focused on reviewing home exercise program. Patient tolerated treatment well with no increases in pain levels. Time was spent reviewing home exercise program and patient expressed confidence continuing them independently. Because of patient desire for discharge, today will be patient's last formal PT session. Physical Therapy Plan Frequency and Duration Frequency of 2x/Week Treatment Duration of 8 treatment (weeks) Plan of Care Start 10/25/24 Date Plan of Care End 12/23/24 Date Next Visit Focus/Plan Next Note Type Treatment Note Next Visit Plan Discharge plan of care
== END 2024-12-14 10:59 | disposition home or self-care (01) ==
LOC: PHYS 13:00
PROVIDERS: Family Provider Family Medicine; PCP Family Medicine; Referring Provider Family Medicine; Visit Provider Family Medicine
DX: M25.552 Pain in left hip (principal); G89.29 Other chronic pain; M54.16 Radiculopathy, lumbar region
CPT/HCPCS: 97110; 97140; 97162; 97530; 97535